=== PATIENT | male | born 1950 | race Caucasian/White ===

== ENCOUNTER 2018-11-28 12:26 | Emergency (ER) | payer MEDICARE, BC ==
[2018-11-28] MEDS ORDERED: Ondansetron 4 MG/2 ML SDV IM ONE (13:03)
--- NOTE | 2018-11-28 13:03 | EDM.PDOC ---
ED HPI GENERAL MEDICAL PROBLEM - General Chief Complaint: Back Pain or Injury Stated Complaint: DIZZY,VOMITING,BACK PAIN Time Seen by Provider: 11/28/18 12:49 Source of Information: Reports: Patient, Family, RN, RN Notes Reviewed History Limitations: Reports: No Limitations - History of Present Illness INITIAL COMMENTS - FREE TEXT/NARRATIVE: Patient presents to the ED at [facility] for the evaluation of left mid thoracic back pain. Patient states he does not remember any exact injury. He thinks his back pain is from "overuse." He states the pain is sharp, stabbing, and throbbing, especially with movements. The patient is also having nausea and vomiting when the pain is at its worse. No previous history of any injury or trauma. No previous back surgeries. He denies any radiation of the pain. Deep breaths do not make the pain worse. Onset Date: 11/27/18 Duration: Constant Location: Reports: Back Quality: Reports: Sharp, Stabbing, Throbbing Severity: Severe Improves with: Reports: Rest Worsens with: Reports: Movement Context: Denies: Activity, Sick Contact, Trauma Associated Symptoms: Reports: Nausea/Vomiting Treatments [employer]: Reports: Acetaminophen Left Middle Back Pain Score (Numeric/FACES): 10 - Related Data Allergies Allergy/AdvReac Type Severity Reaction Status Date / Time No Known Drug Allergies Allergy Other Verified 11/28/18 12:34 Home Meds: Home Meds Cyclobenzaprine HCl 10 mg PO Q8H PRN #10 tablet 11/28/18 [Rx] Ondansetron HCl [Ondansetron] 4 mg PO Q8H PRN #10 tablet 11/28/18 [Rx] Past Medical History Other Endocrine/Metabolic History: ?diabetes. Pt is supposed to be on Metformin however has not been taking it. - Past Surgical History Musculoskeletal Surgical History: Reports: Knee Replacement Social & Family History - Tobacco Use Smoking Status *Q: Never Smoker - Recreational Drug Use Recreational Drug Use: No ED ROS GENERAL - Review of Systems Review Of Systems: See Below Constitutional: Denies: Fever, Chills Respiratory: Denies: Shortness of Breath, Cough Cardiovascular: Denies: Chest Pain, Palpitations GI/Abdominal: Reports: Nausea, Vomiting Musculoskeletal: Reports: Back Pain Skin: Reports: No Symptoms Neurological: Reports: No Symptoms ED EXAM, UPPER BACK/NECK PAIN - Physical Exam Exam: See Below Exam Limited By: No Limitations General Appearance: Alert, No Apparent Distress Head Exam: Atraumatic, Normocephalic Neck Exam: Non-Tender Nexus Criteria: No: Posterior, Midline Cervical Tenderness, Altered Level of Consciousness, Focal Neurological Deficit Cardiovascular/Respiratory: Regular Rate, Rhythm GI/Abdominal: Normal Bowel Sounds, Soft, Non-Tender Back Exam: Muscle Spasm, Paraspinal Tenderness Neurologic: Alert, Oriented x 3 Skin Exam: Normal Color, Warm/Dry Course - Vital Signs Last Recorded V/S: Last Vital Signs Temp 97.4 F 11/28/18 12:27 Pulse 69 11/28/18 12:27 Resp 18 11/28/18 12:27 BP 164/86 H 11/28/18 12:27 Pulse Ox 96 11/28/18 12:27 - Orders/Labs/Meds Orders: Active Orders 24 hr Category Date Time Status Orphenadrine [Norflex] Med 11/28/18 13:15 Ordered 60 mg IM Q12H Medication Orders Orphenadrine Citrate (Norflex) 60 mg IM Q12H MARY Meds: Medications Generic Name Dose Route Start Last Admin Trade Name Freq PRN Reason Stop Dose Admin Orphenadrine Citrate 60 mg 11/28/18 13:15 Norflex IM Q12H MARY Discontinued Medications Generic Name Dose Route Start Last Admin Trade Name Freq PRN Reason Stop Dose Admin Ondansetron HCl 4 mg 11/28/18 13:03 Zofran IM 11/28/18 13:04 ONETIME ONE Departure - Departure Time of Disposition: 13:04 Disposition: Home, Self-Care 01 Condition: Good Clinical Impression: Muscle spasm - Discharge Information *PRESCRIPTION DRUG MONITORING PROGRAM REVIEWED*: Not Applicable *COPY OF PRESCRIPTION DRUG MONITORING REPORT IN PATIENT LIZZIE: Not Applicable Prescriptions: Cyclobenzaprine HCl 10 mg PO Q8H PRN #10 tablet PRN Reason: Muscle Spasm Ondansetron HCl [Ondansetron] 4 mg PO Q8H PRN #10 tablet PRN Reason: Nausea/Vomiting Instructions: Muscle Cramps and Spasms Referrals: Kristofer Olivares MD [Primary Care Provider] - Forms: ED Department Discharge Additional Instructions: 1. Stay well hydrated and rest 2. Take medications as directed; they can make you drowsy 3. See your PCP as symptoms warrant - Problem List Review Problem List Initiated/Reviewed/Updated: Yes - My Orders Last 24 Hours: My Active Orders 11/28/18 13:15 Orphenadrine [Norflex] 60 mg IM Q12H - Assessment/Plan Last 24 Hours: My Active Orders 11/28/18 13:15 Orphenadrine [Norflex] 60 mg IM Q12H Assessment:: Muscle spasm, thoracic Plan: Assessment findings discussed with patient. No acute red flags or emergency. Will treat with IM Norflex in ER and start on Flexeril for home. Patient to follow up with PCP. Patient is also scheduled to see a provider at 3pm today.
== END 2018-11-28 13:45 | disposition home or self-care (01) ==
LOC: VM.ED 12:26
DX: M62.830 Muscle spasm of back (principal)
CPT/HCPCS: 96372; 99283; J2360; J2405

== ENCOUNTER 2019-09-19 15:41 | Observation (INO) | payer MEDICARE, BC ==
[2019-09-19] MEDS ORDERED: Lactated Ringers 1,000 ML IV ONE (15:50)
[2019-09-19] MEDS ORDERED: Sodium Chloride 0.9% 10 ML Syringe FLUSH PRN (15:58)
[2019-09-19] MEDS ORDERED: Ketorolac 30 MG/ML SDV IVPUSH ONE (15:58)
[2019-09-19] MEDS ORDERED: diphenhydrAMINE 50 MG/ML SDV IVPUSH ONE ×2 (15:58→18:07)
[2019-09-19 16:22] LABS: ANION GAP 17.5 mmol/L (10-20); CHLORIDE,CL 106 mmol/L (98-107); SODIUM,NA 143 mmol/L (136-145)
[2019-09-19] MEDS ORDERED: HYDROmorphone 1 MG/ML Syringe IVPUSH ONE ×2 (16:28→17:13)
--- NOTE | 2019-09-19 16:32 | EDM.PDOC ---
ED HPI GENERAL MEDICAL PROBLEM - General Chief Complaint: Genitourinary Problem Stated Complaint: kidney stone Time Seen by Provider: 09/19/19 15:50 Source of Information: Reports: Patient History Limitations: Reports: No Limitations - History of Present Illness INITIAL COMMENTS - FREE TEXT/NARRATIVE: She comes emergency department today with complaints of right flank pain. Since yesterday he has had worsening right flank pain. Initially started kind of intermittently and is become constant in the right flank and it radiates around to the right side of his abdomen. He has had multiple kidney stones in the past primarily about 1 year ago on the left. This really feels like a kidney stone to him. He has no other pain in his abdomen. He has complained of nausea and vomiting is been throwing up most the morning and unable to keep anything down. No len hematuria dysuria. No fever no chills. Right Flank Pain Score (Numeric/FACES): 10 - Related Data Allergies Allergy/AdvReac Type Severity Reaction Status Date / Time No Known Drug Allergies Allergy Other Verified 09/19/19 16:19 Home Meds: Home Meds Pioglitazone HCl 30 mg PO DAILY 09/19/19 [History] Past Medical History Other Endocrine/Metabolic History: ?diabetes. Pt is supposed to be on Metformin however has not been taking it. - Past Surgical History Musculoskeletal Surgical History: Reports: Knee Replacement ED ROS GENERAL - Review of Systems Review Of Systems: Comprehensive ROS is negative, except as noted in HPI. ED EXAM, RENAL/ - Physical Exam Exam: See Below Exam Limited By: No Limitations General Appearance: Alert, WD/WN, Mild Distress Throat/Mouth: Normal Inspection Head: Atraumatic, Normocephalic Neck: Normal Inspection, Supple Respiratory/Chest: No Respiratory Distress, Lungs Clear, Normal Breath Sounds, No Accessory Muscle Use, Chest Non-Tender Cardiovascular: Normal Peripheral Pulses, Regular Rate, Rhythm GI/Abdominal: Normal Bowel Sounds, Soft, Non-Tender (Male) Exam: Deferred Rectal (Males) Exam: Deferred Back Exam: CVA Tenderness (R). No: CVA Tenderness (L) Extremities: Normal Inspection, Normal Range of Motion, Normal Capillary Refill Neurological: Alert, Oriented, Normal Cognition, Normal Gait, No Motor/Sensory Deficits Psychiatric: Normal Affect Skin Exam: Warm, Dry, Intact, Normal Color Lymphatic: No Adenopathy Course - Vital Signs Last Recorded V/S: Last Vital Signs Temp 36.4 C 09/19/19 15:45 Pulse 96 09/19/19 15:45 Resp 18 09/19/19 15:45 BP 161/81 H 09/19/19 15:45 Pulse Ox 96 09/19/19 15:45 - Orders/Labs/Meds Orders: Active Orders 24 hr Category Date Time Status Admission Status [Patient Status] [ADT] Routine ADT 09/19/19 19:49 Ordered Sodium Chloride 0.9% [Saline Flush] Med 09/19/19 15:58 Active 10 ml FLUSH ASDIRECTED PRN Peripheral IV Insertion Adult [OM.PC] Stat Oth 09/19/19 15:58 Ordered Medication Orders Sodium Chloride (Saline Flush) 10 ml FLUSH ASDIRECTED PRN PRN Reason: Keep Vein Open Labs: Laboratory Tests 09/19/19 09/19/19 09/19/19 Range/Units 15:48 15:50 15:50 WBC 8.3 (4.0-10.0) x10^3/uL RBC 5.19 (4.5-6.0) x10^6/uL Hgb 15.5 (14.0-18.0) g/dL Hct 45.8 (40.0-52.0) % MCV 88.2 (78.0-93.0) fL MCH 29.9 (26.0-32.0) pg MCHC 33.8 (32.0-36.0) g/dL RDW Coeff of John 13.1 (10.0-15.0) % Plt Count 154 (130-400) x10^3/uL Neut % (Auto) 79.3 (50.0-80.0) % Lymph % (Auto) 12.7 L (25.0-50.0) % [place] % (Auto) 7.2 (2.0-11.0) % Eos % (Auto) 0.4 (0.0-4.0) % Baso % (Auto) 0.4 (0.2-1.2) % Sodium 143 (136-145) mmol/L Potassium 4.5 (3.5-5.1) mmol/L Chloride 106 (98-107) mmol/L Carbon Dioxide 24 (21-32) mmol/L Anion Gap 17.5 (10-20) mmol/L BUN 20 H (7-18) mg/dL Creatinine 1.3 (0.70-1.30) mg/dL Est Cr Clr Drug Dosing TNP Estimated GFR (MDRD) 55 Glucose 162 H (74-106) mg/dL Calcium 10.1 (8.5-10.1) mg/dL Corrected Calcium 10.10 (8.5-10.1) mg/dL Total Bilirubin 1.4 H (0.2-1.0) mg/dL AST 30 (15-37) U/L ALT 41 (16-63) U/L Alkaline Phosphatase 101 (46-116) U/L Total Protein 7.9 (6.4-8.2) g/dL Albumin 4.0 (3.4-5.0) g/dL Globulin 3.9 Albumin/Globulin Ratio 1.03 Urine Color Dark yellow H (YELLOW) Urine Appearance Cloudy H (CLEAR) Urine pH 5.0 (5.0-8.0) Ur Specific [place] 1.025 Urine Protein 30 H (NEGATIVE) mg/dL Urine Glucose (UA) Negative (NEGATIVE) mg/dL Urine Ketones Trace H (NEGATIVE) mg/dL Urine Occult Blood Moderate H (NEGATIVE) Urine Nitrite Negative (NEGATIVE) Urine Bilirubin Small H (NEGATIVE) Urine Urobilinogen 1.0 (0.2) EU/dL Ur Leukocyte Esterase Negative (NEGATIVE) Urine RBC 40-50 H (NOT SEEN) /HPF Urine WBC 0-5 (NOT SEEN) /HPF Ur Squamous Epith Cells Few H (NEGATIVE) /HPF Amorphous Sediment Occasional Urine Bacteria Occasional H (NEGATIVE) /HPF Urine Mucus Few H (NEGATIVE) /LPF Meds: Medications Generic Name Dose Route Start Last Admin Trade Name Freq PRN Reason Stop Dose Admin Sodium Chloride 10 ml 09/19/19 15:58 Saline Flush FLUSH ASDIRECTED PRN Keep Vein Open Discontinued Medications Generic Name Dose Route Start Last Admin Trade Name Freq PRN Reason Stop Dose Admin Diphenhydramine HCl 25 mg 09/19/19 15:58 09/19/19 16:05 Benadryl IVPUSH 09/19/19 15:59 25 mg ONETIME ONE Administration Diphenhydramine HCl 25 mg 09/19/19 18:07 09/19/19 18:15 Benadryl IVPUSH 09/19/19 18:08 25 mg ONETIME ONE Administration Hydromorphone HCl 0.5 mg 09/19/19 16:28 09/19/19 16:42 Dilaudid IVPUSH 09/19/19 16:29 0.5 mg ONETIME ONE Administration Hydromorphone HCl 0.5 mg 09/19/19 17:13 09/19/19 17:18 Dilaudid IVPUSH 09/19/19 17:14 0.5 mg ONETIME ONE Administration Lactated Ringer's 1,000 mls @ 999 mls/hr 09/19/19 15:50 09/19/19 16:00 Ringers, Lactated IV 09/19/19 16:50 999 mls/hr ONETIME ONE Administration Promethazine HCl 12.5 mg/ 100.5 mls @ 400 mls/hr 09/19/19 19:30 09/19/19 19: 38 Sodium Chloride IV 09/19/19 19:45 400 mls/hr ONETIME ONE Administration Ketorolac Tromethamine 15 mg 09/19/19 15:58 09/19/19 16:05 Toradol IVPUSH 09/19/19 15:59 15 mg ONETIME ONE Administration Ondansetron HCl 4 mg 09/19/19 18:05 09/19/19 18:15 Zofran IV 09/19/19 18:06 4 mg ONETIME ONE Administration Orphenadrine Citrate 60 mg 09/19/19 15:58 09/19/19 16:05 Norflex IV 09/19/19 15:59 60 mg NOW STA Administration - Re-Assessments/Exams Free Text/Narrative Re-Assessment/Exam: 09/19/19 16:31 IV LR 1 liter wide open Benadryl 25mg IVP Ketorolac 15mg IVP Norflex 60mg IVP Labs drawn URine has primarily large amount of blood in the urine. CT abd pelvis with contrast. 09/19/19 19:37 CT abdomen pelvis per radiology shows a 6 mm proximal right ureteral calculus. Moderate right-sided hydronephrosis. He has a 1 cm calculus in the midpole of the right kidney and a 3 mm lower pole right renal calculus as well. He required a total of 1 mg of Dilaudid and he did have complete pain relief and he rested comfortably in the emergency department over the next couple of hours. Continued to complain of some nausea but he was not vomiting. After some Zofran and Benadryl repeated he continues to complain of nausea. I would like to admit him under observation for renal colic kidney stone and intractable nausea and vomiting. The patient refuses and would like to go home. I am okay with this as his kidney function is appropriate and his pain is under control. I would like him to follow up closely with primary care provider tomorrow for recheck to ensure that he is improving and passing the stone. WE will send him home with Zofran and Hydrocodone for pain and strain his urine. He is comfortable with this plan and understands the risks of going home such as uncontrolled pain and nausea and vomiting he is understanding of this and his questions answered. 09/19/19 19:51 Eventually the patients is refusing to come and get him and he agrees to admission at this time. We will hydrate pain and nausea management over the night and repeat his CT scan in the morning to make sure the stone is moving and improving further decisions will be made at that time. Departure - Departure Time of Disposition: 19:41 Disposition: Home, Self-Care 01 Clinical Impression: Ureterolithiasis, Nephrolithiasis, Intractable nausea and vomiting Nausea and vomiting Qualifiers: Vomiting type: unspecified Vomiting Intractability: non-intractable Qualified Code(s): R11.2 - Nausea with vomiting, unspecified - Discharge Information *PRESCRIPTION DRUG MONITORING PROGRAM REVIEWED*: Not Applicable *COPY OF PRESCRIPTION DRUG MONITORING REPORT IN PATIENT LIZZIE: Not Applicable Instructions: Kidney Stones, [id number], Nausea and Vomiting, Adult, Easy-to- Read, Pain Medicine Instructions, [id number] Referrals: Kristofer Olivares MD [Primary Care Provider] - Forms: ED Department Discharge Sepsis Event Note - Evaluation Sepsis Screening Result: No Definite Risk - Focused Exam Vital Signs: Vital Signs Temp Pulse Resp BP Pulse Ox 09/19/19 15:45 36.4 C 96 18 161/81 H 96 Date Exam was Performed: 09/19/19 Time Exam was Performed: 19:51 - Problem List & Annotations (1) Nausea and vomiting SNOMED Code(s): 99352259 Code(s): R11.2 - NAUSEA WITH VOMITING, UNSPECIFIED Status: Acute Current Visit: Yes Qualifiers: Vomiting type: unspecified Vomiting Intractability: non-intractable Qualified Code(s): R11.2 - Nausea with vomiting, unspecified (2) Ureterolithiasis SNOMED Code(s): 78175698 Code(s): N20.1 - CALCULUS OF URETER Status: Acute Current Visit: Yes (3) Nephrolithiasis SNOMED Code(s): 95552996 Code(s): N20.0 - CALCULUS OF KIDNEY Status: Acute Current Visit: Yes (4) Intractable nausea and vomiting SNOMED Code(s): 007926901 Code(s): R11.2 - NAUSEA WITH VOMITING, UNSPECIFIED Status: Acute Current Visit: Yes - My Orders Last 24 Hours: My Active Orders 09/19/19 15:58 Sodium Chloride 0.9% [Saline Flush] 10 ml FLUSH ASDIRECTED PRN Peripheral IV Insertion Adult [OM.PC] Stat 09/19/19 19:49 Admission Status [Patient Status] [ADT] Routine - Assessment/Plan Admission H&P: Please use this note as an admission H&P Last 24 Hours: My Active Orders 09/19/19 15:58 Sodium Chloride 0.9% [Saline Flush] 10 ml FLUSH ASDIRECTED PRN Peripheral IV Insertion Adult [OM.PC] Stat 09/19/19 19:49 Admission Status [Patient Status] [ADT] Routine Assessment:: Renal Colic right side, 6mm stone proximal right ureteral calculus. Moderate right sided hydronephrosis Nephrolithiasis intractable nausea. Plan: admit to observation pain and nausea management and repeat his CT scan in the morning.
--- NOTE | 2019-09-19 17:06 | CT ---
[id number] CT/CT Abdomen Pelvis WO IV Exam: CT Abdomen Pelvis WO IV Clinical Data: RIGHT-SIDED FLANK PAIN HEMATURIA COMPARISON: NO PREVIOUS SIMILAR EXAM IS AVAILABLE FINDINGS: A 1 cm calculus is seen in the midpole of the right kidney A 3 mm lower pole right renal calculus is seen There is a small lower pole right renal cyst There is mild right-sided hydronephrosis This results from a 6 mm proximal right ureteral calculus on image 67, series 2 There are atheromatous calcifications The pelvis shows no mass or adenopathy The aorta, adrenals, liver, spleen, pancreas, and gallbladder otherwise are unremarkable The appendix appears unremarkable IMPRESSION: 6 MM PROXIMAL RIGHT URETERAL CALCULUS MODERATE RIGHT-SIDED HYDRONEPHROSIS RESIDUAL RIGHT-SIDED NEPHROLITHIASIS Sagar Morfin MD 09/19/19 [id number] Thank you for allowing us to participate in the care of your patient.
[2019-09-19] MEDS ORDERED: Ondansetron 4 MG/2 ML SDV IV ONE (18:05)
[2019-09-19] MEDS ORDERED: Promethazine 12.5 MG in Sodium Chloride 0.9% 100 ML IV ONE (19:30)
[2019-09-19] MEDS ORDERED: Ondansetron 4 MG/2 ML SDV IVPUSH PRN (19:59)
[2019-09-19] MEDS ORDERED: HYDROmorphone 1 MG/ML Syringe IVPUSH PRN ×2 (19:59→20:02)
[2019-09-19] MEDS ORDERED: Lactated Ringers 1,000 ML IV SCH (20:00)
[2019-09-19] MEDS ORDERED: diphenhydrAMINE 50 MG/ML SDV IVPUSH PRN (20:02)
[2019-09-19] MEDS ORDERED: Acetaminophen/HYDROcodone 325-5 MG Tab PO PRN (20:05)
[2019-09-19] MEDS: Tamsulosin 0.4 MG Cap.ER PO SCH (20:38)
[2019-09-20 07:31] LABS: ANION GAP 13.9 mmol/L (10-20)
[2019-09-20] MEDS: Tamsulosin 0.4 MG Cap.ER PO SCH (07:58)
--- NOTE | 2019-09-20 08:37 | CT ---
[id number] CT/CT Abdomen Pelvis W IV EXAM: CT Abdomen Pelvis W IV CLINICAL DATA: KIDNEY STONE COMPARISON: CORRELATION IS MADE WITH YESTERDAY FINDINGS: The proximal to mid right ureteral calculus is unchanged in position Urology intervention likely will be needed There is still significant obstruction of the right kidney The calculus is seen on image 79, series 2 Other calculi of the right kidney also are seen There additionally is a cirrhotic appearance of the liver IMPRESSION: NO CHANGE IN POSITION OF RIGHT URETERAL CALCULUS Sagar Morfin MD 09/20/19 0836 Thank you for allowing us to participate in the care of your patient.
--- NOTE | 2019-09-20 09:19 | PCM.DCSUM1 ---
Discharge Summary - Hospital Course HPI Initial Comments: He comes emergency department today with complaints of right flank pain. Since yesterday he has had worsening right flank pain. Initially started kind of intermittently and is become constant in the right flank and it radiates around to the right side of his abdomen. He has had multiple kidney stones in the past primarily about 1 year ago on the left. This really feels like a kidney stone to him. He has no other pain in his abdomen. He has complained of nausea and vomiting is been throwing up most the morning and unable to keep anything down. No len hematuria dysuria. No fever no chills. Brief History: The patient was admitted into the hospital under observation for further management of a right proximal 6 mm kidney stone with moderate hydronephrosis and intractable nausea and vomiting. Is also noticed that he had a stone in the right renal pelvis is approximately 1 cm in size. He was hydrated throughout the night and received Zofran Benadryl for nausea and vomiting which she has not had since 2300 last night. His pain is been completely resolved and he really feels just some residual soreness on the right flank this morning. His initial creatinine was 1.3 and it has minimally increased to 1.8 this morning. The patient feels much better and he would like to go home although repeat CT scan of the abdomen shows that the stone in the right proximal ureter has not changed position. Hydronephrosis is about the same. Despite his almost complete resolution of his pain nausea and vomiting his stone has not moved. I called and spoke with Dr. Christopher at [facility] in [place] due to the continued stone that is worsening his kidney function. HPI hospital course was relayed to him verbally over the phone. And he accepted the patient in transfer. Discussed the plan of care with the patient he was comfortable with this plan. The patient refuses to go by ambulance and will have his drive him to [facility]. We will keep him n.p.o. As he is somatic at this time I feel that private vehicle is appropriate. His IV will be left in place and we will transfer him to [facility] to see urology for further management of this ureterolithiasis that is not improving. Patient is comfortable with this plan his questions are answered. - Discharge Data Discharge Date: 09/20/19 Discharge Disposition: Home, Self-Care 01 Condition: Stable - Referral to Home Health Primary Care Physician: Kristofer Olivares MD - Discharge Diagnosis/Problem(s) (1) Nausea and vomiting SNOMED Code(s): 73014708 ICD Code: R11.2 - NAUSEA WITH VOMITING, UNSPECIFIED Status: Acute Current Visit: Yes Qualifiers: Vomiting type: unspecified Vomiting Intractability: non-intractable Qualified Code(s): R11.2 - Nausea with vomiting, unspecified (2) Ureterolithiasis SNOMED Code(s): 62040782 ICD Code: N20.1 - CALCULUS OF URETER Status: Acute Current Visit: Yes (3) Nephrolithiasis SNOMED Code(s): 74402192 ICD Code: N20.0 - CALCULUS OF KIDNEY Status: Acute Current Visit: Yes (4) Intractable nausea and vomiting SNOMED Code(s): 276478706 ICD Code: R11.2 - NAUSEA WITH VOMITING, UNSPECIFIED Status: Acute Current Visit: Yes (5) Acute kidney injury SNOMED Code(s): 18686509, 63231624 ICD Code: N17.9 - ACUTE KIDNEY FAILURE, UNSPECIFIED Status: Acute Current Visit: Yes Problem Details: Most likely due to outlet obstruction - Patient Summary/Data Hospital Course: The patient was admitted into the hospital under observation for further management of a right proximal 6 mm kidney stone with moderate hydronephrosis and intractable nausea and vomiting. Is also noticed that he had a stone in the right renal pelvis is approximately 1 cm in size. He was hydrated throughout the night and received Zofran Benadryl for nausea and vomiting which she has not had since 2300 last night. His pain is been completely resolved and he really feels just some residual soreness on the right flank this morning. His initial creatinine was 1.3 and it has minimally increased to 1.8 this morning. The patient feels much better and he would like to go home although repeat CT scan of the abdomen shows that the stone in the right proximal ureter has not changed position. Hydronephrosis is about the same. Despite his almost complete resolution of his pain nausea and vomiting his stone has not moved. I called and spoke with Dr. Christopher at [facility] in [place] due to the continued stone that is worsening his kidney function. HPI hospital course was relayed to him verbally over the phone. And he accepted the patient in transfer. Discussed the plan of care with the patient he was comfortable with this plan. The patient refuses to go by ambulance and will have his drive him to [facility]. We will keep him n.p.o. As he is somatic at this time I feel that private vehicle is appropriate. His IV will be left in place and we will transfer him to [facility] to see urology for further management of this ureterolithiasis that is not improving. Patient is comfortable with this plan his questions are answered. - Patient Instructions Other/Special Instructions: Go from the Hospital here in [place] to [facility] the [facility] for further care and management. Nothing to eat or drink while you are having your drive you to [facility]. You will be admitted under observation once you get to [facility] to the [facility]. - Discharge Plan *PRESCRIPTION DRUG MONITORING PROGRAM REVIEWED*: Not Applicable *COPY OF PRESCRIPTION DRUG MONITORING REPORT IN PATIENT LIZZIE: Not Applicable Home Medications: Home Meds Pioglitazone HCl 30 mg PO DAILY 09/19/19 [History] Patient Handouts: Kidney Stones, [id number], Nausea and Vomiting, Adult, Easy -to-Read, Pain Medicine Instructions, [id number] Forms: ED Department Discharge Referrals: Kristofer Olivares MD [Primary Care Provider] - - Discharge Summary/Plan Comment DC Time >30 min.: Yes - General Info Admission Dx/Problem (Free Text: Ureterolithiasis Nephro lithiasis Intractable nausea and vomiting Hydronephrosis Subjective Update: The patient is actually slept quite well throughout the night. His pain is been almost completely gone and really only has some pressure in the right flank that he relates of 1 out of 10. He has not had any nausea or vomiting since about 11:00 last night. He is resting quite well and he feels very good this morning and he would like to go home. Functional Status: Reports: Pain Controlled - Review of Systems General: Reports: No Symptoms, Night Sweats Pulmonary: Reports: No Symptoms Cardiovascular: Reports: No Symptoms Gastrointestinal: Reports: No Symptoms Genitourinary: Reports: Flank Pain (Mild right flank pain) Musculoskeletal: Reports: No Symptoms Skin: Reports: No Symptoms Neurological: Reports: No Symptoms Psychiatric: Reports: No Symptoms - Patient Data Vitals - Most Recent: Last Vital Signs Temp 37.2 C 09/20/19 06:00 Pulse 67 09/20/19 06:00 Resp 18 09/19/19 15:45 BP 145/60 H 09/20/19 06:00 Pulse Ox 96 09/20/19 06:00 Weight - Most Recent: 113.398 kg I&O - Last 24 hours: Intake & Output 09/19/19 09/20/19 09/20/19 22:59 06:59 14:59 Intake Total 742 Output Total 400 700 Balance -400 42 Lab Results - Last 24 hrs: Laboratory Results - last 24 hr 09/19/19 09/19/19 09/19/19 Range/Units 15:48 15:50 15:50 WBC 8.3 (4.0-10.0) x10^3/uL RBC 5.19 (4.5-6.0) x10^6/uL Hgb 15.5 (14.0-18.0) g/dL Hct 45.8 (40.0-52.0) % MCV 88.2 (78.0-93.0) fL MCH 29.9 (26.0-32.0) pg MCHC 33.8 (32.0-36.0) g/dL RDW Coeff of John 13.1 (10.0-15.0) % Plt Count 154 (130-400) x10^3/uL Neut % (Auto) 79.3 (50.0-80.0) % Lymph % (Auto) 12.7 L (25.0-50.0) % [place] % (Auto) 7.2 (2.0-11.0) % Eos % (Auto) 0.4 (0.0-4.0) % Baso % (Auto) 0.4 (0.2-1.2) % Sodium 143 (136-145) mmol/L Potassium 4.5 (3.5-5.1) mmol/L Chloride 106 (98-107) mmol/L Carbon Dioxide 24 (21-32) mmol/L Anion Gap 17.5 (10-20) mmol/L BUN 20 H (7-18) mg/dL Creatinine 1.3 (0.70-1.30) mg/dL Est Cr Clr Drug Dosing TNP Estimated GFR (MDRD) 55 Glucose 162 H (74-106) mg/dL Calcium 10.1 (8.5-10.1) mg/dL Corrected Calcium 10.10 (8.5-10.1) mg/dL Total Bilirubin 1.4 H (0.2-1.0) mg/dL AST 30 (15-37) U/L ALT 41 (16-63) U/L Alkaline Phosphatase 101 (46-116) U/L Total Protein 7.9 (6.4-8.2) g/dL Albumin 4.0 (3.4-5.0) g/dL Globulin 3.9 Albumin/Globulin Ratio 1.03 Urine Color Dark yellow H (YELLOW) Urine Appearance Cloudy H (CLEAR) Urine pH 5.0 (5.0-8.0) Ur Specific [place] 1.025 Urine Protein 30 H (NEGATIVE) mg/dL Urine Glucose (UA) Negative (NEGATIVE) mg/dL Urine Ketones Trace H (NEGATIVE) mg/dL Urine Occult Blood Moderate H (NEGATIVE) Urine Nitrite Negative (NEGATIVE) Urine Bilirubin Small H (NEGATIVE) Urine Urobilinogen 1.0 (0.2) EU/dL Ur Leukocyte Esterase Negative (NEGATIVE) Urine RBC 40-50 H (NOT SEEN) /HPF Urine WBC 0-5 (NOT SEEN) /HPF Ur Squamous Epith Cells Few H (NEGATIVE) /HPF Amorphous Sediment Occasional Urine Bacteria Occasional H (NEGATIVE) /HPF Urine Mucus Few H (NEGATIVE) /LPF 09/20/19 09/20/19 Range/Units 06:37 06:37 WBC 9.2 (4.0-10.0) x10^3/uL RBC 4.70 (4.5-6.0) x10^6/uL Hgb 14.1 (14.0-18.0) g/dL Hct 41.6 (40.0-52.0) % MCV 88.5 (78.0-93.0) fL MCH 30.0 (26.0-32.0) pg MCHC 33.9 (32.0-36.0) g/dL RDW Coeff of John 13.9 (10.0-15.0) % Plt Count 129 L (130-400) x10^3/uL Neut % (Auto) 73.9 (50.0-80.0) % Lymph % (Auto) 11.1 L (25.0-50.0) % [place] % (Auto) 15.0 H (2.0-11.0) % Eos % (Auto) 0.0 (0.0-4.0) % Baso % (Auto) 0.0 L (0.2-1.2) % Sodium 142 (136-145) mmol/L Potassium 4.9 (3.5-5.1) mmol/L Chloride 107 (98-107) mmol/L Carbon Dioxide 26 (21-32) mmol/L Anion Gap 13.9 (10-20) mmol/L BUN 25 H (7-18) mg/dL Creatinine 1.8 H (0.70-1.30) mg/dL Est Cr Clr Drug Dosing 41.68 Estimated GFR (MDRD) 38 Glucose 148 H (74-106) mg/dL Calcium 9.8 (8.5-10.1) mg/dL Corrected Calcium (8.5-10.1) mg/dL Total Bilirubin (0.2-1.0) mg/dL AST (15-37) U/L ALT (16-63) U/L Alkaline Phosphatase (46-116) U/L Total Protein (6.4-8.2) g/dL Albumin (3.4-5.0) g/dL Globulin Albumin/Globulin Ratio Urine Color (YELLOW) Urine Appearance (CLEAR) Urine pH (5.0-8.0) Ur Specific [place] Urine Protein (NEGATIVE) mg/dL Urine Glucose (UA) (NEGATIVE) mg/dL Urine Ketones (NEGATIVE) mg/dL Urine Occult Blood (NEGATIVE) Urine Nitrite (NEGATIVE) Urine Bilirubin (NEGATIVE) Urine Urobilinogen (0.2) EU/dL Ur Leukocyte Esterase (NEGATIVE) Urine RBC (NOT SEEN) /HPF Urine WBC (NOT SEEN) /HPF Ur Squamous Epith Cells (NEGATIVE) /HPF Amorphous Sediment Urine Bacteria (NEGATIVE) /HPF Urine Mucus (NEGATIVE) /LPF Med Orders - Current: Current Medications Hydrocodone Bitart/Acetaminophen ([place] 325-5 Mg) 1 tab PO Q4H PRN PRN Reason: Pain (mild 1-3) Diphenhydramine HCl (Benadryl) 25 mg IVPUSH Q6H PRN PRN Reason: Nausea/Vomiting Last Admin: 09/19/19 23:09 Dose: 25 mg Hydromorphone HCl (Dilaudid) 1 mg IVPUSH Q4HR PRN PRN Reason: Pain (severe 7-10) Last Admin: 09/19/19 23:04 Dose: 1 mg Hydromorphone HCl (Dilaudid) 0.5 mg IVPUSH Q4H PRN PRN Reason: Pain (moderate 4-6) Lactated Ringer's (Ringers, Lactated) 1,000 mls @ 75 mls/hr IV ASDIRECTED MARY Last Admin: 09/19/19 20:32 Dose: 75 mls/hr Ondansetron HCl (Zofran) 4 mg IVPUSH Q8H PRN PRN Reason: Nausea Last Admin: 09/19/19 23:08 Dose: 4 mg Sodium Chloride (Saline Flush) 10 ml FLUSH ASDIRECTED PRN PRN Reason: Keep Vein Open Last Admin: 09/19/19 23:09 Dose: 10 ml Tamsulosin HCl (Flomax) 0.4 mg PO DAILY [facility] Last Admin: 09/20/19 07:58 Dose: 0.4 mg Discontinued Medications Diphenhydramine HCl (Benadryl) 25 mg IVPUSH ONETIME ONE Stop: 09/19/19 15:59 Last Admin: 09/19/19 16:05 Dose: 25 mg Diphenhydramine HCl (Benadryl) 25 mg IVPUSH ONETIME ONE Stop: 09/19/19 18:08 Last Admin: 09/19/19 18:15 Dose: 25 mg Hydromorphone HCl (Dilaudid) 0.5 mg IVPUSH ONETIME ONE Stop: 09/19/19 16:29 Last Admin: 09/19/19 16:42 Dose: 0.5 mg Hydromorphone HCl (Dilaudid) 0.5 mg IVPUSH ONETIME ONE Stop: 09/19/19 17:14 Last Admin: 09/19/19 17:18 Dose: 0.5 mg Lactated Ringer's (Ringers, Lactated) 1,000 mls @ 999 mls/hr IV ONETIME ONE Stop: 09/19/19 16:50 Last Admin: 09/19/19 16:00 Dose: 999 mls/hr Promethazine HCl 12.5 mg/ (Sodium Chloride) 100.5 mls @ 400 mls/hr IV ONETIME ONE Stop: 09/19/19 19:45 Last Admin: 09/19/19 19:38 Dose: 400 mls/hr Ketorolac Tromethamine (Toradol) 15 mg IVPUSH ONETIME ONE Stop: 09/19/19 15:59 Last Admin: 09/19/19 16:05 Dose: 15 mg Ondansetron HCl (Zofran) 4 mg IV ONETIME ONE Stop: 09/19/19 18:06 Last Admin: 09/19/19 18:15 Dose: 4 mg Orphenadrine Citrate (Norflex) 60 mg IV NOW STA Stop: 09/19/19 15:59 Last Admin: 09/19/19 16:05 Dose: 60 mg Comments:: Patient appears very happy and interactive and in no distress. - Exam General: Reports: Alert, Oriented HEENT: Reports: Pupils Equal, Pupils Reactive Neck: Reports: Supple Lungs: Reports: Clear to Auscultation Cardiovascular: Reports: Regular Rate, Regular Rhythm GI/Abdominal Exam: Normal Bowel Sounds, Soft, Non-Tender (Male) Exam: Deferred Rectal (Males) Exam: Deferred Back Exam: Reports: Normal Inspection, Full Range of Motion Extremities: Normal Inspection, Normal Range of Motion, No Pedal Edema Skin: Reports: Warm, Dry, Intact Neurological: Reports: No New Focal Deficit Psy/Mental Status: Reports: Alert, Normal Affect, Normal Mood
== END 2019-09-20 10:00 | disposition home or self-care (01) ==
LOC: VM.ED 15:41 → VM.MS 19:31
PROVIDERS: ADMIT Nurse Practitioner Family; ATTEND Nurse Practitioner Family
DX: N13.2 Hydronephrosis with renal and ureteral calculous obstruction (principal); N17.9 Acute kidney failure, unspecified
CPT/HCPCS: 36415; 74176; 74177; 80048; 80053; 81001; 85025; A9270; J1170; J1200; J1885; J2360; J2405; J2550; J7050; J7120

== ENCOUNTER 2019-09-26 12:50 | Observation (INO) | payer MEDICARE, BC ==
[2019-09-26] MEDS ORDERED: Ondansetron 4 MG/2 ML SDV IVPUSH ONE (13:05)
[2019-09-26] MEDS ORDERED: Sodium Chloride 0.9% 1,000 ML IV ONE ×2 (13:05→14:22)
[2019-09-26] MEDS ORDERED: HYDROmorphone 1 MG/ML Syringe IVPUSH ONE (13:06)
[2019-09-26 13:56] LABS: CHLORIDE,CL 101 mmol/L (98-107); SODIUM,NA 137 mmol/L (136-145)
--- NOTE | 2019-09-26 13:58 | EDM.PDOC ---
ED HPI GENERAL MEDICAL PROBLEM - General Chief Complaint: Gastrointestinal Problem Stated Complaint: GASTROINTESTINAL Time Seen by Provider: 09/26/19 12:52 Source of Information: Reports: Patient, Old Records History Limitations: Reports: No Limitations - History of Present Illness INITIAL COMMENTS - FREE TEXT/NARRATIVE: Pt. presents to ER with complaints of nausea and vomiting for the past 2 days. He was hospitalized at [facility] in [place] from 09/19-09/21 with kidney stones. He underwent ureteroscopy, laser lithotripsy and subsequent ureteral stent which will be removed next . During his stay at [facility], it appeared that the patient had an episode of new onset a-fib with RVR. This resolved with IV cardiazem, and he was discharged on cardiazem at home. He converted back to a NSR with cardiazem and was not anticoagulated. There was evidence of some ST strain and he did have a positive troponin which has since trended back to normal. He underwent echocardiogram which showed no acute wall motion abnormality as well as Lexiscan which was negative for obvious ischemia. He states that he has not had any episodes of chest pain, palpitations, shortness of breath since discharge. Pt. states that he is really unable to hold down any fluids. Complains of bilious emesis. Denies any fever or chills. Denies any cough or chest congestion. He states that his flank pain has resolved, but complains of diffuse abdominal discomfort that he attributes is due to nausea and vomiting. He states that he has wretched so hard that he occasionally has noted a small amount of blood tinging in the vomit. Onset Date: 09/26/19 Location: Reports: Abdomen, Generalized Abdominal Pain Score (Numeric/FACES): 8 - Related Data Allergies Allergy/AdvReac Type Severity Reaction Status Date / Time No Known Drug Allergies Allergy Other Verified 09/26/19 13:02 Home Meds: Home Meds Pioglitazone HCl 30 mg PO DAILY 09/19/19 [History] Diltiazem [Cardizem CD] 120 mg PO DAILY 09/26/19 [History] Hydrocodone/Acetaminophen [Hydrocodone-Acetamin 5-325 mg] 1 tab PO Q6H PRN 09/25 [History] Sulfamethoxazole/Trimethoprim [Sulfamethoxazole-Tmp Ds Tablet] 1 tab PO BID [History] Past Medical History HEENT History: Reports: None Cardiovascular History: Reports: Afib Respiratory History: Reports: None Gastrointestinal History: Reports: Cirrhosis Genitourinary History: Reports: Hydronephrosis, Other (See Below) Other Genitourinary History: kidney stone Musculoskeletal History: Reports: Osteoarthritis Neurological History: Reports: None Psychiatric History: Reports: None Other Endocrine/Metabolic History: ?diabetes. Pt is supposed to be on Metformin however has not been taking it. Immunologic History: Reports: None Oncologic (Cancer) History: Reports: None Dermatologic History: Reports: None - Infectious Disease History Infectious Disease History: Reports: Chicken Pox, Measles - Past Surgical History Cardiovascular Surgical History: Reports: None Respiratory Surgical History: Reports: None Other Male Surgeries/Procedures: nephrolithiasis Musculoskeletal Surgical History: Reports: Knee Replacement Social & Family History - Family History Family Medical History: Noncontributory - Tobacco Use Smoking Status *Q: Never Smoker - Caffeine Use Caffeine Use: Reports: Coffee, Soda ED ROS GENERAL - Review of Systems Review Of Systems: See Below Constitutional: Reports: No Symptoms HEENT: Reports: No Symptoms Respiratory: Reports: No Symptoms Cardiovascular: Reports: No Symptoms Endocrine: Reports: No Symptoms GI/Abdominal: Reports: Abdominal Pain, Nausea, Vomiting : Reports: Other (see HPI) Musculoskeletal: Reports: No Symptoms Skin: Reports: No Symptoms Neurological: Reports: No Symptoms Psychiatric: Reports: No Symptoms Hematologic/Lymphatic: Reports: No Symptoms Immunologic: Reports: No Symptoms ED EXAM, GENERAL - Physical Exam Exam: See Below Exam Limited By: No Limitations General Appearance: Alert, Anxious, Moderate Distress Eye Exam: Bilateral Eye: EOMI, Normal Fundi, Normal Inspection, PERRL Throat/Mouth: Normal Inspection, Normal Lips, Normal Teeth, Normal Gums, Normal Oropharynx, Normal Voice, No Airway Compromise Head: Atraumatic, Normocephalic Neck: Normal Inspection, Supple, Non-Tender, Full Range of Motion Respiratory/Chest: No Respiratory Distress, Lungs Clear, Normal Breath Sounds, No Accessory Muscle Use, Chest Non-Tender Cardiovascular: Normal Peripheral Pulses, Regular Rate, Rhythm, No Edema, No Gallop, No JVD, No Murmur, No Rub Peripheral Pulses: 4+: Radial (L) GI/Abdominal: Soft, No Mass, Tender, Other (diffusely tender, improved during stay in ER.) (Male) Exam: Deferred Rectal (Males) Exam: Deferred Back Exam: Normal Inspection, Full Range of Motion Extremities: Normal Inspection, Normal Range of Motion, Non-Tender, No Pedal Edema, Normal Capillary Refill Neurological: Alert, Oriented, CN II-XII Intact, Normal Cognition, Normal Gait, Normal Reflexes, No Motor/Sensory Deficits Psychiatric: Normal Affect, Normal Mood Skin Exam: Warm, Dry, Intact, Normal Color, No Rash Lymphatic: No Adenopathy Course - Vital Signs Last Recorded V/S: Last Vital Signs Temp 37.2 C 09/26/19 12:50 Pulse 84 09/26/19 12:50 Resp 18 09/26/19 12:50 BP 165/86 H 09/26/19 12:50 Pulse Ox 96 09/26/19 12:50 - Orders/Labs/Meds Orders: Active Orders 24 hr Category Date Time Status Patient Status [ADT] Routine ADT 09/26/19 14:58 Ordered EKG Documentation Completion [RC] STAT Care 09/26/19 13:17 Active Abdomen 2V AP Flat Upright [CR] Stat Exams 09/26/19 14:15 Stop Req Abdomen 2V AP Flat Upright [CR] Stat Exams 09/26/19 14:15 Taken CULTURE URINE [RM] Stat Lab 09/26/19 14:41 Received UA W/MICROSCOPIC [URIN] Stat Lab 09/26/19 14:41 Results Sodium Chloride 0.9% [Normal Saline] 1,000 ml Med 09/26/19 14:22 Active IV .BOLUS Sodium Chloride 0.9% [Saline Flush] Med 09/26/19 13:04 Active 10 ml FLUSH ASDIRECTED PRN cefTRIAXone [Rocephin] Med 09/26/19 15:00 Once 1 gm IVPUSH STAT ONE Peripheral IV Insertion Adult [OM.PC] Routine Oth 09/26/19 13:04 Ordered Medication Orders Sodium Chloride (Normal Saline) 1,000 mls @ 1,000 mls/hr IV .BOLUS ONE Stop: 09/26/19 15:21 Last Admin: 09/26/19 14:32 Dose: 1,000 mls/hr Sodium Chloride (Saline Flush) 10 ml FLUSH ASDIRECTED PRN PRN Reason: Keep Vein Open Labs: Laboratory Tests 09/26/19 09/26/19 09/26/19 Range/Units 13:15 13:15 13:15 WBC 8.5 (4.0-10.0) x10^3/uL RBC 5.61 (4.5-6.0) x10^6/uL Hgb 16.8 D (14.0-18.0) g/dL Hct 47.9 (40.0-52.0) % MCV 85.4 D (78.0-93.0) fL MCH 29.9 (26.0-32.0) pg MCHC 35.1 (32.0-36.0) g/dL RDW Coeff of John 12.8 (10.0-15.0) % Plt Count 146 (130-400) x10^3/uL Neut % (Auto) 77.3 (50.0-80.0) % Lymph % (Auto) 9.8 L (25.0-50.0) % [place] % (Auto) 11.0 (2.0-11.0) % Eos % (Auto) 1.3 (0.0-4.0) % Baso % (Auto) 0.6 (0.2-1.2) % PT 11.9 (10.0-12.8) SEC INR 1.0 L (2.0-3.5) Sodium 137 (136-145) mmol/L Potassium 5.0 (3.5-5.1) mmol/L Chloride 101 (98-107) mmol/L Carbon Dioxide 27 (21-32) mmol/L Anion Gap 14.0 (10-20) mmol/L BUN 31 H (7-18) mg/dL Creatinine 1.8 H (0.70-1.30) mg/dL Est Cr Clr Drug Dosing TNP Estimated GFR (MDRD) 38 Glucose 200 H (74-106) mg/dL Lactic Acid (0.4-2.0) mmol/L Calcium 10.7 H (8.5-10.1) mg/dL Corrected Calcium 11.18 H (8.5-10.1) mg/dL Magnesium 2.0 (1.8-2.4) mg/dL Total Bilirubin 1.5 H (0.2-1.0) mg/dL AST 37 (15-37) U/L ALT 71 H (16-63) U/L Alkaline Phosphatase 105 (46-116) U/L Troponin I (<=0.056) ng/mL C-Reactive Protein 1.9 H (<=0.9) mg/dL Total Protein 7.6 (6.4-8.2) g/dL Albumin 3.4 (3.4-5.0) g/dL Globulin 4.2 Albumin/Globulin Ratio 0.81 Urine Color (YELLOW) Urine Appearance (CLEAR) Urine pH (5.0-8.0) Ur Specific [place] Urine Protein (NEGATIVE) mg/dL Urine Glucose (UA) (NEGATIVE) mg/dL Urine Ketones (NEGATIVE) mg/dL Urine Occult Blood (NEGATIVE) Urine Nitrite (NEGATIVE) Urine Bilirubin (NEGATIVE) Urine Urobilinogen (0.2) EU/dL Ur Leukocyte Esterase (NEGATIVE) 09/26/19 09/26/19 09/26/19 Range/Units 13:15 13:15 14:41 WBC (4.0-10.0) x10^3/uL RBC (4.5-6.0) x10^6/uL Hgb (14.0-18.0) g/dL Hct (40.0-52.0) % MCV (78.0-93.0) fL MCH (26.0-32.0) pg MCHC (32.0-36.0) g/dL RDW Coeff of John (10.0-15.0) % Plt Count (130-400) x10^3/uL Neut % (Auto) (50.0-80.0) % Lymph % (Auto) (25.0-50.0) % [place] % (Auto) (2.0-11.0) % Eos % (Auto) (0.0-4.0) % Baso % (Auto) (0.2-1.2) % PT (10.0-12.8) SEC INR (2.0-3.5) Sodium (136-145) mmol/L Potassium (3.5-5.1) mmol/L Chloride (98-107) mmol/L Carbon Dioxide (21-32) mmol/L Anion Gap (10-20) mmol/L BUN (7-18) mg/dL Creatinine (0.70-1.30) mg/dL Est Cr Clr Drug Dosing Estimated GFR (MDRD) Glucose (74-106) mg/dL Lactic Acid 1.8 (0.4-2.0) mmol/L Calcium (8.5-10.1) mg/dL Corrected Calcium (8.5-10.1) mg/dL Magnesium (1.8-2.4) mg/dL Total Bilirubin (0.2-1.0) mg/dL AST (15-37) U/L ALT (16-63) U/L Alkaline Phosphatase (46-116) U/L Troponin I < 0.040 (<=0.056) ng/mL C-Reactive Protein (<=0.9) mg/dL Total Protein (6.4-8.2) g/dL Albumin (3.4-5.0) g/dL Globulin Albumin/Globulin Ratio Urine Color Brown H (YELLOW) Urine Appearance Turbid H (CLEAR) Urine pH 5.5 (5.0-8.0) Ur Specific [place] 1.025 Urine Protein 100 H (NEGATIVE) mg/dL Urine Glucose (UA) Negative (NEGATIVE) mg/dL Urine Ketones Trace H (NEGATIVE) mg/dL Urine Occult Blood Large H (NEGATIVE) Urine Nitrite Negative (NEGATIVE) Urine Bilirubin Small H (NEGATIVE) Urine Urobilinogen 1.0 (0.2) EU/dL Ur Leukocyte Esterase Moderate H (NEGATIVE) Meds: Medications Generic Name Dose Route Start Last Admin Trade Name Freq PRN Reason Stop Dose Admin Sodium Chloride 1,000 mls @ 1,000 mls/hr 09/26/19 14:22 09/26/19 14:32 Normal Saline IV 09/26/19 15:21 1,000 mls/hr .BOLUS ONE Administration Sodium Chloride 10 ml 09/26/19 13:04 Saline Flush FLUSH ASDIRECTED PRN Keep Vein Open Discontinued Medications Generic Name Dose Route Start Last Admin Trade Name Freq PRN Reason Stop Dose Admin Hydromorphone HCl 1 mg 09/26/19 13:06 09/26/19 13:18 Dilaudid IVPUSH 09/26/19 13:07 1 mg ONETIME ONE Administration Sodium Chloride 1,000 mls @ 1,000 mls/hr 09/26/19 13:05 09/26/19 13:12 Normal Saline IV 09/26/19 14:04 1,000 mls/hr .BOLUS ONE Administration Ondansetron HCl 4 mg 09/26/19 13:05 09/26/19 13:14 Zofran IVPUSH 09/26/19 13:06 4 mg ONETIME ONE Administration Departure - Departure Time of Disposition: 15:15 Disposition: Refer to Observation Clinical Impression: Dehydration, Ileus - Discharge Information Forms: ED Department Discharge Sepsis Event Note - Evaluation Sepsis Screening Result: No Definite Risk - Focused Exam Vital Signs: Vital Signs Temp Pulse Resp BP Pulse Ox 09/26/19 12:50 37.2 C 84 18 165/86 H 96 Date Exam was Performed: 09/26/19 Time Exam was Performed: 15:01 - Problem List Review Problem List Initiated/Reviewed/Updated: Yes - My Orders Last 24 Hours: My Active Orders 09/26/19 13:04 Sodium Chloride 0.9% [Saline Flush] 10 ml FLUSH ASDIRECTED PRN Peripheral IV Insertion Adult [OM.PC] Routine 09/26/19 13:17 EKG Documentation Completion [RC] STAT 09/26/19 14:15 Abdomen 2V AP Flat Upright [CR] Stat Abdomen 2V AP Flat Upright [CR] Stat 09/26/19 14:22 Sodium Chloride 0.9% [Normal Saline] 1,000 ml IV .BOLUS 09/26/19 14:41 CULTURE URINE [RM] Stat UA W/MICROSCOPIC [URIN] Stat 09/26/19 14:58 Patient Status [ADT] Routine 09/26/19 15:00 cefTRIAXone [Rocephin] 1 gm IVPUSH STAT ONE - Assessment/Plan Admission H&P: Please use this note as an admission H&P Last 24 Hours: My Active Orders 09/26/19 13:04 Sodium Chloride 0.9% [Saline Flush] 10 ml FLUSH ASDIRECTED PRN Peripheral IV Insertion Adult [OM.PC] Routine 09/26/19 13:17 EKG Documentation Completion [RC] STAT 09/26/19 14:15 Abdomen 2V AP Flat Upright [CR] Stat Abdomen 2V AP Flat Upright [CR] Stat 09/26/19 14:22 Sodium Chloride 0.9% [Normal Saline] 1,000 ml IV .BOLUS 09/26/19 14:41 CULTURE URINE [RM] Stat UA W/MICROSCOPIC [URIN] Stat 09/26/19 14:58 Patient Status [ADT] Routine 09/26/19 15:00 cefTRIAXone [Rocephin] 1 gm IVPUSH STAT ONE Plan: Pt. was feeling much better after IV fluids, zofran, and dilaudid. His creatnine was up to 1.8 (previously had been back within normal limits on discharge from [facility]) and his urine is very concentrated. He would benefit from admission and continued IV fluids in the floor. At this point, we will admit him observation. He is a code 1. Will continue crystalloids and IV zofran and reglan as needed for nausea/vomiting. His flat and upright abdominal radiographs do not reveal any obvious obstruction but he does have a large amount of retained stool. There are no air/fluid levels. Will start a bowel regimen. He did have large LE in his urine and has not been able to take his antibiotics so was given a gram of rocephin IV. All questions were answered.
[2019-09-26] MEDS ORDERED: cefTRIAXone 1 GM Vial IVPUSH ONE (15:00)
--- NOTE | 2019-09-26 15:02 | CR ---
[id number] RAD/RAD Abd Flat and Upright 2V EXAM: RAD Abd Flat and Upright 2V INDICATION: ABDOMINAL PAIN. COMPARISON: None. DISCUSSION: Unobstructed bowel gas pattern. No radiographically evident pneumoperitoneum. Moderate amount of retained stool within the colon. There is a right-sided ureteral stent IMPRESSION: Moderate amount of retained stool within the colon. No evidence of obstruction. Jaren Moran DO 09/26/19 1500 Thank you for allowing us to participate in the care of your patient.
[2019-09-26] MEDS ORDERED: Ondansetron 4 MG/2 ML SDV IVPUSH PRN (15:18)
[2019-09-26] MEDS ORDERED: HYDROmorphone 1 MG/ML Syringe IVPUSH PRN (15:18)
[2019-09-26] MEDS: Metoclopramide 10 MG/2 ML SDV IVPUSH SCH ×2 (16:10→20:37)
[2019-09-26] MEDS: Sodium Chloride 0.9% 1,000 ML IV SCH ×2 (16:11→22:41)
[2019-09-26] MEDS: Sodium Chloride 0.9% 10 ML Syringe FLUSH PRN (20:37)
[2019-09-27] MEDS: Metoclopramide 10 MG/2 ML SDV IVPUSH SCH ×2 (03:24→09:32)
[2019-09-27] MEDS: Sodium Chloride 0.9% 10 ML Syringe FLUSH PRN (03:25)
[2019-09-27] MEDS: Sodium Chloride 0.9% 1,000 ML IV SCH (05:37)
--- NOTE | 2019-09-27 09:01 | PCM.DCSUM1 ---
Discharge Summary - Hospital Course Diagnosis: Stroke: No - Discharge Data Discharge Date: 09/27/19 Discharge Disposition: Home, Self-Care 01 Condition: Good - Referral to Home Health Primary Care Physician: Kristofer Olivares MD - Discharge Diagnosis/Problem(s) (1) Acute kidney injury SNOMED Code(s): 45794784, [id number] ICD Code: N17.9 - ACUTE KIDNEY FAILURE, UNSPECIFIED Status: Acute Problem Details: Most likely due to outlet obstruction (2) Nausea and vomiting SNOMED Code(s): 69788552 ICD Code: R11.2 - NAUSEA WITH VOMITING, UNSPECIFIED Status: Acute Qualifiers: Vomiting type: unspecified Vomiting Intractability: non-intractable Qualified Code(s): R11.2 - Nausea with vomiting, unspecified (3) Ileus SNOMED Code(s): 090079495 ICD Code: K56.7 - ILEUS, UNSPECIFIED Status: Acute - Patient Instructions Diet: Usual Diet as Tolerated Activity: As Tolerated Driving: May Drive Today Showering/Bathing: May Shower Notify Provider of: Increased Pain, Nausea and/or Vomiting - Discharge Plan *PRESCRIPTION DRUG MONITORING PROGRAM REVIEWED*: Not Applicable *COPY OF PRESCRIPTION DRUG MONITORING REPORT IN PATIENT LIZZIE: Not Applicable Home Medications: Home Meds Pioglitazone HCl 30 mg PO DAILY 09/19/19 [History] Diltiazem [Cardizem CD] 120 mg PO DAILY 09/26/19 [History] Hydrocodone/Acetaminophen [Hydrocodone-Acetamin 5-325 mg] 1 tab PO Q6H PRN 09/25 [History] Sulfamethoxazole/Trimethoprim [Sulfamethoxazole-Tmp Ds Tablet] 1 tab PO BID [History] Oxygen Therapy Mode: Room Air Patient Handouts: Ileus, Dehydration, Adult, [id number], Nausea and Vomiting , Adult Forms: ED Department Discharge Referrals: Kristofer Olivares MD [Primary Care Provider] - - Discharge Summary/Plan Comment DC Time >30 min.: No - General Info Date of Service: 09/27/19 Admission Dx/Problem (Free Text: 1. dehydration 2. Ileus 3. Acute Kidney injury Subjective Update: Pt. presents to ER with complaints of nausea and vomiting yesterday after having symptoms for 2 days. Pt was recently hospitalized at [facility] from 09/19-09/21 with kidney stones. He underwent ureteroscopy, laser lithotripsy and subsequent ureteral stent which will be removed during that stay. Also during his stay at [facility], it appeared that the patient had an episode of new onset a-fib with RVR. This resolved with IV cardiazem, and he was discharged on cardiazem at home. He converted back to a NSR with cardiazem and was not anticoagulated. There was evidence of some ST strain and he did have a positive troponin which has since trended back to normal. He underwent echocardiogram which showed no acute wall motion abnormality as well as Lexiscan which was negative for obvious ischemia. He states that he has not had any episodes of chest pain, palpitations, shortness of breath since discharge. Pt. was admitted to observation late yesterday due to nausea and vomiting and having difficultly keeping fluids down. He also complained of bilious emesis. ER labs and X-rays were completed. Pt was feeling much better after pain medications and IV bolus. He was admitted to the hospital for observation for fluid rehydration and bowel rest. Over the course of the night patients states he has had no pain and has been hungry. He has tolerated ice chips without difficulty and has been ambulating without assistance with no difficulties. Patient states this am he remains hungry, passing gas, no abdominal pain, increasing in urination to every 2-3 hours with it appearing clear with no burning or hesitancy. Patient has been able to increase his diet without difficultly of abdominal pain, nausea or vomiting. Patient will be discharged home with diet and activity as tolerated, continue home medications, increase water intake, and follow up with PCP in 3-4 days for close monitoring post hospital discharge. Functional Status: Reports: Pain Controlled, Tolerating Diet, Ambulating, Urinating - Review of Systems General: Reports: No Symptoms HEENT: Reports: No Symptoms Pulmonary: Reports: No Symptoms Cardiovascular: Reports: No Symptoms Gastrointestinal: Reports: No Symptoms Genitourinary: Reports: No Symptoms Musculoskeletal: Reports: No Symptoms Skin: Reports: No Symptoms Neurological: Reports: No Symptoms Psychiatric: Reports: No Symptoms - Patient Data Vitals - Most Recent: Last Vital Signs Temp 36.3 C 09/27/19 06:00 Pulse 64 09/27/19 06:00 Resp 17 09/27/19 06:00 BP 128/63 09/27/19 06:00 Pulse Ox 96 09/27/19 06:00 Weight - Most Recent: 124.738 kg I&O - Last 24 hours: Intake & Output 09/26/19 09/27/19 09/27/19 22:59 06:59 14:59 Intake Total 1120 1100 Output Total 400 Balance 1120 700 Lab Results - Last 24 hrs: Laboratory Results - last 24 hr 09/26/19 09/26/19 09/26/19 Range/Units 13:15 13:15 13:15 WBC 8.5 (4.0-10.0) x10^3/uL RBC 5.61 (4.5-6.0) x10^6/uL Hgb 16.8 D (14.0-18.0) g/dL Hct 47.9 (40.0-52.0) % MCV 85.4 D (78.0-93.0) fL MCH 29.9 (26.0-32.0) pg MCHC 35.1 (32.0-36.0) g/dL RDW Coeff of John 12.8 (10.0-15.0) % Plt Count 146 (130-400) x10^3/uL Neut % (Auto) 77.3 (50.0-80.0) % Lymph % (Auto) 9.8 L (25.0-50.0) % [place] % (Auto) 11.0 (2.0-11.0) % Eos % (Auto) 1.3 (0.0-4.0) % Baso % (Auto) 0.6 (0.2-1.2) % PT 11.9 (10.0-12.8) SEC INR 1.0 L (2.0-3.5) Sodium 137 (136-145) mmol/L Potassium 5.0 (3.5-5.1) mmol/L Chloride 101 (98-107) mmol/L Carbon Dioxide 27 (21-32) mmol/L Anion Gap 14.0 (10-20) mmol/L BUN 31 H (7-18) mg/dL Creatinine 1.8 H (0.70-1.30) mg/dL Est Cr Clr Drug Dosing TNP Estimated GFR (MDRD) 38 Glucose 200 H (74-106) mg/dL Lactic Acid (0.4-2.0) mmol/L Calcium 10.7 H (8.5-10.1) mg/dL Corrected Calcium 11.18 H (8.5-10.1) mg/dL Magnesium 2.0 (1.8-2.4) mg/dL Total Bilirubin 1.5 H (0.2-1.0) mg/dL AST 37 (15-37) U/L ALT 71 H (16-63) U/L Alkaline Phosphatase 105 (46-116) U/L Troponin I (<=0.056) ng/mL C-Reactive Protein 1.9 H (<=0.9) mg/dL Total Protein 7.6 (6.4-8.2) g/dL Albumin 3.4 (3.4-5.0) g/dL Globulin 4.2 Albumin/Globulin Ratio 0.81 Urine Color (YELLOW) Urine Appearance (CLEAR) Urine pH (5.0-8.0) Ur Specific [place] Urine Protein (NEGATIVE) mg/dL Urine Glucose (UA) (NEGATIVE) mg/dL Urine Ketones (NEGATIVE) mg/dL Urine Occult Blood (NEGATIVE) Urine Nitrite (NEGATIVE) Urine Bilirubin (NEGATIVE) Urine Urobilinogen (0.2) EU/dL Ur Leukocyte Esterase (NEGATIVE) Urine RBC (NOT SEEN) /HPF Urine WBC (NOT SEEN) /HPF Ur Squamous Epith Cells (NEGATIVE) /HPF Amorphous Sediment Urine Bacteria (NEGATIVE) /HPF Urine Mucus (NEGATIVE) /LPF 09/26/19 09/26/19 09/26/19 Range/Units 13:15 13:15 14:41 WBC (4.0-10.0) x10^3/uL RBC (4.5-6.0) x10^6/uL Hgb (14.0-18.0) g/dL Hct (40.0-52.0) % MCV (78.0-93.0) fL MCH (26.0-32.0) pg MCHC (32.0-36.0) g/dL RDW Coeff of John (10.0-15.0) % Plt Count (130-400) x10^3/uL Neut % (Auto) (50.0-80.0) % Lymph % (Auto) (25.0-50.0) % [place] % (Auto) (2.0-11.0) % Eos % (Auto) (0.0-4.0) % Baso % (Auto) (0.2-1.2) % PT (10.0-12.8) SEC INR (2.0-3.5) Sodium (136-145) mmol/L Potassium (3.5-5.1) mmol/L Chloride (98-107) mmol/L Carbon Dioxide (21-32) mmol/L Anion Gap (10-20) mmol/L BUN (7-18) mg/dL Creatinine (0.70-1.30) mg/dL Est Cr Clr Drug Dosing Estimated GFR (MDRD) Glucose (74-106) mg/dL Lactic Acid 1.8 (0.4-2.0) mmol/L Calcium (8.5-10.1) mg/dL Corrected Calcium (8.5-10.1) mg/dL Magnesium (1.8-2.4) mg/dL Total Bilirubin (0.2-1.0) mg/dL AST (15-37) U/L ALT (16-63) U/L Alkaline Phosphatase (46-116) U/L Troponin I < 0.040 (<=0.056) ng/mL C-Reactive Protein (<=0.9) mg/dL Total Protein (6.4-8.2) g/dL Albumin (3.4-5.0) g/dL Globulin Albumin/Globulin Ratio Urine Color Brown H (YELLOW) Urine Appearance Turbid H (CLEAR) Urine pH 5.5 (5.0-8.0) Ur Specific [place] 1.025 Urine Protein 100 H (NEGATIVE) mg/dL Urine Glucose (UA) Negative (NEGATIVE) mg/dL Urine Ketones Trace H (NEGATIVE) mg/dL Urine Occult Blood Large H (NEGATIVE) Urine Nitrite Negative (NEGATIVE) Urine Bilirubin Small H (NEGATIVE) Urine Urobilinogen 1.0 (0.2) EU/dL Ur Leukocyte Esterase Moderate H (NEGATIVE) Urine RBC Packed H (NOT SEEN) /HPF Urine WBC 10-20 H (NOT SEEN) /HPF Ur Squamous Epith Cells Occasional H (NEGATIVE) /HPF Amorphous Sediment Few Urine Bacteria Few H (NEGATIVE) /HPF Urine Mucus Few H (NEGATIVE) /LPF REN[place]TA Results - Last 24 hrs: Microbiology 09/26/19 14:41 Urine Culture - Preliminary Urine, Clean Catch NO GROWTH AFTER 1 DAY Med Orders - Current: Current Medications Hydromorphone HCl (Dilaudid) 1 mg IVPUSH Q4H PRN PRN Reason: Pain Sodium Chloride (Normal Saline) 1,000 mls @ 150 mls/hr IV ASDIRECTED MARY Last Admin: 09/27/19 05:37 Dose: 150 mls/hr Metoclopramide HCl (Reglan) 5 mg IVPUSH Q6H [facility] Last Admin: 09/27/19 03:24 Dose: 5 mg Ondansetron HCl (Zofran) 4 mg IVPUSH Q8H PRN PRN Reason: Nausea Sodium Chloride (Saline Flush) 10 ml FLUSH ASDIRECTED PRN PRN Reason: Keep Vein Open Last Admin: 09/27/19 03:25 Dose: 10 ml Discontinued Medications Ceftriaxone Sodium (Rocephin) 1 gm IVPUSH STAT ONE Stop: 09/26/19 15:01 Last Admin: 09/26/19 15:13 Dose: 1 gm Hydromorphone HCl (Dilaudid) 1 mg IVPUSH ONETIME ONE Stop: 09/26/19 13:07 Last Admin: 09/26/19 13:18 Dose: 1 mg Sodium Chloride (Normal Saline) 1,000 mls @ 1,000 mls/hr IV .BOLUS ONE Stop: 09/26/19 14:04 Last Admin: 09/26/19 13:12 Dose: 1,000 mls/hr Sodium Chloride (Normal Saline) 1,000 mls @ 1,000 mls/hr IV .BOLUS ONE Stop: 09/26/19 15:21 Last Admin: 09/26/19 14:32 Dose: 1,000 mls/hr Ondansetron HCl (Zofran) 4 mg IVPUSH ONETIME ONE Stop: 09/26/19 13:06 Last Admin: 09/26/19 13:14 Dose: 4 mg - Exam General: Reports: Alert, Oriented HEENT: Reports: Pupils Equal, Pupils Reactive, EOMI, Mucous Membr. Moist/[place] Neck: Reports: Supple Lungs: Reports: Clear to Auscultation, Normal Respiratory Effort Cardiovascular: Reports: Regular Rate, Regular Rhythm GI/Abdominal Exam: Normal Bowel Sounds, Soft, Non-Tender, No Organomegaly, No Distention, No Abnormal Bruit, No Mass Back Exam: Reports: Normal Inspection, Full Range of Motion Extremities: Normal Inspection, Normal Range of Motion, Non-Tender, No Pedal Edema, Normal Capillary Refill Skin: Reports: Warm, Dry, Intact Neurological: Reports: No New Focal Deficit Psy/Mental Status: Reports: Alert, Normal Affect, Normal Mood
[2019-09-27 09:23] LABS: ANION GAP 12.2 mmol/L (10-20)
== END 2019-09-27 11:45 | disposition home or self-care (01) ==
LOC: VM.ED 12:50 → VM.MS 15:11
PROVIDERS: ADMIT Physician Assistant; ATTEND Physician Assistant
DX: E86.0 Dehydration (principal); K56.7 Ileus, unspecified; N17.9 Acute kidney failure, unspecified; Z87.442 Personal history of urinary calculi; Z79.899 Other long term (current) drug therapy; Z98.890 Other specified postprocedural states
CPT/HCPCS: 36415; 74019; 80053; 81001; 83605; 83735; 84484; 85025; 85610; 86140; 87086; 93005; 96361; 96374; 96375; 96376; 99217; 99220; 99285-25; G0378; J0696; J1170; J2405; J2765; J7030

== ENCOUNTER 2020-10-27 15:06 | Inpatient (IN) | payer MEDICARE, BC ==
[2020-10-27] MEDS ORDERED: Ondansetron 4 MG/2 ML SDV IV ONE (15:47)
[2020-10-27] MEDS ORDERED: Lactated Ringers 1,000 ML IV ONE (15:47)
--- NOTE | 2020-10-27 16:09 | PCM.EKG ---
#1 Interpretation EKG Date: 10/27/20 Time: 15:52 Rhythm: NSR Rate (Beats/Min): 85 [place]: Normal P-Wave: Present QRS: Normal ST-T: Normal QT: Normal
--- NOTE | 2020-10-27 16:09 | EDM.PDOC ---
ED HPI GENERAL MEDICAL PROBLEM - General Chief Complaint: General Time Seen by Provider: 10/27/20 15:30 Source of Information: Reports: Patient History Limitations: Reports: No Limitations - History of Present Illness INITIAL COMMENTS - FREE TEXT/NARRATIVE: Patient comes emergency department today with complaints of nausea vomiting coughing. This patient for the past 10 days has been severely nauseated and vomiting multiple times at home. He has been coughing consistently throughout the day. He has no chest pain. He does complain a little bit of shortness of breath. No fever no chills. He does complain of generalized weakness as he has not been able to keep anything down. He has no focal neurological deficits. He has had decreased urinary output. No hematuria dysuria or urinary frequency. No black tarry stools or diarrhea. He does complain of some abdominal discomfort but nothing for pain. No flank pain. No Covid exposure he is aware of. He did not receive his vaccine. He does have a history of cirrhosis he relates that has not been much evaluated. He is very tired and fatigued and does not have much energy. Middle Back Pain Score (Numeric/FACES): 2 - Related Data Allergies Allergy/AdvReac Type Severity Reaction Status Date / Time No Known Drug Allergies Allergy Other Verified 10/27/20 15:15 Home Meds: Home Meds Pioglitazone HCl 30 mg PO DAILY 09/19/19 [History] Diltiazem [Cardizem CD] 120 mg PO DAILY 09/26/19 [History] Hydrocodone/Acetaminophen [Hydrocodone-Acetamin 5-325 mg] 1 tab PO Q6H PRN 09/26/19 [History] Sulfamethoxazole/Trimethoprim [Sulfamethoxazole-Tmp Ds Tablet] 1 tab PO BID 09/26/19 [History] Past Medical History HEENT History: Reports: None Cardiovascular History: Reports: Afib Respiratory History: Reports: None Gastrointestinal History: Reports: Cirrhosis Genitourinary History: Reports: Hydronephrosis, Other (See Below) Other Genitourinary History: kidney stone Musculoskeletal History: Reports: Osteoarthritis Neurological History: Reports: None Psychiatric History: Reports: None Other Endocrine/Metabolic History: ?diabetes. Pt is supposed to be on Metformin however has not been taking it. Immunologic History: Reports: None Oncologic (Cancer) History: Reports: None Dermatologic History: Reports: None - Infectious Disease History Infectious Disease History: Reports: Chicken Pox, Measles - Past Surgical History Head Surgeries/Procedures: Reports: None Cardiovascular Surgical History: Reports: None Respiratory Surgical History: Reports: None Other Male Surgeries/Procedures: nephrolithiasis Musculoskeletal Surgical History: Reports: Knee Replacement Social & Family History - Family History Family Medical History: No Pertinent Family History - Tobacco Use Tobacco Use Status *Q: Never Tobacco User - Caffeine Use Caffeine Use: Reports: None ED ROS GENERAL - Review of Systems Review Of Systems: Comprehensive ROS is negative, except as noted in HPI. ED EXAM, GENERAL - Physical Exam Exam: See Below Exam Limited By: No Limitations General Appearance: Alert, WD/WN, No Apparent Distress Eye Exam: Bilateral Eye: EOMI Ears: Normal External Exam Nose: Normal Inspection Throat/Mouth: Normal Inspection Head: Atraumatic, Normocephalic Neck: Normal Inspection, Supple, Non-Tender Respiratory/Chest: No Respiratory Distress, No Accessory Muscle Use, Chest Non- Tender, Crackles (He does have bilateral inspiratory crackles bilaterally.), Wheezing (Faint expiratory wheezing). No: Rhonchi, Stridor Cardiovascular: Normal Peripheral Pulses, Regular Rate, Rhythm, No Murmur Peripheral Pulses: 2+: Radial (L), Radial (R), Posterior Tibial (L), Posterior Tibial (R), Dorsalis Pedis (L), Dorsalis Pedis (R) GI/Abdominal: Normal Bowel Sounds, Soft, No Abnormal Bruit, Pelvis Stable, Tender (He has some generalized tenderness in the epigastric region. Negative McBurney's point. No distention. No guarding or rebound no rigidity) (Male) Exam: Deferred Rectal (Males) Exam: Deferred Back Exam: Normal Inspection, Full Range of Motion Extremities: Normal Inspection, Normal Range of Motion, No Pedal Edema, Normal Capillary Refill Neurological: Alert, Oriented, CN II-XII Intact, Normal Cognition, No Motor/Sensory Deficits Psychiatric: Normal Affect, Normal Mood Skin Exam: Warm, Dry, Intact, Normal Color Lymphatic: No Adenopathy Course - Vital Signs Last Recorded V/S: Last Vital Signs Temp 97.8 F 10/28/20 18:00 Pulse 69 10/28/20 18:00 Resp 20 10/28/20 18:00 BP 131/76 10/28/20 18:00 Pulse Ox 88 L 10/28/20 18:00 - Orders/Labs/Meds Orders: Medication Orders Cyclobenzaprine HCl (Cyclobenzaprine 10 Mg Tab) 5 mg PO Q8H PRN PRN Reason: Pain Last Admin: 10/28/20 09:49 Dose: 5 mg Documented by: DEANNE Dexamethasone 2 mg/ (Dexamethasone 4 mg) 6 mg PO DAILY [facility] Last Admin: 10/28/20 07:29 Dose: 6 mg Documented by: DEANNE Enoxaparin Sodium (Enoxaparin 40 Mg/0.4 Ml Syringe) 40 mg SUBCUT Q24H [facility] Last Admin: 10/28/20 09:37 Dose: 40 mg Documented by: DEANNE Ondansetron HCl (Ondansetron 4 Mg/2 Ml Sdv) 4 mg IVPUSH Q8H PRN PRN Reason: Nausea Sodium Chloride (Sodium Chloride 0.9% 10 Ml Syringe) 10 ml FLUSH ASDIRECTED PRN PRN Reason: Keep Vein Open Last Admin: 10/28/20 20:21 Dose: 10 ml Documented by: TOI Labs: Laboratory Tests 10/27/20 10/27/20 10/27/20 Range/Units 15:54 15:54 15:54 WBC 2.9 L (4.0-10.0) x10^3/uL RBC 5.30 (4.5-6.0) x10^6/uL Hgb 16.0 (14.0-18.0) g/dL Hct 46.0 (40.0-52.0) % MCV 86.8 (78.0-93.0) fL MCH 30.2 (26.0-32.0) pg MCHC 34.8 (32.0-36.0) g/dL RDW Coeff of John 13.8 (10.0-15.0) % Plt Count 100 L (130-400) x10^3/uL Neut % (Auto) 76.1 (50.0-80.0) % Lymph % (Auto) 11.8 L (25.0-50.0) % [place] % (Auto) 11.8 H (2.0-11.0) % Eos % (Auto) 0.0 (0.0-4.0) % Baso % (Auto) 0.3 (0.2-1.2) % Sodium 136 (136-145) mmol/L Potassium 4.5 (3.5-5.1) mmol/L Chloride 101 (98-107) mmol/L Carbon Dioxide 26 (21-32) mmol/L Anion Gap 13.5 (5-15) mmol/L BUN 19 H (7-18) mg/dL Creatinine 1.4 H (0.70-1.30) mg/dL Est Cr Clr Drug Dosing TNP Estimated GFR (MDRD) 51 Glucose 270 H (70-99) mg/dL Lactic Acid (0.4-2.0) mmol/L Calcium 9.3 (8.5-10.1) mg/dL Corrected Calcium 10.3 H (8.5-10.1) mg/dL Magnesium 1.9 (1.8-2.4) mg/dL Ferritin (26-388) ng/mL Total Bilirubin 1.1 H (0.2-1.0) mg/dL AST 87 H (15-37) U/L ALT 88 H (16-63) U/L Alkaline Phosphatase 114 (46-116) U/L Lactate Dehydrogenase (85-227) U/L Troponin I High Sens 7 (<=76) ng/L Total Protein 7.0 (6.4-8.2) g/dL Albumin 2.8 L (3.4-5.0) g/dL Globulin 4.2 Albumin/Globulin Ratio 0.67 Lipase 3112 H (73-393) U/L Ethyl Alcohol (0-3) mg/dL SARS CoV-2 RNA Rapid ROCHELLE (NEGATIVE) 10/27/20 10/27/20 10/27/20 Range/Units 15:54 15:54 15:54 WBC (4.0-10.0) x10^3/uL RBC (4.5-6.0) x10^6/uL Hgb (14.0-18.0) g/dL Hct (40.0-52.0) % MCV (78.0-93.0) fL MCH (26.0-32.0) pg MCHC (32.0-36.0) g/dL RDW Coeff of John (10.0-15.0) % Plt Count (130-400) x10^3/uL Neut % (Auto) (50.0-80.0) % Lymph % (Auto) (25.0-50.0) % [place] % (Auto) (2.0-11.0) % Eos % (Auto) (0.0-4.0) % Baso % (Auto) (0.2-1.2) % Sodium (136-145) mmol/L Potassium (3.5-5.1) mmol/L Chloride (98-107) mmol/L Carbon Dioxide (21-32) mmol/L Anion Gap (5-15) mmol/L BUN (7-18) mg/dL Creatinine (0.70-1.30) mg/dL Est Cr Clr Drug Dosing Estimated GFR (MDRD) Glucose (70-99) mg/dL Lactic Acid (0.4-2.0) mmol/L Calcium (8.5-10.1) mg/dL Corrected Calcium (8.5-10.1) mg/dL Magnesium (1.8-2.4) mg/dL Ferritin 798 H (26-388) ng/mL Total Bilirubin (0.2-1.0) mg/dL AST (15-37) U/L ALT (16-63) U/L Alkaline Phosphatase (46-116) U/L Lactate Dehydrogenase 350 H (85-227) U/L Troponin I High Sens (<=76) ng/L Total Protein (6.4-8.2) g/dL Albumin (3.4-5.0) g/dL Globulin Albumin/Globulin Ratio Lipase (73-393) U/L Ethyl Alcohol < 3 (0-3) mg/dL SARS CoV-2 RNA Rapid ROCHELLE (NEGATIVE) 10/27/20 10/27/20 Range/Units 15:54 16:59 WBC (4.0-10.0) x10^3/uL RBC (4.5-6.0) x10^6/uL Hgb (14.0-18.0) g/dL Hct (40.0-52.0) % MCV (78.0-93.0) fL MCH (26.0-32.0) pg MCHC (32.0-36.0) g/dL RDW Coeff of John (10.0-15.0) % Plt Count (130-400) x10^3/uL Neut % (Auto) (50.0-80.0) % Lymph % (Auto) (25.0-50.0) % [place] % (Auto) (2.0-11.0) % Eos % (Auto) (0.0-4.0) % Baso % (Auto) (0.2-1.2) % Sodium (136-145) mmol/L Potassium (3.5-5.1) mmol/L Chloride (98-107) mmol/L Carbon Dioxide (21-32) mmol/L Anion Gap (5-15) mmol/L BUN (7-18) mg/dL Creatinine (0.70-1.30) mg/dL Est Cr Clr Drug Dosing Estimated GFR (MDRD) Glucose (70-99) mg/dL Lactic Acid 2.7 H* (0.4-2.0) mmol/L Calcium (8.5-10.1) mg/dL Corrected Calcium (8.5-10.1) mg/dL Magnesium (1.8-2.4) mg/dL Ferritin (26-388) ng/mL Total Bilirubin (0.2-1.0) mg/dL AST (15-37) U/L ALT (16-63) U/L Alkaline Phosphatase (46-116) U/L Lactate Dehydrogenase (85-227) U/L Troponin I High Sens (<=76) ng/L Total Protein (6.4-8.2) g/dL Albumin (3.4-5.0) g/dL Globulin Albumin/Globulin Ratio Lipase (73-393) U/L Ethyl Alcohol (0-3) mg/dL SARS CoV-2 RNA Rapid ROCHELLE Positive H (NEGATIVE) Meds: Medications Generic Name Dose Route Start Last Admin Trade Name Freq PRN Reason Stop Dose Admin Cyclobenzaprine HCl 5 mg 10/28/20 08:23 10/28/20 09:49 Cyclobenzaprine 10 Mg Tab PO 5 mg Q8H PRN Administration Pain Dexamethasone 2 mg/ 6 mg 10/28/20 08:00 10/28/20 07:29 Dexamethasone 4 mg PO 6 mg DAILY MARY Administration Enoxaparin Sodium 40 mg 10/28/20 08:45 10/28/20 09:37 Enoxaparin 40 Mg/0.4 Ml Syringe SUBCUT 40 mg Q24H MARY Administration Ondansetron HCl 4 mg 10/27/20 21:55 Ondansetron 4 Mg/2 Ml Sdv IVPUSH Q8H PRN Nausea Sodium Chloride 10 ml 10/27/20 15:46 10/28/20 20:21 Sodium Chloride 0.9% 10 Ml Syringe FLUSH 10 ml ASDIRECTED PRN Administration Keep Vein Open Discontinued Medications Generic Name Dose Route Start Last Admin Trade Name Freq PRN Reason Stop Dose Admin Dexamethasone 2 mg/ 6 mg 10/27/20 19:33 10/28/20 00:16 Dexamethasone 4 mg PO 10/27/20 19:34 Not Given ONETIME ONE Lactated Ringer's 1,000 mls @ 999 mls/hr 10/27/20 15:47 10/27/20 16:02 Ringers, Lactated IV 10/27/20 16:47 999 mls/hr ONETIME ONE Administration Lactated Ringer's 1,000 mls @ 250 mls/hr 10/27/20 17:30 10/27/20 17:21 Ringers, Lactated IV 250 mls/hr ASDIRECTED MARY Administration Remdesivir 200 mg/ Sodium 250 mls @ 250 mls/hr 10/28/20 08:47 10/28/20 09:36 Chloride IV 10/28/20 09:46 250 mls/hr ONETIME ONE Administration Iopamidol 100 ml 10/27/20 19:54 10/27/20 19:54 Iopamidol 612 Mg/Ml 100 Ml Bottle IVPUSH 10/27/20 19:55 100 ml ONETIME ONE Administration Ondansetron HCl 4 mg 10/27/20 15:47 10/27/20 16:04 Ondansetron 4 Mg/2 Ml Sdv IV 10/27/20 15:48 4 mg ONETIME ONE Administration - Radiology Interpretation Free Text/Narrative:: Chest x-ray per radiology shows bilateral patchy infiltrates most likely consistent with COVID-[address] abdomen pelvis with contrast per radiology shows acute interstitial pancreatitis without complication. Development of multifocal infiltrates and groundglass opacities in the lung bases. These findings are subjective of infection including Covid pneumonia. - Re-Assessments/Exams Free Text/Narrative Re-Assessment/Exam: Oxygen saturation on room air is about 89% when he came back from the bathroom. He was placed on 2 L of oxygen. IV was established labs are drawn. He was given a liter of LR wide open. Zofran for nausea. He has a CBC with a WBC 2.9, hemoglobin 16.0, platelet count 100. CMP with a creatinine of 1.4 and a BUN of 19 which is up from his baseline of 1, glucose 270, lactic acid 2.7. Magnesium 1.7 T bili 1.1, AST 87, ALT 88. These are both to his baseline when looking back on his labs. His troponin is negative at 7. His lipase is quite elevated at 3112. His alcohol is negative. His Covid is positive. His lactate dehydrogenase is 350 and his ferritin is 798. The patient was given dexamethasone orally as well in the emergency department. I explained to the patient that he clearly has Covid not only by his chest x-ray but also has positive test. I do not feel that we will be able to treat him with remdesivir as the symptoms have been going on for 10 days and also he has transaminitis. We will give him some dexamethasone. Supplemental oxygenation. I called and spoke with Dr. Chamberlain at [facility] in [place] with the concerns of COVID and pancreatitis and he refused the patient in transfer as he feels that would not have anything more to offer the patient than we can do here. I called and spoke with Dr. Urbina who was industrial controls technician for the hospital here in [place]. HPI ER COURSE findings and concerns were relayed to her she accepted the patient here in [place] for further care and management. The patient was comfortable with this plan and his question answered. Departure - Departure Time of Disposition: 20:00 Disposition: Admitted As Inpatient 68 Clinical Impression: Pneumonia due to COVID-19 virus, Thrombocytopenia, Transaminitis, Acute kidney injury Pancreatitis Qualifiers: Chronicity: acute Pancreatitis type: unspecified pancreatitis type Acute pancreatitis complication: unspecified Qualified Code(s): K85.90 - Acute pancrea titis without necrosis or infection, unspecified Leukopenia Qualifiers: Leukopenia type: unspecified Qualified Code(s): D72.819 - Decreased white blood cell count, unspecified - Discharge Information *PRESCRIPTION DRUG MONITORING PROGRAM REVIEWED*: Not Applicable *COPY OF PRESCRIPTION DRUG MONITORING REPORT IN PATIENT LIZZIE: Not Applicable Sepsis Event Note (ED) - Evaluation Sepsis Screening Result: No Definite Risk
[2020-10-27 16:28] LABS: ANION GAP 13.5 mmol/L (5-15); CHLORIDE,CL 101 mmol/L (98-107); SODIUM,NA 136 mmol/L (136-145)
[2020-10-27] MEDS ORDERED: Lactated Ringers 1,000 ML IV SCH (17:30)
--- NOTE | 2020-10-27 19:31 | CT ---
[id number] CT/CT Abdomen Pelvis W IV EXAM: ABDOMEN AND PELVIS CT WITH CONTRAST INDICATION: NAUSEA AND VOMITTING,ELEVATED LIVER ENZYMES AND LIPASE. COMPARISON: September 20, 2019. DISCUSSION: Patchy multifocal consolidation and groundglass opacities in the lung bases are new relative to the comparison study and are likely infectious or inflammatory. Differential considerations would include COVID 19 pneumonia. There is hepatic steatosis. The liver has a nodular contour compatible with cirrhosis. Upper abdominal varices and mild splenomegaly compatible with portal hypertension. Mild edema within and surrounding the pancreas compatible with acute pancreatitis. No fluid collection, necrosis or other evident complication. 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 The right kidney contains a 33 mm simple appearing cyst and scattered small nonobstructing calculi the largest of which is about 3 mm in diameter. There is a small calculus in the right ureter without current evidence of hydronephrosis. A larger calculus previously in the right ureter has resolved as has right urinary collecting system dilation. Mild nonspecific jim hepatis adenopathy is similar to the prior study. The right adrenal gland, left kidney, small bowel, large bowel are unremarkable. Degenerative changes in the spine. IMPRESSION: 1. Acute interstitial pancreatitis without evident complication. 2. Development of multifocal infiltrates and ground glass opacities in the lung bases. These findings are suggestive of infection including COVID pneumonia. Dano Musa MD 10/27/201929 Thank you for allowing us to participate in the care of your patient.
[2020-10-27] MEDS ORDERED: dexAMETHasone 2 MG, dexAMETHasone 4 MG PO ONE ×2 (19:33)
[2020-10-27] MEDS ORDERED: Iopamidol 612 MG/ML 100 ML Bottle IVPUSH ONE (19:54)
--- NOTE | 2020-10-27 19:59 | CR ---
[id number] RAD/RAD Chest PA or AP 1V EXAM: FRONTAL CHEST INDICATION: SOB, HYPOXIA COMPARISON: None. DISCUSSION: Moderate patchy bilateral infiltrates are most consistent with infection including COVID 19 pneumonia. Normal heart size. No effusions. Mild tortuosity of the thoracic aorta. IMPRESSION: 1. Moderate patchy bilateral infiltrates. Dano Musa MD 10/27/[id number] Thank you for allowing us to participate in the care of your patient.
[2020-10-27] MEDS ORDERED: Ondansetron 4 MG/2 ML SDV IVPUSH PRN (21:55)
--- NOTE | 2020-10-27 22:12 | PCM.HP.2 ---
H&P History of Present Illness - General Date of Service: 10/27/20 Admit Problem/Dx: Admission Diagnosis/Problem Admission Diagnosis/Problem Pancreatitis Source of Information: Patient History Limitations: Reports: No Limitations - History of Present Illness Initial Comments - Free Text/Narative: Mr. Allan is a 69 yo male with PMH of DM, nephrolithiasis, obesity, cirrhosis, and a-fib who presented to the ER today for evaluation of persistent nausea and vomiting x 10 days. He also has been having lower back pain, cough (mainly when he moves around), and sore throat. Has been getting weaker over time due to not really being able to keep anything down as far as food. He has been drinking a lot of water and is voiding normally. He has not had any fever or chills. No myalgias other than his lower back. He has had no chest pain or shortness of breath. He has not had any abdominal pain. He has not had any known ill contacts. He has not been vaccinated for COVID nor had COVID prior to this. Middle Back Pain Score (Numeric/FACES): 2 - Related Data Allergies/Adverse Reactions: Allergies Allergy/AdvReac Type Severity Reaction Status Date / Time No Known Drug Allergies Allergy Other Verified 10/27/20 15:15 Home Medications: Home Meds Pioglitazone HCl 30 mg PO DAILY 09/19/19 [History] Diltiazem [Cardizem CD] 120 mg PO DAILY 09/26/19 [History] Hydrocodone/Acetaminophen [Hydrocodone-Acetamin 5-325 mg] 1 tab PO Q6H PRN 09/26/19 [History] Sulfamethoxazole/Trimethoprim [Sulfamethoxazole-Tmp Ds Tablet] 1 tab PO BID 09/26/19 [History] Past Medical History HEENT History: Reports: None Cardiovascular History: Reports: Afib Respiratory History: Reports: None Gastrointestinal History: Reports: Cirrhosis Genitourinary History: Reports: Hydronephrosis, Other (See Below) Other Genitourinary History: kidney stone Musculoskeletal History: Reports: Osteoarthritis Neurological History: Reports: None Psychiatric History: Reports: None Endocrine/Metabolic History: Reports: Diabetes, Type II Immunologic History: Reports: None Oncologic (Cancer) History: Reports: None Dermatologic History: Reports: None - Infectious Disease History Infectious Disease History: Reports: Chicken Pox, Measles, Novel Coronavirus - Past Surgical History Head Surgeries/Procedures: Reports: None Cardiovascular Surgical History: Reports: None Respiratory Surgical History: Reports: None GI Surgical History: Reports: Colonoscopy Male Surgical History: Reports: Lithotripsy ([facility]) Other Male Surgeries/Procedures: nephrolithiasis Musculoskeletal Surgical History: Reports: Knee Replacement Social & Family History - Family History Family Medical History: No Pertinent Family History - Tobacco Use Tobacco Use Status *Q: Never Tobacco User - Caffeine Use Caffeine Use: Reports: None - Alcohol Use Alcohol Use History: Yes Alcohol Use in Last Twelve Months: No - Recreational Drug Use Recreational Drug Use: No - Living Situation & Occupation Living situation: Reports: , with Significant Other Occupation: Retired (instrument repairer and keys) H&P Review of Systems - Review of Systems: Review Of Systems: See Below General: Reports: No Symptoms HEENT: Reports: No Symptoms Pulmonary: Reports: Cough. Denies: Shortness of Breath Cardiovascular: Reports: No Symptoms Gastrointestinal: Reports: Nausea, Vomiting. Denies: Abdominal Pain, Diarrhea Genitourinary: Reports: No Symptoms Musculoskeletal: Reports: Back Pain. Denies: Arm Pain, Muscle Pain Skin: Reports: No Symptoms Psychiatric: Reports: No Symptoms Neurological: Reports: No Symptoms Exam - Exam Exam: See Below - Vital Signs Vital Signs: Last Vital Signs Temp 36.7 C 10/27/20 15:08 Pulse 89 10/27/20 15:08 Resp 20 10/27/20 15:08 BP 108/69 10/27/20 15:08 Pulse Ox 93 L 10/27/20 15:08 - Exam General: Alert, Oriented, Cooperative HEENT: Conjunctiva Clear, Mucosa Moist & [place], Posterior Pharynx Clear Neck: Supple, Trachea Midline. No: Lymphadenopathy, Thyromegaly Lungs: Normal Respiratory Effort, Crackles (diffusely) Cardiovascular: Regular Rate, Regular Rhythm, Normal S1, Normal S2 GI/Abdominal Exam: Normal Bowel Sounds, Soft, Non-Tender, No Organomegaly, No Distention, No Mass Extremities: Normal Inspection, Non-Tender, No Pedal Edema, Normal Capillary Refill Peripheral Pulses: 2+: Radial (L), Radial (R) Skin: Warm, Dry, Intact - Patient Data Lab Results Last 24 hrs: Laboratory Results - last 24 hr 10/27/20 10/27/20 10/27/20 Range/Units 15:54 15:54 15:54 WBC 2.9 L (4.0-10.0) x10^3/uL RBC 5.30 (4.5-6.0) x10^6/uL Hgb 16.0 (14.0-18.0) g/dL Hct 46.0 (40.0-52.0) % MCV 86.8 (78.0-93.0) fL MCH 30.2 (26.0-32.0) pg MCHC 34.8 (32.0-36.0) g/dL RDW Coeff of John 13.8 (10.0-15.0) % Plt Count 100 L (130-400) x10^3/uL Neut % (Auto) 76.1 (50.0-80.0) % Lymph % (Auto) 11.8 L (25.0-50.0) % Collier % (Auto) 11.8 H (2.0-11.0) % Eos % (Auto) 0.0 (0.0-4.0) % Baso % (Auto) 0.3 (0.2-1.2) % Sodium 136 (136-145) mmol/L Potassium 4.5 (3.5-5.1) mmol/L Chloride 101 (98-107) mmol/L Carbon Dioxide 26 (21-32) mmol/L Anion Gap 13.5 (5-15) mmol/L BUN 19 H (7-18) mg/dL Creatinine 1.4 H (0.70-1.30) mg/dL Est Cr Clr Drug Dosing TNP Estimated GFR (MDRD) 51 Glucose 270 H (70-99) mg/dL Lactic Acid (0.4-2.0) mmol/L Calcium 9.3 (8.5-10.1) mg/dL Corrected Calcium 10.3 H (8.5-10.1) mg/dL Magnesium 1.9 (1.8-2.4) mg/dL Ferritin (26-388) ng/mL Total Bilirubin 1.1 H (0.2-1.0) mg/dL AST 87 H (15-37) U/L ALT 88 H (16-63) U/L Alkaline Phosphatase 114 (46-116) U/L Lactate Dehydrogenase (85-227) U/L Troponin I High Sens 7 (<=76) ng/L Total Protein 7.0 (6.4-8.2) g/dL Albumin 2.8 L (3.4-5.0) g/dL Globulin 4.2 Albumin/Globulin Ratio 0.67 Lipase 3112 H (73-393) U/L Ethyl Alcohol (0-3) mg/dL SARS CoV-2 RNA Rapid ROCHELLE (NEGATIVE) 10/27/20 10/27/20 10/27/20 Range/Units 15:54 15:54 15:54 WBC (4.0-10.0) x10^3/uL RBC (4.5-6.0) x10^6/uL Hgb (14.0-18.0) g/dL Hct (40.0-52.0) % MCV (78.0-93.0) fL MCH (26.0-32.0) pg MCHC (32.0-36.0) g/dL RDW Coeff of John (10.0-15.0) % Plt Count (130-400) x10^3/uL Neut % (Auto) (50.0-80.0) % Lymph % (Auto) (25.0-50.0) % Collier % (Auto) (2.0-11.0) % Eos % (Auto) (0.0-4.0) % Baso % (Auto) (0.2-1.2) % Sodium (136-145) mmol/L Potassium (3.5-5.1) mmol/L Chloride (98-107) mmol/L Carbon Dioxide (21-32) mmol/L Anion Gap (5-15) mmol/L BUN (7-18) mg/dL Creatinine (0.70-1.30) mg/dL Est Cr Clr Drug Dosing Estimated GFR (MDRD) Glucose (70-99) mg/dL Lactic Acid (0.4-2.0) mmol/L Calcium (8.5-10.1) mg/dL Corrected Calcium (8.5-10.1) mg/dL Magnesium (1.8-2.4) mg/dL Ferritin 798 H (26-388) ng/mL Total Bilirubin (0.2-1.0) mg/dL AST (15-37) U/L ALT (16-63) U/L Alkaline Phosphatase (46-116) U/L Lactate Dehydrogenase 350 H (85-227) U/L Troponin I High Sens (<=76) ng/L Total Protein (6.4-8.2) g/dL Albumin (3.4-5.0) g/dL Globulin Albumin/Globulin Ratio Lipase (73-393) U/L Ethyl Alcohol < 3 (0-3) mg/dL SARS CoV-2 RNA Rapid ROCHELLE (NEGATIVE) 10/27/20 10/27/20 Range/Units 15:54 16:59 WBC (4.0-10.0) x10^3/uL RBC (4.5-6.0) x10^6/uL Hgb (14.0-18.0) g/dL Hct (40.0-52.0) % MCV (78.0-93.0) fL MCH (26.0-32.0) pg MCHC (32.0-36.0) g/dL RDW Coeff of John (10.0-15.0) % Plt Count (130-400) x10^3/uL Neut % (Auto) (50.0-80.0) % Lymph % (Auto) (25.0-50.0) % Collier % (Auto) (2.0-11.0) % Eos % (Auto) (0.0-4.0) % Baso % (Auto) (0.2-1.2) % Sodium (136-145) mmol/L Potassium (3.5-5.1) mmol/L Chloride (98-107) mmol/L Carbon Dioxide (21-32) mmol/L Anion Gap (5-15) mmol/L BUN (7-18) mg/dL Creatinine (0.70-1.30) mg/dL Est Cr Clr Drug Dosing Estimated GFR (MDRD) Glucose (70-99) mg/dL Lactic Acid 2.7 H* (0.4-2.0) mmol/L Calcium (8.5-10.1) mg/dL Corrected Calcium (8.5-10.1) mg/dL Magnesium (1.8-2.4) mg/dL Ferritin (26-388) ng/mL Total Bilirubin (0.2-1.0) mg/dL AST (15-37) U/L ALT (16-63) U/L Alkaline Phosphatase (46-116) U/L Lactate Dehydrogenase (85-227) U/L Troponin I High Sens (<=76) ng/L Total Protein (6.4-8.2) g/dL Albumin (3.4-5.0) g/dL Globulin Albumin/Globulin Ratio Lipase (73-393) U/L Ethyl Alcohol (0-3) mg/dL SARS CoV-2 RNA Rapid ROCHELLE Positive H (NEGATIVE) Result Diagrams: 10/27/20 15:54 10/27/20 15:54 Sepsis Event Note - Evaluation Sepsis Screening Result: No Definite Risk - Focused Exam Vital Signs: Vital Signs Temp Pulse Resp BP Pulse Ox 10/27/20 15:08 36.7 C 89 20 108/69 93 L - Problem List (1) Respiratory failure SNOMED Code(s): 013312180 ICD Code: J96.90 - RESPIRATORY FAILURE, UNSP, UNSP W HYPOXIA OR HYPERCAPNIA Status: Acute Current Visit: Yes Qualifiers: Chronicity: acute Respiratory failure complication: hypoxia Qualified Code(s): J96.01 - Acute respiratory failure with hypoxia (2) COVID-19 SNOMED Code(s): 964899173 ICD Code: U07.1 - COVID-19 Status: Acute Current Visit: Yes (3) Pancreatitis SNOMED Code(s): 79261716 ICD Code: K85.90 - ACUTE PANCREATITIS WITHOUT NECROSIS OR INFECTION, UNSP Status: Acute Current Visit: Yes Qualifiers: Chronicity: acute Pancreatitis type: unspecified pancreatitis type Acute pancreatitis complication: unspecified Qualified Code(s): K85.90 - Acute pancreatitis without necrosis or infection, unspecified (4) Acute kidney injury SNOMED Code(s): 24372763, 53160235 ICD Code: N17.9 - ACUTE KIDNEY FAILURE, UNSPECIFIED Status: Acute Current Visit: No Problem Details: Most likely due to outlet obstruction (5) Leukopenia SNOMED Code(s): 11959813, 857111618 ICD Code: D72.819 - DECREASED WHITE BLOOD CELL COUNT, UNSPECIFIED Status: Acute Current Visit: Yes Qualifiers: Leukopenia type: unspecified Qualified Code(s): D72.819 - Decreased white blood cell count, unspecified (6) Thrombocytopenia SNOMED Code(s): 275557639 ICD Code: D69.6 - THROMBOCYTOPENIA, UNSPECIFIED Status: Acute Current Visit: Yes (7) Transaminitis SNOMED Code(s): 168684655, 779942575 ICD Code: R74.01 - ELEVATION OF LEVELS OF LIVER TRANSAMINASE LEVELS Status: Acute Current Visit: Yes (8) Atrial fibrillation SNOMED Code(s): 74584099 ICD Code: I48.91 - UNSPECIFIED ATRIAL FIBRILLATION Status: Chronic Current Visit: Yes (9) Diabetes SNOMED Code(s): 69145457 ICD Code: E11.9 - TYPE 2 DIABETES MELLITUS WITHOUT COMPLICATIONS Status: Chronic Current Visit: Yes (10) Obesity SNOMED Code(s): 758236570, 772651662 ICD Code: E66.9 - OBESITY, UNSPECIFIED Status: Chronic Current Visit: Yes (11) Cirrhosis SNOMED Code(s): 07319396 ICD Code: K74.60 - UNSPECIFIED CIRRHOSIS OF LIVER Status: Chronic Current Visit: Yes Problem List Initiated/Reviewed/Updated: Yes Orders Last 24hrs: Active Orders 24 hr Category Date Time Status Admission Status [Patient Status] [ADT] Routine ADT 10/27/20 20:28 Active EKG Documentation Completion [RC] STAT Care 10/27/20 15:46 Active Notify Provider Vital Signs [RC] ASDIRECTED Care 10/27/20 21:53 Ordered Oxygen Therapy [RC] PRN Care 10/27/20 21:52 Ordered Up With Assistance [RC] ASDIRECTED Care 10/27/20 21:52 Ordered VTE/DVT Education [RC] PER UNIT ROUTINE Care 10/27/20 21:52 Ordered Vital Signs [RC] Q4H Care 10/27/20 21:52 Ordered Clear Liquid Diet [DIET] Diet 10/27/20 Breakfast Ordered C-REACTIVE PROTEIN [CHEM] Routine Lab 10/28/20 05:11 Ordered CBC WITH AUTO DIFF [HEME] Routine Lab 10/28/20 05:11 Ordered COMPREHENSIVE METABOLIC PN,CMP [CHEM] Routine Lab 10/28/20 05:11 Ordered FERRITIN [CHEM] Routine Lab 10/28/20 05:11 Ordered LACTATE DEHYDROGENASE,LDH [CHEM] Routine Lab 10/28/20 05:11 Ordered LACTATE SEPSIS W/ REFLEX [CHEM] Routine Lab 10/28/20 05:11 Ordered PROCALCITONIN [REF] Stat Lab 10/27/20 15:54 Received REFLEX LACTIC ACID YES OR NO [CHEM] Routine Lab 10/27/20 20:34 Received UA RFX RENETTA AND CULT IF INDIC [URIN] Stat Lab 10/27/20 15:46 Ordered Ondansetron [Zofran] Med 10/27/20 21:55 Ordered 4 mg IVPUSH Q8H PRN Sodium Chloride 0.9% [Saline Flush] Med 10/27/20 15:46 Active 10 ml FLUSH ASDIRECTED PRN dexAMETHasone 6 MG Med 10/28/20 08:00 Ordered 6 mg PO DAILY Peripheral IV Insertion Adult [OM.PC] Stat Oth 10/27/20 15:46 Ordered Resuscitation Status Routine Resus Stat 10/27/20 21:52 Ordered Medication Orders Dexamethasone 2 mg/ (Dexamethasone 4 mg) 6 mg PO DAILY MARY Ondansetron HCl (Ondansetron 4 Mg/2 Ml Sdv) 4 mg IVPUSH Q8H PRN PRN Reason: Nausea Sodium Chloride (Sodium Chloride 0.9% 10 Ml Syringe) 10 ml FLUSH ASDIRECTED PRN PRN Reason: Keep Vein Open Assessment/Plan Comment:: #1 Acute hypoxic respiratory failure, secondary to #2 #2 COVID-19 - Supplemental oxygen to maintain saturations >90%. - Patient will be on continuous pulse oximetry. - Liver enzymes are elevated, which is a precaution for remdesivir. Will recheck tomorrow am and assess whether he is ok to receive remdesivir at that time. - Dexamethasone 6 mg PO daily. - Patient status is guarded at this point. He is at 10 days of illness, which is generally the peak of the illness. Thus, the next 24-48 hours will be very informative. #3 Pancreatitis - Lipase severely elevated. Pancreatitis seen on CT scan. - Possibly related to the COVID. - Patient has a history of alcohol use disorder but denies any recent alcohol use. - Although generous fluids are generally recommended for treatment of pancreatitis, judicious fluids are the recommendation for COVID. Patient already got 1L in the ER. Will hold off on further fluids for now and recheck labs in the am. - Clear liquid diet. - Zofran PRN nausea. #4 MARIA - Likely secondary to dehydration/prerenal etiology. - See fluid plans as above. - Recheck labs in the am. #5 Leukopenia #6 Thrombocytopenia - Both are acute and likely secondary to the COVID. - Recheck daily. #7 Transaminitis #8 Cirrhosis - Patient has a history of cirrhosis but has always had normal liver enzymes. - Elevation likely related to COVID vs pancreatitis. - Recheck tomorrow am. - He has already had an extensive evaluation with GI previously for alternative causes to obesity and alcohol. - Will plan to update u/s as an outpatient. #9 A-fib - Single episode during hospitalization in 2019. - Will monitor for recurrence during this hospitalization. - Was to do a zio patch but never completed this. - Will need to follow-up outpatient. #10 Diabetes - Patient has not been taking any medications for this. - Will check daily with am labs and assess need for more frequent glucoses and/or treatments. #11 Obesity Patient is admitted to acute - status is guarded as he is on the borderline for timing of decompensation in COVID patients. See detailed plans above. Patient is on no home medications. Recheck labs in the am. Code status is full. Will likely need lovenox for VTE prophylaxis but will await repeat CBC and creatinine in the am prior to starting this. - Mortality Measure Prognosis:: Good
[2020-10-28 07:16] LABS: CHLORIDE,CL 103 mmol/L (98-107); SODIUM,NA 137 mmol/L (136-145)
[2020-10-28 07:24] LABS: ANION GAP 14.9 mmol/L (5-15)
[2020-10-28] MEDS: dexAMETHasone 2 MG, dexAMETHasone 4 MG PO SCH ×2 (07:29)
--- NOTE | 2020-10-28 08:29 | PCM.PN ---
- General Info Date of Service: 10/28/20 Subjective Update: 69 yo male hospital day #2 admitted with COVID and pancreatitis. His main concern this morning is pain. He had been feeling fine when I saw him last evening but then had recurrence of pain overnight. He states that he hurts everywhere from his "toes to his nose." His back is the worst. He did not get much sleep last night. He notes that if he could just get some good sleep, he would likely feel much better. He is coughing with movement or eating. No shortn ess of breath or chest pain/tightness. He has been able to drink some clear liquids this morning. He did have some mild nausea but that resolved once he took a break from the fluids. No vomiting since admission. No abdominal pain or fever. - Review of Systems General: Reports: No Symptoms HEENT: Reports: No Symptoms Pulmonary: Reports: Cough. Denies: Shortness of Breath Cardiovascular: Reports: No Symptoms Gastrointestinal: Reports: Nausea. Denies: Abdominal Pain, Constipation, Diarrhea, Vomiting Genitourinary: Reports: No Symptoms Musculoskeletal: Reports: Back Pain, Other (diffuse myalgias/arthralgias) Skin: Reports: No Symptoms Neurological: Reports: No Symptoms - Patient Data Vitals - Most Recent: Last Vital Signs Temp 38.3 C H 10/28/20 02:00 Pulse 80 10/28/20 02:00 Resp 16 10/28/20 02:00 BP 164/79 H 10/28/20 02:00 Pulse Ox 91 L 10/27/20 22:10 I&O - Last 24 Hours: Intake & Output 10/27/20 10/28/20 10/28/20 22:59 06:59 14:59 Output Total 0 Balance 0 Lab Results Last 24 Hours: Laboratory Results - last 24 hr 10/27/20 10/27/20 10/27/20 Range/Units 15:54 15:54 15:54 WBC 2.9 L (4.0-10.0) x10^3/uL RBC 5.30 (4.5-6.0) x10^6/uL Hgb 16.0 (14.0-18.0) g/dL Hct 46.0 (40.0-52.0) % MCV 86.8 (78.0-93.0) fL MCH 30.2 (26.0-32.0) pg MCHC 34.8 (32.0-36.0) g/dL RDW Coeff of John 13.8 (10.0-15.0) % Plt Count 100 L (130-400) x10^3/uL Neut % (Auto) 76.1 (50.0-80.0) % Lymph % (Auto) 11.8 L (25.0-50.0) % Monroe % (Auto) 11.8 H (2.0-11.0) % Eos % (Auto) 0.0 (0.0-4.0) % Baso % (Auto) 0.3 (0.2-1.2) % Sodium 136 (136-145) mmol/L Potassium 4.5 (3.5-5.1) mmol/L Chloride 101 (98-107) mmol/L Carbon Dioxide 26 (21-32) mmol/L Anion Gap 13.5 (5-15) mmol/L BUN 19 H (7-18) mg/dL Creatinine 1.4 H (0.70-1.30) mg/dL Est Cr Clr Drug Dosing TNP Estimated GFR (MDRD) 51 Glucose 270 H (70-99) mg/dL Lactic Acid (0.4-2.0) mmol/L Calcium 9.3 (8.5-10.1) mg/dL Corrected Calcium 10.3 H (8.5-10.1) mg/dL Magnesium 1.9 (1.8-2.4) mg/dL Ferritin (26-388) ng/mL Total Bilirubin 1.1 H (0.2-1.0) mg/dL AST 87 H (15-37) U/L ALT 88 H (16-63) U/L Alkaline Phosphatase 114 (46-116) U/L Lactate Dehydrogenase (85-227) U/L Troponin I High Sens 7 (<=76) ng/L C-Reactive Protein (<=0.9) mg/dL Total Protein 7.0 (6.4-8.2) g/dL Albumin 2.8 L (3.4-5.0) g/dL Globulin 4.2 Albumin/Globulin Ratio 0.67 Lipase 3112 H (73-393) U/L Ethyl Alcohol (0-3) mg/dL SARS CoV-2 RNA Rapid ROCHELLE (NEGATIVE) 10/27/20 10/27/20 10/27/20 Range/Units 15:54 15:54 15:54 WBC (4.0-10.0) x10^3/uL RBC (4.5-6.0) x10^6/uL Hgb (14.0-18.0) g/dL Hct (40.0-52.0) % MCV (78.0-93.0) fL MCH (26.0-32.0) pg MCHC (32.0-36.0) g/dL RDW Coeff of John (10.0-15.0) % Plt Count (130-400) x10^3/uL Neut % (Auto) (50.0-80.0) % Lymph % (Auto) (25.0-50.0) % Monroe % (Auto) (2.0-11.0) % Eos % (Auto) (0.0-4.0) % Baso % (Auto) (0.2-1.2) % Sodium (136-145) mmol/L Potassium (3.5-5.1) mmol/L Chloride (98-107) mmol/L Carbon Dioxide (21-32) mmol/L Anion Gap (5-15) mmol/L BUN (7-18) mg/dL Creatinine (0.70-1.30) mg/dL Est Cr Clr Drug Dosing Estimated GFR (MDRD) Glucose (70-99) mg/dL Lactic Acid (0.4-2.0) mmol/L Calcium (8.5-10.1) mg/dL Corrected Calcium (8.5-10.1) mg/dL Magnesium (1.8-2.4) mg/dL Ferritin 798 H (26-388) ng/mL Total Bilirubin (0.2-1.0) mg/dL AST (15-37) U/L ALT (16-63) U/L Alkaline Phosphatase (46-116) U/L Lactate Dehydrogenase 350 H (85-227) U/L Troponin I High Sens (<=76) ng/L C-Reactive Protein (<=0.9) mg/dL Total Protein (6.4-8.2) g/dL Albumin (3.4-5.0) g/dL Globulin Albumin/Globulin Ratio Lipase (73-393) U/L Ethyl Alcohol < 3 (0-3) mg/dL SARS CoV-2 RNA Rapid ROCHELLE (NEGATIVE) 10/27/20 10/27/20 10/27/20 Range/Units 15:54 16:59 23:20 WBC (4.0-10.0) x10^3/uL RBC (4.5-6.0) x10^6/uL Hgb (14.0-18.0) g/dL Hct (40.0-52.0) % MCV (78.0-93.0) fL MCH (26.0-32.0) pg MCHC (32.0-36.0) g/dL RDW Coeff of John (10.0-15.0) % Plt Count (130-400) x10^3/uL Neut % (Auto) (50.0-80.0) % Lymph % (Auto) (25.0-50.0) % Monroe % (Auto) (2.0-11.0) % Eos % (Auto) (0.0-4.0) % Baso % (Auto) (0.2-1.2) % Sodium (136-145) mmol/L Potassium (3.5-5.1) mmol/L Chloride (98-107) mmol/L Carbon Dioxide (21-32) mmol/L Anion Gap (5-15) mmol/L BUN (7-18) mg/dL Creatinine (0.70-1.30) mg/dL Est Cr Clr Drug Dosing Estimated GFR (MDRD) Glucose (70-99) mg/dL Lactic Acid 2.7 H* 1.7 (0.4-2.0) mmol/L Calcium (8.5-10.1) mg/dL Corrected Calcium (8.5-10.1) mg/dL Magnesium (1.8-2.4) mg/dL Ferritin (26-388) ng/mL Total Bilirubin (0.2-1.0) mg/dL AST (15-37) U/L ALT (16-63) U/L Alkaline Phosphatase (46-116) U/L Lactate Dehydrogenase (85-227) U/L Troponin I High Sens (<=76) ng/L C-Reactive Protein (<=0.9) mg/dL Total Protein (6.4-8.2) g/dL Albumin (3.4-5.0) g/dL Globulin Albumin/Globulin Ratio Lipase (73-393) U/L Ethyl Alcohol (0-3) mg/dL SARS CoV-2 RNA Rapid ROCHELLE Positive H (NEGATIVE) 10/28/20 10/28/20 10/28/20 Range/Units 06:40 06:40 06:40 WBC 2.8 L (4.0-10.0) x10^3/uL RBC 5.29 (4.5-6.0) x10^6/uL Hgb 15.8 (14.0-18.0) g/dL Hct 45.7 (40.0-52.0) % MCV 86.4 (78.0-93.0) fL MCH 29.9 (26.0-32.0) pg MCHC 34.6 (32.0-36.0) g/dL RDW Coeff of John 13.8 (10.0-15.0) % Plt Count 96 L (130-400) x10^3/uL Neut % (Auto) 78.2 (50.0-80.0) % Lymph % (Auto) 12.0 L (25.0-50.0) % Monroe % (Auto) 9.8 (2.0-11.0) % Eos % (Auto) 0.0 (0.0-4.0) % Baso % (Auto) 0.0 L (0.2-1.2) % Sodium 137 (136-145) mmol/L Potassium 3.9 (3.5-5.1) mmol/L Chloride 103 (98-107) mmol/L Carbon Dioxide 23 (21-32) mmol/L Anion Gap 14.9 (5-15) mmol/L BUN 16 (7-18) mg/dL Creatinine 1.1 (0.70-1.30) mg/dL Est Cr Clr Drug Dosing TNP Estimated GFR (MDRD) > 60 Glucose 219 H (70-99) mg/dL Lactic Acid (0.4-2.0) mmol/L Calcium 9.4 (8.5-10.1) mg/dL Corrected Calcium 10.5 H (8.5-10.1) mg/dL Magnesium (1.8-2.4) mg/dL Ferritin 794 H (26-388) ng/mL Total Bilirubin 1.1 H (0.2-1.0) mg/dL AST 78 H (15-37) U/L ALT 75 H (16-63) U/L Alkaline Phosphatase 108 (46-116) U/L Lactate Dehydrogenase 342 H (85-227) U/L Troponin I High Sens (<=76) ng/L C-Reactive Protein 10.4 H (<=0.9) mg/dL Total Protein 6.7 (6.4-8.2) g/dL Albumin 2.6 L (3.4-5.0) g/dL Globulin 4.1 Albumin/Globulin Ratio 0.63 Lipase (73-393) U/L Ethyl Alcohol (0-3) mg/dL SARS CoV-2 RNA Rapid ROCHELLE (NEGATIVE) 10/28/20 10/28/20 Range/Units 06:40 06:40 WBC (4.0-10.0) x10^3/uL RBC (4.5-6.0) x10^6/uL Hgb (14.0-18.0) g/dL Hct (40.0-52.0) % MCV (78.0-93.0) fL MCH (26.0-32.0) pg MCHC (32.0-36.0) g/dL RDW Coeff of John (10.0-15.0) % Plt Count (130-400) x10^3/uL Neut % (Auto) (50.0-80.0) % Lymph % (Auto) (25.0-50.0) % Monroe % (Auto) (2.0-11.0) % Eos % (Auto) (0.0-4.0) % Baso % (Auto) (0.2-1.2) % Sodium (136-145) mmol/L Potassium (3.5-5.1) mmol/L Chloride (98-107) mmol/L Carbon Dioxide (21-32) mmol/L Anion Gap (5-15) mmol/L BUN (7-18) mg/dL Creatinine (0.70-1.30) mg/dL Est Cr Clr Drug Dosing Estimated GFR (MDRD) Glucose (70-99) mg/dL Lactic Acid 1.6 (0.4-2.0) mmol/L Calcium (8.5-10.1) mg/dL Corrected Calcium (8.5-10.1) mg/dL Magnesium (1.8-2.4) mg/dL Ferritin (26-388) ng/mL Total Bilirubin (0.2-1.0) mg/dL AST (15-37) U/L ALT (16-63) U/L Alkaline Phosphatase (46-116) U/L Lactate Dehydrogenase (85-227) U/L Troponin I High Sens (<=76) ng/L C-Reactive Protein (<=0.9) mg/dL Total Protein (6.4-8.2) g/dL Albumin (3.4-5.0) g/dL Globulin Albumin/Globulin Ratio Lipase 780 H (73-393) U/L Ethyl Alcohol (0-3) mg/dL SARS CoV-2 RNA Rapid ROCHELLE (NEGATIVE) Med Orders - Current: Current Medications Cyclobenzaprine HCl (Cyclobenzaprine 10 Mg Tab) 5 mg PO Q8H PRN PRN Reason: Pain Dexamethasone 2 mg/ (Dexamethasone 4 mg) 6 mg PO DAILY [facility] Last Admin: 10/28/20 07:29 Dose: 6 mg Documented by: Ondansetron HCl (Ondansetron 4 Mg/2 Ml Sdv) 4 mg IVPUSH Q8H PRN PRN Reason: Nausea Sodium Chloride (Sodium Chloride 0.9% 10 Ml Syringe) 10 ml FLUSH ASDIRECTED PRN PRN Reason: Keep Vein Open Discontinued Medications Dexamethasone 2 mg/ (Dexamethasone 4 mg) 6 mg PO ONETIME ONE Stop: 10/27/20 19:34 Last Admin: 10/28/20 00:16 Dose: Not Given Documented by: Lactated Ringer's (Ringers, Lactated) 1,000 mls @ 999 mls/hr IV ONETIME ONE Stop: 10/27/20 16:47 Last Admin: 10/27/20 16:02 Dose: 999 mls/hr Documented by: Lactated Ringer's (Ringers, Lactated) 1,000 mls @ 250 mls/hr IV ASDIRECTED [facility] Last Admin: 10/27/20 17:21 Dose: 250 mls/hr Documented by: Iopamidol (Iopamidol 612 Mg/Ml 100 Ml Bottle) 100 ml IVPUSH ONETIME ONE Stop: 10/27/20 19:55 Last Admin: 10/27/20 19:54 Dose: 100 ml Documented by: Ondansetron HCl (Ondansetron 4 Mg/2 Ml Sdv) 4 mg IV ONETIME ONE Stop: 10/27/20 15:48 Last Admin: 10/27/20 16:04 Dose: 4 mg Documented by: - Exam General: Alert, Oriented, Cooperative, No Acute Distress HEENT: Mucous Membr. Moist/[place] Neck: Supple, Trachea Midline, No Thyromegaly. No: Lymphadenopathy Lungs: Normal Respiratory Effort, Crackles (throughout bilaterally) Cardiovascular: Regular Rate, Regular Rhythm, No Murmurs GI/Abdominal Exam: Normal Bowel Sounds, Soft, Non-Tender, No Distention Extremities: Normal Inspection, Non-Tender, No Pedal Edema Peripheral Pulses: 2+: Radial (L), Radial (R) Skin: Warm, Dry, Intact Neurological: No New Focal Deficit - Patient Data Lab Results Last 24 hrs: Laboratory Results - last 24 hr 10/27/20 10/27/20 10/27/20 Range/Units 15:54 15:54 15:54 WBC 2.9 L (4.0-10.0) x10^3/uL RBC 5.30 (4.5-6.0) x10^6/uL Hgb 16.0 (14.0-18.0) g/dL Hct 46.0 (40.0-52.0) % MCV 86.8 (78.0-93.0) fL MCH 30.2 (26.0-32.0) pg MCHC 34.8 (32.0-36.0) g/dL RDW Coeff of John 13.8 (10.0-15.0) % Plt Count 100 L (130-400) x10^3/uL Neut % (Auto) 76.1 (50.0-80.0) % Lymph % (Auto) 11.8 L (25.0-50.0) % Monroe % (Auto) 11.8 H (2.0-11.0) % Eos % (Auto) 0.0 (0.0-4.0) % Baso % (Auto) 0.3 (0.2-1.2) % Sodium 136 (136-145) mmol/L Potassium 4.5 (3.5-5.1) mmol/L Chloride 101 (98-107) mmol/L Carbon Dioxide 26 (21-32) mmol/L Anion Gap 13.5 (5-15) mmol/L BUN 19 H (7-18) mg/dL Creatinine 1.4 H (0.70-1.30) mg/dL Est Cr Clr Drug Dosing TNP Estimated GFR (MDRD) 51 Glucose 270 H (70-99) mg/dL Lactic Acid (0.4-2.0) mmol/L Calcium 9.3 (8.5-10.1) mg/dL Corrected Calcium 10.3 H (8.5-10.1) mg/dL Magnesium 1.9 (1.8-2.4) mg/dL Ferritin (26-388) ng/mL Total Bilirubin 1.1 H (0.2-1.0) mg/dL AST 87 H (15-37) U/L ALT 88 H (16-63) U/L Alkaline Phosphatase 114 (46-116) U/L Lactate Dehydrogenase (85-227) U/L Troponin I High Sens 7 (<=76) ng/L C-Reactive Protein (<=0.9) mg/dL Total Protein 7.0 (6.4-8.2) g/dL Albumin 2.8 L (3.4-5.0) g/dL Globulin 4.2 Albumin/Globulin Ratio 0.67 Lipase 3112 H (73-393) U/L Ethyl Alcohol (0-3) mg/dL SARS CoV-2 RNA Rapid ROCHELLE (NEGATIVE) 10/27/20 10/27/20 10/27/20 Range/Units 15:54 15:54 15:54 WBC (4.0-10.0) x10^3/uL RBC (4.5-6.0) x10^6/uL Hgb (14.0-18.0) g/dL Hct (40.0-52.0) % MCV (78.0-93.0) fL MCH (26.0-32.0) pg MCHC (32.0-36.0) g/dL RDW Coeff of John (10.0-15.0) % Plt Count (130-400) x10^3/uL Neut % (Auto) (50.0-80.0) % Lymph % (Auto) (25.0-50.0) % Monroe % (Auto) (2.0-11.0) % Eos % (Auto) (0.0-4.0) % Baso % (Auto) (0.2-1.2) % Sodium (136-145) mmol/L Potassium (3.5-5.1) mmol/L Chloride (98-107) mmol/L Carbon Dioxide (21-32) mmol/L Anion Gap (5-15) mmol/L BUN (7-18) mg/dL Creatinine (0.70-1.30) mg/dL Est Cr Clr Drug Dosing Estimated GFR (MDRD) Glucose (70-99) mg/dL Lactic Acid (0.4-2.0) mmol/L Calcium (8.5-10.1) mg/dL Corrected Calcium (8.5-10.1) mg/dL Magnesium (1.8-2.4) mg/dL Ferritin 798 H (26-388) ng/mL Total Bilirubin (0.2-1.0) mg/dL AST (15-37) U/L ALT (16-63) U/L Alkaline Phosphatase (46-116) U/L Lactate Dehydrogenase 350 H (85-227) U/L Troponin I High Sens (<=76) ng/L C-Reactive Protein (<=0.9) mg/dL Total Protein (6.4-8.2) g/dL Albumin (3.4-5.0) g/dL Globulin Albumin/Globulin Ratio Lipase (73-393) U/L Ethyl Alcohol < 3 (0-3) mg/dL SARS CoV-2 RNA Rapid ROCHELLE (NEGATIVE) 10/27/20 10/27/20 10/27/20 Range/Units 15:54 16:59 23:20 WBC (4.0-10.0) x10^3/uL RBC (4.5-6.0) x10^6/uL Hgb (14.0-18.0) g/dL Hct (40.0-52.0) % MCV (78.0-93.0) fL MCH (26.0-32.0) pg MCHC (32.0-36.0) g/dL RDW Coeff of John (10.0-15.0) % Plt Count (130-400) x10^3/uL Neut % (Auto) (50.0-80.0) % Lymph % (Auto) (25.0-50.0) % Monroe % (Auto) (2.0-11.0) % Eos % (Auto) (0.0-4.0) % Baso % (Auto) (0.2-1.2) % Sodium (136-145) mmol/L Potassium (3.5-5.1) mmol/L Chloride (98-107) mmol/L Carbon Dioxide (21-32) mmol/L Anion Gap (5-15) mmol/L BUN (7-18) mg/dL Creatinine (0.70-1.30) mg/dL Est Cr Clr Drug Dosing Estimated GFR (MDRD) Glucose (70-99) mg/dL Lactic Acid 2.7 H* 1.7 (0.4-2.0) mmol/L Calcium (8.5-10.1) mg/dL Corrected Calcium (8.5-10.1) mg/dL Magnesium (1.8-2.4) mg/dL Ferritin (26-388) ng/mL Total Bilirubin (0.2-1.0) mg/dL AST (15-37) U/L ALT (16-63) U/L Alkaline Phosphatase (46-116) U/L Lactate Dehydrogenase (85-227) U/L Troponin I High Sens (<=76) ng/L C-Reactive Protein (<=0.9) mg/dL Total Protein (6.4-8.2) g/dL Albumin (3.4-5.0) g/dL Globulin Albumin/Globulin Ratio Lipase (73-393) U/L Ethyl Alcohol (0-3) mg/dL SARS CoV-2 RNA Rapid ROCHELLE Positive H (NEGATIVE) 10/28/20 10/28/20 10/28/20 Range/Units 06:40 06:40 06:40 WBC 2.8 L (4.0-10.0) x10^3/uL RBC 5.29 (4.5-6.0) x10^6/uL Hgb 15.8 (14.0-18.0) g/dL Hct 45.7 (40.0-52.0) % MCV 86.4 (78.0-93.0) fL MCH 29.9 (26.0-32.0) pg MCHC 34.6 (32.0-36.0) g/dL RDW Coeff of John 13.8 (10.0-15.0) % Plt Count 96 L (130-400) x10^3/uL Neut % (Auto) 78.2 (50.0-80.0) % Lymph % (Auto) 12.0 L (25.0-50.0) % Monroe % (Auto) 9.8 (2.0-11.0) % Eos % (Auto) 0.0 (0.0-4.0) % Baso % (Auto) 0.0 L (0.2-1.2) % Sodium 137 (136-145) mmol/L Potassium 3.9 (3.5-5.1) mmol/L Chloride 103 (98-107) mmol/L Carbon Dioxide 23 (21-32) mmol/L Anion Gap 14.9 (5-15) mmol/L BUN 16 (7-18) mg/dL Creatinine 1.1 (0.70-1.30) mg/dL Est Cr Clr Drug Dosing TNP Estimated GFR (MDRD) > 60 Glucose 219 H (70-99) mg/dL Lactic Acid (0.4-2.0) mmol/L Calcium 9.4 (8.5-10.1) mg/dL Corrected Calcium 10.5 H (8.5-10.1) mg/dL Magnesium (1.8-2.4) mg/dL Ferritin 794 H (26-388) ng/mL Total Bilirubin 1.1 H (0.2-1.0) mg/dL AST 78 H (15-37) U/L ALT 75 H (16-63) U/L Alkaline Phosphatase 108 (46-116) U/L Lactate Dehydrogenase 342 H (85-227) U/L Troponin I High Sens (<=76) ng/L C-Reactive Protein 10.4 H (<=0.9) mg/dL Total Protein 6.7 (6.4-8.2) g/dL Albumin 2.6 L (3.4-5.0) g/dL Globulin 4.1 Albumin/Globulin Ratio 0.63 Lipase (73-393) U/L Ethyl Alcohol (0-3) mg/dL SARS CoV-2 RNA Rapid ROCHELLE (NEGATIVE) 10/28/20 10/28/20 Range/Units 06:40 06:40 WBC (4.0-10.0) x10^3/uL RBC (4.5-6.0) x10^6/uL Hgb (14.0-18.0) g/dL Hct (40.0-52.0) % MCV (78.0-93.0) fL MCH (26.0-32.0) pg MCHC (32.0-36.0) g/dL RDW Coeff of John (10.0-15.0) % Plt Count (130-400) x10^3/uL Neut % (Auto) (50.0-80.0) % Lymph % (Auto) (25.0-50.0) % [place] % (Auto) (2.0-11.0) % Eos % (Auto) (0.0-4.0) % Baso % (Auto) (0.2-1.2) % Sodium (136-145) mmol/L Potassium (3.5-5.1) mmol/L Chloride (98-107) mmol/L Carbon Dioxide (21-32) mmol/L Anion Gap (5-15) mmol/L BUN (7-18) mg/dL Creatinine (0.70-1.30) mg/dL Est Cr Clr Drug Dosing Estimated GFR (MDRD) Glucose (70-99) mg/dL Lactic Acid 1.6 (0.4-2.0) mmol/L Calcium (8.5-10.1) mg/dL Corrected Calcium (8.5-10.1) mg/dL Magnesium (1.8-2.4) mg/dL Ferritin (26-388) ng/mL Total Bilirubin (0.2-1.0) mg/dL AST (15-37) U/L ALT (16-63) U/L Alkaline Phosphatase (46-116) U/L Lactate Dehydrogenase (85-227) U/L Troponin I High Sens (<=76) ng/L C-Reactive Protein (<=0.9) mg/dL Total Protein (6.4-8.2) g/dL Albumin (3.4-5.0) g/dL Globulin Albumin/Globulin Ratio Lipase 780 H (73-393) U/L Ethyl Alcohol (0-3) mg/dL SARS CoV-2 RNA Rapid ROCHELLE (NEGATIVE) Result Diagrams: 10/28/20 06:40 10/28/20 06:40 Sepsis Event Note - Evaluation Sepsis Screening Result: No Definite Risk - Focused Exam Vital Signs: Vital Signs Temp Pulse Resp BP Pulse Ox 10/28/20 02:00 38.3 C H 80 16 164/79 H 10/27/20 22:10 74 16 114/62 91 L - Problem List & Annotations (1) Respiratory failure SNOMED Code(s): 100557877 Code(s): J96.90 - RESPIRATORY FAILURE, UNSP, UNSP W HYPOXIA OR HYPERCAPNIA Status: Acute Current Visit: Yes Qualifiers: Chronicity: acute Respiratory failure complication: hypoxia Qualified Code(s): J96.01 - Acute respiratory failure with hypoxia (2) COVID-19 SNOMED Code(s): 980936978 Code(s): U07.1 - COVID-19 Status: Acute Current Visit: Yes (3) Pancreatitis SNOMED Code(s): 50602507 Code(s): K85.90 - ACUTE PANCREATITIS WITHOUT NECROSIS OR INFECTION, UNSP Status: Acute Current Visit: Yes Qualifiers: Chronicity: acute Pancreatitis type: unspecified pancreatitis type Acute pancreatitis complication: unspecified Qualified Code(s): K85.90 - Acute pancreatitis without necrosis or infection, unspecified (4) Acute kidney injury SNOMED Code(s): 13225805, 67711462 Code(s): N17.9 - ACUTE KIDNEY FAILURE, UNSPECIFIED Status: Acute Current Visit: No Annotation/Comment:: Most likely due to outlet obstruction (5) Leukopenia SNOMED Code(s): 04998726, 596659486 Code(s): D72.819 - DECREASED WHITE BLOOD CELL COUNT, UNSPECIFIED Status: Acute Current Visit: Yes Qualifiers: Leukopenia type: unspecified Qualified Code(s): D72.819 - Decreased white blood cell count, unspecified (6) Thrombocytopenia SNOMED Code(s): 834154747 Code(s): D69.6 - THROMBOCYTOPENIA, UNSPECIFIED Status: Acute Current Visit: Yes (7) Transaminitis SNOMED Code(s): 167975944, 520859617 Code(s): R74.01 - ELEVATION OF LEVELS OF LIVER TRANSAMINASE LEVELS Status: Acute Current Visit: Yes (8) Atrial fibrillation SNOMED Code(s): 69966410 Code(s): I48.91 - UNSPECIFIED ATRIAL FIBRILLATION Status: Chronic Current Visit: Yes (9) Diabetes SNOMED Code(s): 81191403 Code(s): E11.9 - TYPE 2 DIABETES MELLITUS WITHOUT COMPLICATIONS Status: Chronic Current Visit: Yes (10) Obesity SNOMED Code(s): 684451092, 115360298 Code(s): E66.9 - OBESITY, UNSPECIFIED Status: Chronic Current Visit: Yes (11) Cirrhosis SNOMED Code(s): 75261977 Code(s): K74.60 - UNSPECIFIED CIRRHOSIS OF LIVER Status: Chronic Current Visit: Yes - Problem List Review Problem List Initiated/Reviewed/Updated: Yes - My Orders Last 24 Hours: My Active Orders 10/27/20 Breakfast Clear Liquid Diet [DIET] 10/27/20 21:52 Oxygen Therapy [RC] PRN Up With Assistance [RC] ASDIRECTED VTE/DVT Education [RC] PER UNIT ROUTINE Vital Signs [RC] Q4H Resuscitation Status Routine 10/27/20 21:53 Notify Provider Vital Signs [RC] ASDIRECTED 10/27/20 21:55 Ondansetron [Zofran] 4 mg IVPUSH Q8H PRN 10/28/20 08:00 dexAMETHasone 6 MG 6 mg PO DAILY 10/28/20 08:23 Cyclobenzaprine [Flexeril] 5 mg PO Q8H PRN - Assessment Assessment:: 69 yo male admitted with COVID and pancreatitis. Feeling about the same this morning, definitely no worse. Labs are all stable except lipase, which is significantly improved. - Plan Plan:: #1 Acute hypoxic respiratory failure, secondary to #2 #2 COVID-19 - Supplemental oxygen to maintain saturations >90%. - Patient will be on continuous pulse oximetry. - Liver enzymes are elevated, which is a precaution for remdesivir. Liver enzymes stable. Discussed with pharmacy and per the package insert, his liver enzymes are not in a range that the remdesivir is contraindicated. We just need to monitor these. Discussed starting this with the patient and he is in agreement. - Dexamethasone 6 mg PO daily. - He is stable at this point and hopefully will improve in the next 1-2 days w ith starting treatments as above. #3 Pancreatitis, resolving - Lipase elevated on admission but is significantly improved already this morning. Pancreatitis seen on CT scan. - Possibly related to the COVID. Patient has a history of alcohol use disorder but denies any recent alcohol use. - Patient is improving without further IV fluids and just doing diet changes. - Clear liquid diet through at least lunch. Can then reassess if we can advance at all. - Zofran PRN nausea. #4 MARIA, resolved - Likely secondary to dehydration/prerenal etiology. - Creatinine back to baseline this morning. - No further IV fluids unless recurrent issues. #5 Leukopenia #6 Thrombocytopenia - Both are acute and likely secondary to the COVID. - Recheck daily. Stable today. #7 Transaminitis #8 Cirrhosis - Patient has a history of cirrhosis but has always had normal liver enzymes. - Elevation likely related to COVID vs pancreatitis. - Labs are stable this am. Bilirubin essentially normal. - He has already had an extensive evaluation with GI previously for alternative causes to obesity and alcohol. - Will plan to update u/s as an outpatient. #9 A-fib - Single episode during hospitalization in 2019. - Will monitor for recurrence during this hospitalization. - Was to do a zio patch but never completed this. - Will need to follow-up outpatient. #10 Diabetes - Patient has not been taking any medications for this. - Will check daily with am labs and assess need for more frequent glucoses and/or treatments. #11 Obesity Patient will remain on acute today - status is guarded but more optimistic today given stability overnight as far as oxygen requirements. He is certainly not out of the [place]; the next 24-48 hours will be informative. His family had requested that he be transferred to [place]. [place] was contacted last evening and did not feel the patient needed cares in [place] and felt that he would be appropriate to keep here in [place]. Since he has been stable overnight, this would still be the case. The patient is ok with staying here in [place]. We will assess this daily and have a low threshold for transfer if any deterioration in clinical status. See detailed plans above. Patient is on no home medications. Recheck labs in the am. Code status is full. Platelets stable - since >50,000 and CrCl >30, will start lovenox for VTE prophylaxis.
[2020-10-28] MEDS ORDERED: REMDESIVIR 200 MG in Sodium Chloride 0.9% 250 ML IV ONE (08:47)
[2020-10-28] MEDS: Enoxaparin 40 MG/0.4 ML Syringe SUBCUT SCH (09:37)
[2020-10-28] MEDS: Cyclobenzaprine 10 MG Tab PO PRN (09:49)
--- NOTE | 2020-10-28 13:39 | PCM.SN.2 ---
- Free Text/Narrative Note: Patient is doing better at this point. Nursing wondering if his diet can be advanced, which is fine. Order given. He has not been keeping the oxygen on but is maintaining right around 90% on room air. His daughter has asked again for him to transfer to [place]. Confirmed with the patient that he does NOT want this. He is adamant that he wants to stay in [place] unless there is something he needs to go to [place] now. Given he is improving, transfer is unnecessary at this point.
[2020-10-28] MEDS: Sodium Chloride 0.9% 10 ML Syringe FLUSH PRN (20:21)
[2020-10-29 07:40] LABS: CHLORIDE,CL 105 mmol/L (98-107); SODIUM,NA 139 mmol/L (136-145)
[2020-10-29 07:50] LABS: ANION GAP 14.7 mmol/L (5-15)
[2020-10-29] MEDS: Enoxaparin 40 MG/0.4 ML Syringe SUBCUT SCH (07:50)
[2020-10-29] MEDS: dexAMETHasone 2 MG, dexAMETHasone 4 MG PO SCH ×2 (07:50)
[2020-10-29] MEDS ORDERED: Glucagon,Human Recombinant 1 MG Vial IM PRN (09:01)
[2020-10-29] MEDS ORDERED: 50% Dextrose in Water 50 ML Syringe IV PRN (09:01)
--- NOTE | 2020-10-29 09:08 | PCM.PN ---
- General Info Date of Service: 10/29/20 Subjective Update: 70 yo male hospital day #3 admitted with COVID and pancreatitis. Patient states he has rested well over the past 24 hours. Feels about the same as yesterday morning except he is having less pain. He has not been coughing much and denies any shortness of breath. He has been able to advance his diet to eating regular food with no issues. No abdominal pain, nausea, or vomiting. - Review of Systems General: Reports: No Symptoms HEENT: Reports: No Symptoms Pulmonary: Reports: No Symptoms Cardiovascular: Reports: No Symptoms Gastrointestinal: Reports: No Symptoms Genitourinary: Reports: No Symptoms Musculoskeletal: Reports: No Symptoms Skin: Reports: No Symptoms Neurological: Reports: No Symptoms - Patient Data Vitals - Most Recent: Last Vital Signs Temp 36.7 C 10/29/20 06:10 Pulse 65 10/29/20 06:10 Resp 20 10/29/20 06:10 BP 104/56 L 10/29/20 06:10 Pulse Ox 89 L 10/29/20 06:10 I&O - Last 24 Hours: Intake & Output 10/28/20 10/29/20 10/29/20 22:59 06:59 14:59 Intake Total 900 Output Total 1000 700 Balance -1000 200 Lab Results Last 24 Hours: Laboratory Results - last 24 hr 10/27/20 10/29/20 10/29/20 Range/Units 15:54 00:20 06:55 WBC (4.0-10.0) x10^3/uL RBC (4.5-6.0) x10^6/uL Hgb (14.0-18.0) g/dL Hct (40.0-52.0) % MCV (78.0-93.0) fL MCH (26.0-32.0) pg MCHC (32.0-36.0) g/dL RDW Coeff of John (10.0-15.0) % Plt Count (130-400) x10^3/uL Add Manual Diff Neutrophils % (Manual) (50-80) % Lymphocytes % (Manual) (25-50) % Atypical Lymphs % (0) % Monocytes % (Manual) (2-11) % Platelet Estimate PT (9.9-12.5) SEC INR (2.0-3.5) Sodium (136-145) mmol/L Potassium (3.5-5.1) mmol/L Chloride (98-107) mmol/L Carbon Dioxide (21-32) mmol/L Anion Gap (5-15) mmol/L BUN (7-18) mg/dL Creatinine (0.70-1.30) mg/dL Est Cr Clr Drug Dosing Estimated GFR (MDRD) Glucose (70-99) mg/dL POC Glucose 292 H (70-99) mg/dL Calcium (8.5-10.1) mg/dL Corrected Calcium (8.5-10.1) mg/dL Ferritin (26-388) ng/mL Total Bilirubin (0.2-1.0) mg/dL AST (15-37) U/L ALT (16-63) U/L Alkaline Phosphatase (46-116) U/L Lactate Dehydrogenase (85-227) U/L C-Reactive Protein (<=0.9) mg/dL Total Protein (6.4-8.2) g/dL Albumin (3.4-5.0) g/dL Globulin Albumin/Globulin Ratio Lipase (73-393) U/L Procalcitonin 0.18 H ng/mL Urine Color Yellow (YELLOW) Urine Appearance Clear (CLEAR) Urine pH 5.5 (5.0-8.0) Ur Specific [place] 1.015 Urine Protein Negative (NEGATIVE) mg/dL Urine Glucose (UA) 500 H (NEGATIVE) mg/dL Urine Ketones Trace H (NEGATIVE) mg/dL Urine Occult Blood Negative (NEGATIVE) Urine Nitrite Negative (NEGATIVE) Urine Bilirubin Negative (NEGATIVE) Urine Urobilinogen 2.0 H (0.2) EU/dL Ur Leukocyte Esterase Negative (NEGATIVE) 10/29/20 10/29/20 10/29/20 Range/Units 07:00 07:00 07:00 WBC 2.6 L (4.0-10.0) x10^3/uL RBC 5.23 (4.5-6.0) x10^6/uL Hgb 15.8 (14.0-18.0) g/dL Hct 45.6 (40.0-52.0) % MCV 87.2 (78.0-93.0) fL MCH 30.2 (26.0-32.0) pg MCHC 34.6 (32.0-36.0) g/dL RDW Coeff of John 13.8 (10.0-15.0) % Plt Count 90 L (130-400) x10^3/uL Add Manual Diff Yes Neutrophils % (Manual) 64 (50-80) % Lymphocytes % (Manual) 19 L (25-50) % Atypical Lymphs % 1 H (0) % Monocytes % (Manual) 16 H (2-11) % Platelet Estimate Decreased L PT 11.7 (9.9-12.5) SEC INR 1.0 L (2.0-3.5) Sodium 139 (136-145) mmol/L Potassium 4.7 (3.5-5.1) mmol/L Chloride 105 (98-107) mmol/L Carbon Dioxide 24 (21-32) mmol/L Anion Gap 14.7 (5-15) mmol/L BUN 23 H (7-18) mg/dL Creatinine 1.2 (0.70-1.30) mg/dL Est Cr Clr Drug Dosing TNP Estimated GFR (MDRD) > 60 Glucose 323 H (70-99) mg/dL POC Glucose (70-99) mg/dL Calcium 9.6 (8.5-10.1) mg/dL Corrected Calcium 11.0 H (8.5-10.1) mg/dL Ferritin (26-388) ng/mL Total Bilirubin 0.8 (0.2-1.0) mg/dL AST 58 H (15-37) U/L ALT 60 (16-63) U/L Alkaline Phosphatase 102 (46-116) U/L Lactate Dehydrogenase 326 H (85-227) U/L C-Reactive Protein 10.8 H (<=0.9) mg/dL Total Protein 6.4 (6.4-8.2) g/dL Albumin 2.3 L (3.4-5.0) g/dL Globulin 4.1 Albumin/Globulin Ratio 0.56 Lipase 2794 H (73-393) U/L Procalcitonin ng/mL Urine Color (YELLOW) Urine Appearance (CLEAR) Urine pH (5.0-8.0) Ur Specific [place] Urine Protein (NEGATIVE) mg/dL Urine Glucose (UA) (NEGATIVE) mg/dL Urine Ketones (NEGATIVE) mg/dL Urine Occult Blood (NEGATIVE) Urine Nitrite (NEGATIVE) Urine Bilirubin (NEGATIVE) Urine Urobilinogen (0.2) EU/dL Ur Leukocyte Esterase (NEGATIVE) 10/29/20 Range/Units 07:00 WBC (4.0-10.0) x10^3/uL RBC (4.5-6.0) x10^6/uL Hgb (14.0-18.0) g/dL Hct (40.0-52.0) % MCV (78.0-93.0) fL MCH (26.0-32.0) pg MCHC (32.0-36.0) g/dL RDW Coeff of John (10.0-15.0) % Plt Count (130-400) x10^3/uL Add Manual Diff Neutrophils % (Manual) (50-80) % Lymphocytes % (Manual) (25-50) % Atypical Lymphs % (0) % Monocytes % (Manual) (2-11) % Platelet Estimate PT (9.9-12.5) SEC INR (2.0-3.5) Sodium (136-145) mmol/L Potassium (3.5-5.1) mmol/L Chloride (98-107) mmol/L Carbon Dioxide (21-32) mmol/L Anion Gap (5-15) mmol/L BUN (7-18) mg/dL Creatinine (0.70-1.30) mg/dL Est Cr Clr Drug Dosing Estimated GFR (MDRD) Glucose (70-99) mg/dL POC Glucose (70-99) mg/dL Calcium (8.5-10.1) mg/dL Corrected Calcium (8.5-10.1) mg/dL Ferritin 790 H (26-388) ng/mL Total Bilirubin (0.2-1.0) mg/dL AST (15-37) U/L ALT (16-63) U/L Alkaline Phosphatase (46-116) U/L Lactate Dehydrogenase (85-227) U/L C-Reactive Protein (<=0.9) mg/dL Total Protein (6.4-8.2) g/dL Albumin (3.4-5.0) g/dL Globulin Albumin/Globulin Ratio Lipase (73-393) U/L Procalcitonin ng/mL Urine Color (YELLOW) Urine Appearance (CLEAR) Urine pH (5.0-8.0) Ur Specific [place] Urine Protein (NEGATIVE) mg/dL Urine Glucose (UA) (NEGATIVE) mg/dL Urine Ketones (NEGATIVE) mg/dL Urine Occult Blood (NEGATIVE) Urine Nitrite (NEGATIVE) Urine Bilirubin (NEGATIVE) Urine Urobilinogen (0.2) EU/dL Ur Leukocyte Esterase (NEGATIVE) Med Orders - Current: Current Medications Cyclobenzaprine HCl (Cyclobenzaprine 10 Mg Tab) 5 mg PO Q8H PRN PRN Reason: Pain Last Admin: 10/28/20 09:49 Dose: 5 mg Documented by: Dexamethasone 2 mg/ (Dexamethasone 4 mg) 6 mg PO DAILY [facility] Last Admin: 10/29/20 07:50 Dose: 6 mg Documented by: Enoxaparin Sodium (Enoxaparin 40 Mg/0.4 Ml Syringe) 40 mg SUBCUT Q24H [facility] Last Admin: 10/29/20 07:50 Dose: 40 mg Documented by: Ondansetron HCl (Ondansetron 4 Mg/2 Ml Sdv) 4 mg IVPUSH Q8H PRN PRN Reason: Nausea Sodium Chloride (Sodium Chloride 0.9% 10 Ml Syringe) 10 ml FLUSH ASDIRECTED PRN PRN Reason: Keep Vein Open Last Admin: 10/28/20 20:21 Dose: 10 ml Documented by: Discontinued Medications Dexamethasone 2 mg/ (Dexamethasone 4 mg) 6 mg PO ONETIME ONE Stop: 10/27/20 19:34 Last Admin: 10/28/20 00:16 Dose: Not Given Documented by: Lactated Ringer's (Ringers, Lactated) 1,000 mls @ 999 mls/hr IV ONETIME ONE Stop: 10/27/20 16:47 Last Admin: 10/27/20 16:02 Dose: 999 mls/hr Documented by: Lactated Ringer's (Ringers, Lactated) 1,000 mls @ 250 mls/hr IV ASDIRECTED [facility] Last Admin: 10/27/20 17:21 Dose: 250 mls/hr Documented by: Remdesivir 200 mg/ Sodium (Chloride) 250 mls @ 250 mls/hr IV ONETIME ONE Stop: 10/28/20 09:46 Last Admin: 10/28/20 09:36 Dose: 250 mls/hr Documented by: Iopamidol (Iopamidol 612 Mg/Ml 100 Ml Bottle) 100 ml IVPUSH ONETIME ONE Stop: 10/27/20 19:55 Last Admin: 10/27/20 19:54 Dose: 100 ml Documented by: Ondansetron HCl (Ondansetron 4 Mg/2 Ml Sdv) 4 mg IV ONETIME ONE Stop: 10/27/20 15:48 Last Admin: 10/27/20 16:04 Dose: 4 mg Documented by: - Exam General: Alert, Oriented, Cooperative, No Acute Distress HEENT: Mucous Membr. Moist/[place] Neck: Supple, Trachea Midline, No Thyromegaly. No: Lymphadenopathy Lungs: Clear to Auscultation, Normal Respiratory Effort Cardiovascular: Regular Rate, Regular Rhythm, No Murmurs GI/Abdominal Exam: Normal Bowel Sounds, Soft, Non-Tender, No Organomegaly, No Distention, No Mass Extremities: Normal Inspection, Non-Tender, No Pedal Edema, Normal Capillary Refill Peripheral Pulses: 2+: Radial (L), Radial (R) Skin: Warm, Dry, Intact Neurological: No New Focal Deficit - Patient Data Lab Results Last 24 hrs: Laboratory Results - last 24 hr 10/27/20 10/29/20 10/29/20 Range/Units 15:54 00:20 06:55 WBC (4.0-10.0) x10^3/uL RBC (4.5-6.0) x10^6/uL Hgb (14.0-18.0) g/dL Hct (40.0-52.0) % MCV (78.0-93.0) fL MCH (26.0-32.0) pg MCHC (32.0-36.0) g/dL RDW Coeff of John (10.0-15.0) % Plt Count (130-400) x10^3/uL Add Manual Diff Neutrophils % (Manual) (50-80) % Lymphocytes % (Manual) (25-50) % Atypical Lymphs % (0) % Monocytes % (Manual) (2-11) % Platelet Estimate PT (9.9-12.5) SEC INR (2.0-3.5) Sodium (136-145) mmol/L Potassium (3.5-5.1) mmol/L Chloride (98-107) mmol/L Carbon Dioxide (21-32) mmol/L Anion Gap (5-15) mmol/L BUN (7-18) mg/dL Creatinine (0.70-1.30) mg/dL Est Cr Clr Drug Dosing Estimated GFR (MDRD) Glucose (70-99) mg/dL POC Glucose 292 H (70-99) mg/dL Calcium (8.5-10.1) mg/dL Corrected Calcium (8.5-10.1) mg/dL Ferritin (26-388) ng/mL Total Bilirubin (0.2-1.0) mg/dL AST (15-37) U/L ALT (16-63) U/L Alkaline Phosphatase (46-116) U/L Lactate Dehydrogenase (85-227) U/L C-Reactive Protein (<=0.9) mg/dL Total Protein (6.4-8.2) g/dL Albumin (3.4-5.0) g/dL Globulin Albumin/Globulin Ratio Lipase (73-393) U/L Procalcitonin 0.18 H ng/mL Urine Color Yellow (YELLOW) Urine Appearance Clear (CLEAR) Urine pH 5.5 (5.0-8.0) Ur Specific [place] 1.015 Urine Protein Negative (NEGATIVE) mg/dL Urine Glucose (UA) 500 H (NEGATIVE) mg/dL Urine Ketones Trace H (NEGATIVE) mg/dL Urine Occult Blood Negative (NEGATIVE) Urine Nitrite Negative (NEGATIVE) Urine Bilirubin Negative (NEGATIVE) Urine Urobilinogen 2.0 H (0.2) EU/dL Ur Leukocyte Esterase Negative (NEGATIVE) 10/29/20 10/29/20 10/29/20 Range/Units 07:00 07:00 07:00 WBC 2.6 L (4.0-10.0) x10^3/uL RBC 5.23 (4.5-6.0) x10^6/uL Hgb 15.8 (14.0-18.0) g/dL Hct 45.6 (40.0-52.0) % MCV 87.2 (78.0-93.0) fL MCH 30.2 (26.0-32.0) pg MCHC 34.6 (32.0-36.0) g/dL RDW Coeff of John 13.8 (10.0-15.0) % Plt Count 90 L (130-400) x10^3/uL Add Manual Diff Yes Neutrophils % (Manual) 64 (50-80) % Lymphocytes % (Manual) 19 L (25-50) % Atypical Lymphs % 1 H (0) % Monocytes % (Manual) 16 H (2-11) % Platelet Estimate Decreased L PT 11.7 (9.9-12.5) SEC INR 1.0 L (2.0-3.5) Sodium 139 (136-145) mmol/L Potassium 4.7 (3.5-5.1) mmol/L Chloride 105 (98-107) mmol/L Carbon Dioxide 24 (21-32) mmol/L Anion Gap 14.7 (5-15) mmol/L BUN 23 H (7-18) mg/dL Creatinine 1.2 (0.70-1.30) mg/dL Est Cr Clr Drug Dosing TNP Estimated GFR (MDRD) > 60 Glucose 323 H (70-99) mg/dL POC Glucose (70-99) mg/dL Calcium 9.6 (8.5-10.1) mg/dL Corrected Calcium 11.0 H (8.5-10.1) mg/dL Ferritin (26-388) ng/mL Total Bilirubin 0.8 (0.2-1.0) mg/dL AST 58 H (15-37) U/L ALT 60 (16-63) U/L Alkaline Phosphatase 102 (46-116) U/L Lactate Dehydrogenase 326 H (85-227) U/L C-Reactive Protein 10.8 H (<=0.9) mg/dL Total Protein 6.4 (6.4-8.2) g/dL Albumin 2.3 L (3.4-5.0) g/dL Globulin 4.1 Albumin/Globulin Ratio 0.56 Lipase 2794 H (73-393) U/L Procalcitonin ng/mL Urine Color (YELLOW) Urine Appearance (CLEAR) Urine pH (5.0-8.0) Ur Specific [place] Urine Protein (NEGATIVE) mg/dL Urine Glucose (UA) (NEGATIVE) mg/dL Urine Ketones (NEGATIVE) mg/dL Urine Occult Blood (NEGATIVE) Urine Nitrite (NEGATIVE) Urine Bilirubin (NEGATIVE) Urine Urobilinogen (0.2) EU/dL Ur Leukocyte Esterase (NEGATIVE) 10/29/20 Range/Units 07:00 WBC (4.0-10.0) x10^3/uL RBC (4.5-6.0) x10^6/uL Hgb (14.0-18.0) g/dL Hct (40.0-52.0) % MCV (78.0-93.0) fL MCH (26.0-32.0) pg MCHC (32.0-36.0) g/dL RDW Coeff of John (10.0-15.0) % Plt Count (130-400) x10^3/uL Add Manual Diff Neutrophils % (Manual) (50-80) % Lymphocytes % (Manual) (25-50) % Atypical Lymphs % (0) % Monocytes % (Manual) (2-11) % Platelet Estimate PT (9.9-12.5) SEC INR (2.0-3.5) Sodium (136-145) mmol/L Potassium (3.5-5.1) mmol/L Chloride (98-107) mmol/L Carbon Dioxide (21-32) mmol/L Anion Gap (5-15) mmol/L BUN (7-18) mg/dL Creatinine (0.70-1.30) mg/dL Est Cr Clr Drug Dosing Estimated GFR (MDRD) Glucose (70-99) mg/dL POC Glucose (70-99) mg/dL Calcium (8.5-10.1) mg/dL Corrected Calcium (8.5-10.1) mg/dL Ferritin 790 H (26-388) ng/mL Total Bilirubin (0.2-1.0) mg/dL AST (15-37) U/L ALT (16-63) U/L Alkaline Phosphatase (46-116) U/L Lactate Dehydrogenase (85-227) U/L C-Reactive Protein (<=0.9) mg/dL Total Protein (6.4-8.2) g/dL Albumin (3.4-5.0) g/dL Globulin Albumin/Globulin Ratio Lipase (73-393) U/L Procalcitonin ng/mL Urine Color (YELLOW) Urine Appearance (CLEAR) Urine pH (5.0-8.0) Ur Specific [place] Urine Protein (NEGATIVE) mg/dL Urine Glucose (UA) (NEGATIVE) mg/dL Urine Ketones (NEGATIVE) mg/dL Urine Occult Blood (NEGATIVE) Urine Nitrite (NEGATIVE) Urine Bilirubin (NEGATIVE) Urine Urobilinogen (0.2) EU/dL Ur Leukocyte Esterase (NEGATIVE) Result Diagrams: 10/29/20 07:00 10/29/20 07:00 Sepsis Event Note - Evaluation Sepsis Screening Result: No Definite Risk - Focused Exam Vital Signs: Vital Signs Temp Pulse Resp BP Pulse Ox Pulse Ox 10/29/20 06:10 36.7 C 65 20 104/56 L 89 L 10/29/20 02:00 36.8 C 67 20 113/71 90 L 10/28/20 22:05 91 L 10/28/20 22:00 36.6 C 73 22 H 143/75 H 92 L 10/28/20 21:20 90 L - Problem List & Annotations (1) Respiratory failure SNOMED Code(s): 624515874 Code(s): J96.90 - RESPIRATORY FAILURE, UNSP, UNSP W HYPOXIA OR HYPERCAPNIA Status: Acute Current Visit: Yes Qualifiers: Chronicity: acute Respiratory failure complication: hypoxia Qualified Code(s): J96.01 - Acute respiratory failure with hypoxia (2) COVID-19 SNOMED Code(s): 994716206 Code(s): U07.1 - COVID-19 Status: Acute Current Visit: Yes (3) Pancreatitis SNOMED Code(s): 94661332 Code(s): K85.90 - ACUTE PANCREATITIS WITHOUT NECROSIS OR INFECTION, UNSP Status: Acute Current Visit: Yes Qualifiers: Chronicity: acute Pancreatitis type: unspecified pancreatitis type Acute pancreatitis complication: unspecified Qualified Code(s): K85.90 - Acute pancreatitis without necrosis or infection, unspecified (4) Acute kidney injury SNOMED Code(s): 58373879, 25419989 Code(s): N17.9 - ACUTE KIDNEY FAILURE, UNSPECIFIED Status: Acute Current Visit: Yes Annotation/Comment:: Most likely due to outlet obstruction (5) Leukopenia SNOMED Code(s): 78706605, 085328710 Code(s): D72.819 - DECREASED WHITE BLOOD CELL COUNT, UNSPECIFIED Status: Acute Current Visit: Yes Qualifiers: Leukopenia type: unspecified Qualified Code(s): D72.819 - Decreased white blood cell count, unspecified (6) Thrombocytopenia SNOMED Code(s): 635691940 Code(s): D69.6 - THROMBOCYTOPENIA, UNSPECIFIED Status: Acute Current Visit: Yes (7) Transaminitis SNOMED Code(s): 024523520, 666990701 Code(s): R74.01 - ELEVATION OF LEVELS OF LIVER TRANSAMINASE LEVELS Status: Acute Current Visit: Yes (8) Atrial fibrillation SNOMED Code(s): 43346341 Code(s): I48.91 - UNSPECIFIED ATRIAL FIBRILLATION Status: Chronic Current Visit: Yes (9) Diabetes SNOMED Code(s): 98390279 Code(s): E11.9 - TYPE 2 DIABETES MELLITUS WITHOUT COMPLICATIONS Status: Chronic Current Visit: Yes (10) Obesity SNOMED Code(s): 113468015, 059869370 Code(s): E66.9 - OBESITY, UNSPECIFIED Status: Chronic Current Visit: Yes (11) Cirrhosis SNOMED Code(s): 83823466 Code(s): K74.60 - UNSPECIFIED CIRRHOSIS OF LIVER Status: Chronic Current Visit: Yes - Problem List Review Problem List Initiated/Reviewed/Updated: Yes - My Orders Last 24 Hours: My Active Orders 10/28/20 08:23 Cyclobenzaprine [Flexeril] 5 mg PO Q8H PRN 10/28/20 08:45 Enoxaparin [Lovenox] 40 mg SUBCUT Q24H 10/28/20 Dinner Advance Diet Instructions [DIET] 10/28/20 23:35 Pulse Oximetry Continuous Monitoring [OM.PC] Routine 10/29/20 09:01 Blood Glucose Check, Bedside [RC] QIDACANDBED Dextrose 50% in Water 50 ml IV ASDIRECTED PRN Glucagon,Human Recombinant [GlucaGen] 1 mg IM ASDIRECTED PRN 10/29/20 09:15 Remdesivir 100 mg Sodium Chloride 0.9% [Normal Saline] 100 ml IV Q24H 10/29/20 12:00 Insulin Lispro [HumaLOG] See Protocol SUBCUT TIDMEALS 10/30/20 05:11 C-REACTIVE PROTEIN [CHEM] Routine CBC WITH AUTO DIFF [HEME] Routine COMPREHENSIVE METABOLIC PN,CMP [CHEM] Routine LIPASE [CHEM] Routine - Assessment Assessment:: 69 yo male admitted with COVID and pancreatitis. Feeling about the same this morning. Labs are all stable except lipase, which is worse again; clinically his pancreatitis is resolving. Is on 5L of O2 now but has been stable on this for 12 hours. - Plan Plan:: #1 Acute hypoxic respiratory failure, secondary to #2 #2 COVID-19 - Supplemental oxygen to maintain saturations >90%. - Patient will be on continuous pulse oximetry. - Liver enzymes improved today despite remdesivir yesterday. Therefore, will continue this with plan to complete the 5 day course. Liver labs daily. - Dexamethasone 6 mg PO daily. #3 Pancreatitis, resolving - Cause is COVID vs alcohol. - Lipase elevated on admission, improved yesterday, now worse today. Clinically he is doing better. - Therefore, continue to advance diet as tolerated. - Will continue to hold off on IV fluids unless something changes with his ability to eat/drink or with his labs. - Zofran PRN nausea. #4 MARIA, resolved - Likely secondary to dehydration/prerenal etiology. - Creatinine back to baseline as of 10/28. Stable today. - No further IV fluids unless recurrent issues. #5 Leukopenia #6 Thrombocytopenia - Both are acute and likely secondary to the COVID. - Recheck daily. Stable so far. #7 Transaminitis #8 Cirrhosis - Patient has a history of cirrhosis but has always had normal liver enzymes. - Elevation likely related to COVID vs pancreatitis. - Labs improved today. - He has already had an extensive evaluation with GI previously for alternative causes to obesity and alcohol. - Will plan to update u/s as an outpatient. #9 A-fib - Single episode during hospitalization in 2019. - Will monitor for recurrence during this hospitalization. - Was to do a zio patch but never completed this. - Will need to follow-up outpatient. #10 Diabetes - Patient has not been taking any medications for this. - Glucoses have been trending up while he has been on the dexamethasone. - Will add POC glucoses QIDACBED. - Will also do low dose insulin correction scale. #11 Obesity Patient will remain on acute today - status is guarded due to increased O2 requirements today but he really is overall stable. Given stability, no indication to transfer him to [facility] at this point; he agrees. We will assess this daily and have a low threshold for transfer if any deterioration in clinical status. See detailed plans above. Patient is on no home medications. Recheck labs in the am. Code status is full. Platelets remain stable and CrCl >30 - continue lovenox for VTE prophylaxis. Patient signed out to Dr. Ramsey to cover in my absence for the remainder of the week.
[2020-10-29] MEDS: REMDESIVIR 100 MG in Sodium Chloride 0.9% 100 ML IV SCH (09:50)
[2020-10-29] MEDS: Insulin Lispro 100 Units/ML 3 ML Vial SUBCUT SCH ×2 (12:48→17:23)
[2020-10-29] MEDS: Cyclobenzaprine 10 MG Tab PO PRN ×2 (13:00→21:07)
[2020-10-30 07:08] LABS: CHLORIDE,CL 103 mmol/L (98-107); SODIUM,NA 137 mmol/L (136-145)
[2020-10-30 07:10] LABS: ANION GAP 10.7 mmol/L (5-15)
[2020-10-30] MEDS: dexAMETHasone 2 MG, dexAMETHasone 4 MG PO SCH ×2 (09:24)
[2020-10-30] MEDS: Insulin Lispro 100 Units/ML 3 ML Vial SUBCUT SCH ×2 (09:25→12:17)
[2020-10-30] MEDS: REMDESIVIR 100 MG in Sodium Chloride 0.9% 100 ML IV SCH (09:25)
[2020-10-30] MEDS: Enoxaparin 40 MG/0.4 ML Syringe SUBCUT SCH (09:25)
[2020-10-30] MEDS: Sodium Chloride 0.9% 10 ML Syringe FLUSH PRN (09:26)
[2020-10-30] MEDS ORDERED: metFORMIN 500 MG Tab PO SCH (13:00)
--- NOTE | 2020-10-30 13:55 | PCM.PN ---
- General Info Date of Service: 10/30/20 Admission Dx/Problem (Free Text): Admission Diagnosis/Problem Admission Diagnosis/Problem Pancreatitis Subjective Update: Reece is a 70 yo male who is hospital day #4 admitted with COVID and pancreatitis. Patient continues to do okay. He did get a little more sleep last night. Does feel fatigued though all the time. He denies any real shortness of breath at baseline. Continues on 5 L of oxygen. He is continuing to advance his diet and is actually eating breakfast while I'm in the room today. No pain, fever, nausea, vomiting, changes in his bladder habits. He has not had a bowel movement in the number of days but he was not eating for a number of days prior to this either. States that he does not feel backed up. - Review of Systems General: Reports: Fatigue HEENT: Reports: No Symptoms Pulmonary: Reports: No Symptoms Cardiovascular: Reports: No Symptoms Gastrointestinal: Reports: No Symptoms Genitourinary: Reports: No Symptoms Musculoskeletal: Reports: No Symptoms Skin: Reports: No Symptoms Neurological: Reports: No Symptoms Psychiatric: Reports: No Symptoms - Patient Data Vitals - Most Recent: Last Vital Signs Temp 97.8 F 10/30/20 09:39 Pulse 69 10/30/20 09:39 Resp 20 10/30/20 09:39 BP 125/75 10/30/20 09:39 Pulse Ox 93 L 10/30/20 09:47 I&O - Last 24 Hours: Intake & Output 10/29/20 10/30/20 10/30/20 22:59 06:59 14:59 Intake Total 240 940 560 Output Total 500 550 Balance -260 390 560 Lab Results Last 24 Hours: Laboratory Results - last 24 hr 10/30/20 10/30/20 10/30/20 Range/Units 06:38 06:38 06:39 WBC 4.1 (4.0-10.0) x10^3/uL RBC 5.10 (4.5-6.0) x10^6/uL Hgb 15.3 (14.0-18.0) g/dL Hct 44.8 (40.0-52.0) % MCV 87.8 (78.0-93.0) fL MCH 30.0 (26.0-32.0) pg MCHC 34.2 (32.0-36.0) g/dL RDW Coeff of John 13.8 (10.0-15.0) % Plt Count 127 L (130-400) x10^3/uL Add Manual Diff Yes Neutrophils % (Manual) 65 (50-80) % Band Neutrophils % 3 (0-6) % Lymphocytes % (Manual) 15 L (25-50) % Atypical Lymphs % 2 H (0) % Monocytes % (Manual) 14 H (2-11) % Metamyelocytes % 1 H (0) % Platelet Estimate Decreased L Sodium 137 (136-145) mmol/L Potassium 5.7 H (3.5-5.1) mmol/L Chloride 103 (98-107) mmol/L Carbon Dioxide 29 (21-32) mmol/L Anion Gap 10.7 (5-15) mmol/L BUN 23 H (7-18) mg/dL Creatinine 1.3 (0.70-1.30) mg/dL Est Cr Clr Drug Dosing TNP Estimated GFR (MDRD) 55 Glucose 372 H (70-99) mg/dL POC Glucose 363 H (70-99) mg/dL Calcium 9.7 (8.5-10.1) mg/dL Corrected Calcium 11.0 H (8.5-10.1) mg/dL Total Bilirubin 0.8 (0.2-1.0) mg/dL AST 49 H (15-37) U/L ALT 50 (16-63) U/L Alkaline Phosphatase 105 (46-116) U/L C-Reactive Protein 4.8 H (<=0.9) mg/dL Total Protein 6.8 (6.4-8.2) g/dL Albumin 2.4 L (3.4-5.0) g/dL Globulin 4.4 Albumin/Globulin Ratio 0.55 Lipase 877 H (73-393) U/L 10/30/20 Range/Units 11:47 WBC (4.0-10.0) x10^3/uL RBC (4.5-6.0) x10^6/uL Hgb (14.0-18.0) g/dL Hct (40.0-52.0) % MCV (78.0-93.0) fL MCH (26.0-32.0) pg MCHC (32.0-36.0) g/dL RDW Coeff of John (10.0-15.0) % Plt Count (130-400) x10^3/uL Add Manual Diff Neutrophils % (Manual) (50-80) % Band Neutrophils % (0-6) % Lymphocytes % (Manual) (25-50) % Atypical Lymphs % (0) % Monocytes % (Manual) (2-11) % Metamyelocytes % (0) % Platelet Estimate Sodium (136-145) mmol/L Potassium (3.5-5.1) mmol/L Chloride (98-107) mmol/L Carbon Dioxide (21-32) mmol/L Anion Gap (5-15) mmol/L BUN (7-18) mg/dL Creatinine (0.70-1.30) mg/dL Est Cr Clr Drug Dosing Estimated GFR (MDRD) Glucose (70-99) mg/dL POC Glucose 395 H (70-99) mg/dL Calcium (8.5-10.1) mg/dL Corrected Calcium (8.5-10.1) mg/dL Total Bilirubin (0.2-1.0) mg/dL AST (15-37) U/L ALT (16-63) U/L Alkaline Phosphatase (46-116) U/L C-Reactive Protein (<=0.9) mg/dL Total Protein (6.4-8.2) g/dL Albumin (3.4-5.0) g/dL Globulin Albumin/Globulin Ratio Lipase (73-393) U/L Med Orders - Current: Current Medications Cyclobenzaprine HCl (Cyclobenzaprine 10 Mg Tab) 5 mg PO Q8H PRN PRN Reason: Pain Last Admin: 10/29/20 21:07 Dose: 5 mg Documented by: Dexamethasone 2 mg/ (Dexamethasone 4 mg) 6 mg PO DAILY [facility] Last Admin: 10/30/20 09:24 Dose: 6 mg Documented by: Dextrose/Water (50% Dextrose In Water 50 Ml Syringe) 50 ml IV ASDIRECTED PRN PRN Reason: Hypoglycemia Enoxaparin Sodium (Enoxaparin 40 Mg/0.4 Ml Syringe) 40 mg SUBCUT Q24H [facility] Last Admin: 10/30/20 09:25 Dose: 40 mg Documented by: Glucagon (Glucagon,Human Recombinant 1 Mg Vial) 1 mg IM ASDIRECTED PRN PRN Reason: Hypoglycemia Remdesivir 100 mg/ Sodium (Chloride) 100 mls @ 100 mls/hr IV Q24H [facility] Stop: 11/01/20 10:14 Last Admin: 10/30/20 09:25 Dose: 100 mls/hr Documented by: Metformin HCl (Metformin 500 Mg Tab) 1,000 mg PO DAILY [facility] Ondansetron HCl (Ondansetron 4 Mg/2 Ml Sdv) 4 mg IVPUSH Q8H PRN PRN Reason: Nausea Sodium Chloride (Sodium Chloride 0.9% 10 Ml Syringe) 10 ml FLUSH ASDIRECTED PRN PRN Reason: Keep Vein Open Last Admin: 10/30/20 09:26 Dose: 10 ml Documented by: Discontinued Medications Dexamethasone 2 mg/ (Dexamethasone 4 mg) 6 mg PO ONETIME ONE Stop: 10/27/20 19:34 Last Admin: 10/28/20 00:16 Dose: Not Given Documented by: Lactated Ringer's (Ringers, Lactated) 1,000 mls @ 999 mls/hr IV ONETIME ONE Stop: 10/27/20 16:47 Last Admin: 10/27/20 16:02 Dose: 999 mls/hr Documented by: Lactated Ringer's (Ringers, Lactated) 1,000 mls @ 250 mls/hr IV ASDIRECTED [facility] Last Admin: 10/27/20 17:21 Dose: 250 mls/hr Documented by: Remdesivir 200 mg/ Sodium (Chloride) 250 mls @ 250 mls/hr IV ONETIME ONE Stop: 10/28/20 09:46 Last Admin: 10/28/20 09:36 Dose: 250 mls/hr Documented by: Insulin Human Lispro (Insulin Lispro 100 Units/Ml 3 Ml Vial) 0 unit SUBCUT TIDMEALS [facility]; Protocol Last Admin: 10/30/20 12:17 Dose: Not Given Documented by: Iopamidol (Iopamidol 612 Mg/Ml 100 Ml Bottle) 100 ml IVPUSH ONETIME ONE Stop: 10/27/20 19:55 Last Admin: 10/27/20 19:54 Dose: 100 ml Documented by: Ondansetron HCl (Ondansetron 4 Mg/2 Ml Sdv) 4 mg IV ONETIME ONE Stop: 10/27/20 15:48 Last Admin: 10/27/20 16:04 Dose: 4 mg Documented by: - Exam Quality Assessment: Supplemental Oxygen (5L per NC) General: Alert, Oriented, Cooperative, No Acute Distress HEENT: EOMI, Mucous Membr. Moist/[place] Neck: Supple Lungs: Clear to Auscultation, Normal Respiratory Effort Cardiovascular: Regular Rate, Regular Rhythm GI/Abdominal Exam: Normal Bowel Sounds, Soft, Non-Tender Extremities: Non-Tender, No Pedal Edema Skin: Warm, Dry Neurological: No New Focal Deficit Psy/Mental Status: Alert, Normal Affect, Normal Mood - Patient Data Lab Results Last 24 hrs: Laboratory Results - last 24 hr 10/30/20 10/30/20 10/30/20 Range/Units 06:38 06:38 06:39 WBC 4.1 (4.0-10.0) x10^3/uL RBC 5.10 (4.5-6.0) x10^6/uL Hgb 15.3 (14.0-18.0) g/dL Hct 44.8 (40.0-52.0) % MCV 87.8 (78.0-93.0) fL MCH 30.0 (26.0-32.0) pg MCHC 34.2 (32.0-36.0) g/dL RDW Coeff of John 13.8 (10.0-15.0) % Plt Count 127 L (130-400) x10^3/uL Add Manual Diff Yes Neutrophils % (Manual) 65 (50-80) % Band Neutrophils % 3 (0-6) % Lymphocytes % (Manual) 15 L (25-50) % Atypical Lymphs % 2 H (0) % Monocytes % (Manual) 14 H (2-11) % Metamyelocytes % 1 H (0) % Platelet Estimate Decreased L Sodium 137 (136-145) mmol/L Potassium 5.7 H (3.5-5.1) mmol/L Chloride 103 (98-107) mmol/L Carbon Dioxide 29 (21-32) mmol/L Anion Gap 10.7 (5-15) mmol/L BUN 23 H (7-18) mg/dL Creatinine 1.3 (0.70-1.30) mg/dL Est Cr Clr Drug Dosing TNP Estimated GFR (MDRD) 55 Glucose 372 H (70-99) mg/dL POC Glucose 363 H (70-99) mg/dL Calcium 9.7 (8.5-10.1) mg/dL Corrected Calcium 11.0 H (8.5-10.1) mg/dL Total Bilirubin 0.8 (0.2-1.0) mg/dL AST 49 H (15-37) U/L ALT 50 (16-63) U/L Alkaline Phosphatase 105 (46-116) U/L C-Reactive Protein 4.8 H (<=0.9) mg/dL Total Protein 6.8 (6.4-8.2) g/dL Albumin 2.4 L (3.4-5.0) g/dL Globulin 4.4 Albumin/Globulin Ratio 0.55 Lipase 877 H (73-393) U/L 10/30/20 Range/Units 11:47 WBC (4.0-10.0) x10^3/uL RBC (4.5-6.0) x10^6/uL Hgb (14.0-18.0) g/dL Hct (40.0-52.0) % MCV (78.0-93.0) fL MCH (26.0-32.0) pg MCHC (32.0-36.0) g/dL RDW Coeff of John (10.0-15.0) % Plt Count (130-400) x10^3/uL Add Manual Diff Neutrophils % (Manual) (50-80) % Band Neutrophils % (0-6) % Lymphocytes % (Manual) (25-50) % Atypical Lymphs % (0) % Monocytes % (Manual) (2-11) % Metamyelocytes % (0) % Platelet Estimate Sodium (136-145) mmol/L Potassium (3.5-5.1) mmol/L Chloride (98-107) mmol/L Carbon Dioxide (21-32) mmol/L Anion Gap (5-15) mmol/L BUN (7-18) mg/dL Creatinine (0.70-1.30) mg/dL Est Cr Clr Drug Dosing Estimated GFR (MDRD) Glucose (70-99) mg/dL POC Glucose 395 H (70-99) mg/dL Calcium (8.5-10.1) mg/dL Corrected Calcium (8.5-10.1) mg/dL Total Bilirubin (0.2-1.0) mg/dL AST (15-37) U/L ALT (16-63) U/L Alkaline Phosphatase (46-116) U/L C-Reactive Protein (<=0.9) mg/dL Total Protein (6.4-8.2) g/dL Albumin (3.4-5.0) g/dL Globulin Albumin/Globulin Ratio Lipase (73-393) U/L Result Diagrams: 10/30/20 06:38 10/30/20 06:38 Sepsis Event Note - Evaluation Sepsis Screening Result: No Definite Risk - Focused Exam Vital Signs: Vital Signs Temp Pulse Resp BP BP Pulse Ox Pulse Ox 10/30/20 09:47 93 L 10/30/20 09:41 93 L 10/30/20 09:39 97.8 F 69 20 125/75 92 L 10/30/20 06:00 98 F 62 20 120/70 93 L 10/30/20 02:00 98 F 61 20 112/69 87 L - Problem List & Annotations (1) COVID-19 SNOMED Code(s): 724231967 Code(s): U07.1 - COVID-19 Status: Acute Current Visit: Yes (2) Pancreatitis SNOMED Code(s): 79715773 Code(s): K85.90 - ACUTE PANCREATITIS WITHOUT NECROSIS OR INFECTION, UNSP Status: Acute Current Visit: Yes Qualifiers: Chronicity: acute Pancreatitis type: unspecified pancreatitis type Acute pancreatitis complication: unspecified Qualified Code(s): K85.90 - Acute pancreatitis without necrosis or infection, unspecified (3) Pneumonia due to COVID-19 virus SNOMED Code(s): 651876082718223848 Code(s): U07.1 - COVID-19; J12.82 - PNEUMONIA DUE TO CORONAVIRUS DISEASE 2019 Status: Acute Current Visit: Yes - Problem List Review Problem List Initiated/Reviewed/Updated: Yes - My Orders Last 24 Hours: My Active Orders 10/30/20 13:00 metFORMIN [Glucophage] 1,000 mg PO DAILY 10/30/20 14:00 POTASSIUM,K [CHEM] Routine 10/31/20 06:00 CBC WITH AUTO DIFF [HEME] Routine COMPREHENSIVE METABOLIC PN,CMP [CHEM] Routine - Assessment Assessment:: Reece is a 70 yo male admitted with COVID and pancreatitis. Stable from the previous day. Labs with improvements in both LFTs and lipase. Continues on 5L O2, stable. - Plan Plan:: #1 Acute hypoxic respiratory failure, secondary to #2 #2 COVID-19 - Supplemental oxygen to maintain saturations >90%. - Continuous pulse oximetry. - Remdesivir: continue this with plan to complete the 5 day course. - Liver labs daily. - Dexamethasone 6 mg PO daily. #3 Pancreatitis, resolving - Cause is COVID vs alcohol. - Lipase elevated on admission, some wax/wane throughout admission, improved today - Continue to advance diet as tolerated. - Will continue to hold off on IV fluids unless something changes with his ability to eat/drink or with his labs. - Zofran PRN nausea. #4 Hyperkalemia - Mild elevation in K today - Recheck this afternoon and in the am #5 MARIA - resolved - Likely secondary to dehydration/prerenal etiology. - Creatinine stable #5 Leukopenia - resolved #6 Thrombocytopenia - Both are acute and likely secondary to the COVID. - Recheck daily. Stable so far. #7 Transaminitis #8 Cirrhosis - Patient has a history of cirrhosis but has always had normal liver enzymes. - Elevation likely related to COVID vs pancreatitis. - Labs continue to improve - He has already had an extensive evaluation with GI previously for alternative causes to obesity and alcohol. - Will plan to update u/s as an outpatient. #9 A-fib - Single episode during hospitalization in 2019. - Will monitor for recurrence during this hospitalization. - Was to do a zio patch but never completed this. - Will need to follow-up outpatient. #10 Diabetes - Patient has not been taking any medications for this. - Glucoses have been trending up while he has been on the dexamethasone. - Will add POC glucoses QIDACBED. - Patient refusing insulin stating "this almost killed me in the past" - With renal stability will initiate metformin 1000mg XR daily #11 Obesity Patient is on no home medications. Recheck labs in the am. Code status is full. Platelets remain stable and CrCl >30 - continue lovenox for VTE prophylaxis. Disposition: Patient will remain on acute today - status is guarded but he is maintaining on 5L at this time and is overall stable from the previous 24 hours. Again, no indication to transfer him to [facility] at this point; he agrees. We will assess this daily and have a low threshold for transfer if any deterioration in clinical status.
[2020-10-30] MEDS: metFORMIN 500 MG Tab PO SCH (18:40)
[2020-10-31] MEDS ORDERED: metFORMIN 500 MG Tab PO SCH (08:00)
[2020-10-31 08:26] LABS: CHLORIDE,CL 103 mmol/L (98-107); SODIUM,NA 137 mmol/L (136-145)
[2020-10-31 08:27] LABS: ANION GAP 10.2 mmol/L (5-15)
[2020-10-31] MEDS: Enoxaparin 40 MG/0.4 ML Syringe SUBCUT SCH (08:32)
[2020-10-31] MEDS: REMDESIVIR 100 MG in Sodium Chloride 0.9% 100 ML IV SCH (08:33)
[2020-10-31] MEDS: dexAMETHasone 2 MG, dexAMETHasone 4 MG PO SCH ×2 (08:33)
[2020-10-31] MEDS: Sodium Chloride 0.9% 10 ML Syringe FLUSH PRN (08:33)
[2020-10-31] MEDS: metFORMIN 500 MG Tab PO SCH ×2 (08:33→18:06)
[2020-10-31] MEDS: Ascorbic Acid 500 MG Tab PO SCH (10:45)
[2020-10-31] MEDS: Cholecalciferol (Vitamin D3) 25 MCG Tab PO SCH (10:45)
[2020-10-31] MEDS: Zinc Sulfate 220 MG Cap PO SCH (10:45)
--- NOTE | 2020-10-31 13:41 | PN ---
Progress Note for KACEY HOOVER Date: 10/31/2020 Room #: [id number] CHIEF COMPLAINT: Nausea and vomiting. SUBJECTIVE: Hospital day #4 for a 70-year-old male patient who was admitted on 10/27/2020. The patient states today that he is feeling a little bit better. He still feels weak. The patient has an intermittent dry cough. The patient denies any shortness of breath. The patient has not had any headaches, dizziness, or lightheadedness. The patient denies any chest pain or palpitations. No leg swelling. The patient has some mild dyspnea on exertion. The patient denies any abdominal pain. No nausea or vomiting. The patient continues on oxygen to keep the saturations greater than 90%. The patient denies any problems with urination or bowel movements. Appetite has been adequate. Overall, the patient states he feels he is getting better. PHYSICAL EXAMINATION: Vital Signs: Temperature 97.7, pulse 103, blood pressure 130/75, respiratory rate 18, oxygen saturation 94% on 5 L. Skin: Intact, warm, and dry. Respiratory: Lungs are decreased in the bases, but clear throughout. Cardiovascular: Regular rate and rhythm, no murmur. Abdomen: Obese. Soft and nontender. Bowel sounds are hypoactive x4. Neurologic: The patient is alert. The patient is oriented to person, place, and time. No focal neurological deficits. General: The patient does not appear to be in any acute distress. The patient is cooperative. The patient is alert. LABORATORY DATA: 1. CBC: White blood cell count 5.3, hemoglobin 16.9, hematocrit 49.5, platelets 99,000. 2. CMP: Sodium 137, potassium 5.2, chloride 103, CO2 of 29, anion gap 10.2, BUN 24, creatinine 1.1, GFR > 60, glucose 260, calcium 10.3, AST 48, ALT 57, alkaline phosphatase 106, total protein 7.0, albumin 2.6. ASSESSMENT: 1. Acute respiratory failure secondary to coronavirus disease 2019 infection. 2. Viral Pneumonia secondary to COVID-19. 3. Acute Pancreatitis. 4. Acute kidney injury. 5. Leukopenia. 6. Thrombocytopenia. 7. Transaminitis. 8. Atrial fibrillation. 9. Diabetes. 10.Obesity. 11.Cirrhosis. PLAN: Hospital day #4 for a 70-year-old male patient who was admitted for the above diagnoses. We will start the patient on vitamin D, vitamin C, and zinc. Continue to wean oxygen for oxygen saturations greater than 90%. Continue on Decadron and Remdesivir. Encourage the patient to ambulate in the room as much as possible. No changes with any other medications. The patient has continued to have elevated blood sugars and he does refuse subcu insulin, therefore we will increase his metformin to 1000 mg twice daily. Suspect blood sugars will improve once the patient is off the Decadron. The patient is a full code 1. The patient does not wish to transfer to a higher level of care should the need arise. We will recheck laboratory work tomorrow morning. Anticipate an acute admission for an additional 2 to 3 days at least. TB: 10/31/2020 11:08:04 MODL: 10/31/2020 13:33:30 /[id number] MTDD
[2020-11-01 08:07] LABS: ANION GAP 12.5 mmol/L (5-15); CHLORIDE,CL 103 mmol/L (98-107); SODIUM,NA 137 mmol/L (136-145)
[2020-11-01] MEDS: metFORMIN 500 MG Tab PO SCH ×2 (08:28→17:51)
[2020-11-01] MEDS: dexAMETHasone 2 MG, dexAMETHasone 4 MG PO SCH ×2 (08:28)
[2020-11-01] MEDS: Ascorbic Acid 500 MG Tab PO SCH (08:28)
[2020-11-01] MEDS: Cholecalciferol (Vitamin D3) 25 MCG Tab PO SCH (08:28)
[2020-11-01] MEDS: Zinc Sulfate 220 MG Cap PO SCH (08:28)
[2020-11-01] MEDS: Sodium Chloride 0.9% 10 ML Syringe FLUSH PRN (08:29)
[2020-11-01] MEDS: REMDESIVIR 100 MG in Sodium Chloride 0.9% 100 ML IV SCH (08:29)
[2020-11-01] MEDS: Enoxaparin 40 MG/0.4 ML Syringe SUBCUT SCH (08:29)
[2020-11-01] MEDS ORDERED: Acetaminophen 325 MG Tab PO PRN (20:19)
--- NOTE | 2020-11-01 21:03 | PN ---
Progress Note for KACEY HOOVER Date: 11/01/2020 Room #: [id number] CHIEF COMPLAINT: Nausea and vomiting. SUBJECTIVE: Hospital day #5 for a 70-year-old male patient, who was admitted on 10/27/2020 for COVID-19. The patient states today he is feeling a little bit more tired. He feels weaker. The patient states that he has had an intermittent dry cough. The patient does not feel short of breath. The patient continues to require oxygen to keep his saturations greater than 90%. The patient has not had any headache, dizziness, or lightheadedness. The patient denies any chest pain or palpitations. No leg swelling. The patient denies any abdominal pain. No nausea, vomiting, or diarrhea. The patient denies any chills. He states he feels hot on and off at times. No issues with urination or bowel movements. PHYSICAL EXAMINATION: Vital Signs: Temperature 97.8, pulse 73, blood pressure 112/73, respiratory rate 20, and oxygen saturation 90% on 3 L. Skin: Intact, warm and dry. Respiratory: Lungs are decreased in the bases, but clear throughout. Abdomen: Obese, soft and nontender. Bowel sounds are hypoactive x4. Cardiovascular: Regular rate and rhythm, no murmur. Neurologic: The patient is alert. The patient is oriented to person, place, and time. No focal neurological deficits. General: The patient does not appear to be in any acute distress. The patient is cooperative. The patient is alert. LABORATORY STUDIES: 1. CBC: White blood cell count 5.0, hemoglobin 15.0, hematocrit 45.8, and platelets 124,000. 2. BMP: Sodium 137, potassium 4.5, chloride 103, CO2 of 26, anion gap 12.5, BUN 24, creatinine 1.0, GFR greater than 60, glucose 263, calcium 10.2. ASSESSMENT: 1. Acute respiratory failure secondary to coronavirus disease 2019 infection. 2. Viral pneumonia secondary to coronavirus disease 2019. 3. Acute pancreatitis, improving. 4. Acute kidney injury, resolved. 5. Leukopenia. 6. Thrombocytopenia, improving. 7. Transaminitis. 8. Atrial fibrillation. 9. Diabetes. 10.Obesity. 11.Cirrhosis. PLAN: Hospital day #5 for a 70-year-old male patient, who was admitted to the acute care floor at [facility] for the above diagnoses. We will continue the patient on oral vitamin D, vitamin C, and zinc. The patient will continue on oxygen therapy to keep saturations greater than 90%. The patient will continue on Decadron and remdesivir. No changes with any other medications. The patient's metformin was changed to 1000 mg b.i.d. yesterday; however, blood sugars remain elevated secondary to Decadron. The patient continues to refuse insulin therapy today. The patient is a full code 1. The patient does not wish to transfer to a higher level of care should the need arise. Recheck laboratory work tomorrow morning. If the patient continues to wean off oxygen, I anticipate a discharge home in the next 1 to 2 days. The patient will remain on acute status due to oxygen needs and IV antiviral therapy. The patient's daughter, Taina, was updated with the patient's status today. All questions were answered. TB: 11/01/2020 20:41:29 MODL: 11/01/2020 20:57:05 /[id number]
[2020-11-02] MEDS: Ascorbic Acid 500 MG Tab PO SCH (07:52)
[2020-11-02] MEDS: Enoxaparin 40 MG/0.4 ML Syringe SUBCUT SCH (07:52)
[2020-11-02] MEDS: Cholecalciferol (Vitamin D3) 25 MCG Tab PO SCH (07:52)
[2020-11-02] MEDS: metFORMIN 500 MG Tab PO SCH ×2 (07:53→17:41)
[2020-11-02] MEDS: Zinc Sulfate 220 MG Cap PO SCH (07:53)
[2020-11-02] MEDS: dexAMETHasone 2 MG, dexAMETHasone 4 MG PO SCH ×2 (07:53)
[2020-11-02 08:21] LABS: ANION GAP 12.8 mmol/L (5-15); CHLORIDE,CL 100 mmol/L (98-107); SODIUM,NA 134 mmol/L (136-145)
--- NOTE | 2020-11-02 11:18 | PN ---
Progress Note for KACEY HOOVER Date: 11/02/2020 Room #: [id number] CHIEF COMPLAINT: Nausea and vomiting. SUBJECTIVE: Hospital day #6 for a 70-year-old male patient who was admitted on 10/27/2020 for COVID-19. The patient states he is feeling confused this morning. According to nursing staff, the patient was demanding to leave AMA around 5 a.m. this morning. The patient's daughter was contacted and the patient agreed to stay. The patient states this morning, he is feeling fatigued as well. The patient denies any cough. He does not feel short of breath. The patient continues to require oxygen at 3 L to keep his saturations 90% or greater. The patient denies any chest pain or palpitations. No leg swelling. No abdominal pain. The patient denies any nausea, vomiting, or diarrhea. No issues with urination or bowel movements. OBJECTIVE: Vital Signs: Temperature 97.9, pulse 84, blood pressure 125/78, respiratory rate 16, oxygen saturation 93% on 2 L. Skin: Intact, warm, and dry. Respiratory: Lungs are decreased in the bases, but clear throughout. Abdomen: Obese, soft and nontender. Bowel sounds are hypoactive x4. Cardiovascular: Regular rate and rhythm, no murmur. Neurologic: The patient is alert. The patient is disoriented to place and time. General: The patient does not appear to be in any acute distress. The patient is cooperative. The patient is alert. LABORATORY STUDIES: 1. CBC: White blood cell count 5.0, hemoglobin 15.9, hematocrit 46.3, platelets 83,000. 2. BMP: Sodium 134, potassium 4.8, chloride 100, CO2 of 26, anion gap 12.8, BUN 25, creatinine 1.2, GFR greater than 60, glucose 353, calcium 10.5. ASSESSMENT: 1. Acute respiratory failure secondary to coronavirus disease 2019. 2. Viral pneumonia secondary to coronavirus disease 2019. 3. Acute pancreatitis, improving. 4. Acute kidney injury, resolved. 5. Leukopenia. 6. Thrombocytopenia, improving. 7. Transaminitis. 8. Atrial fibrillation. 9. Diabetes. 10.Obesity. 11.Cirrhosis. PLAN: Hospital day #6 for a 70-year-old male patient who was admitted to [facility] for the above diagnoses. The patient completed his remdesivir last evening. We will continue with Decadron. Continue all other medications the same. The patient will continue on acute cares as he requires oxygen to keep his sats greater than 90%. Continue to monitor blood sugars. May consider adding a second agent if blood sugars continue to stay elevated despite the use of Decadron. The patient is a code 1. Anticipate discharge in the next one to two days. Did have issues with patient wanting to leave AMA early this morning. Conversation held with patient regarding his current health status and the need to continue with current cares and medications. Patient verbalized understanding. Labs were ordered for tomorrow morning. TB: 11/02/2020 10:46:34 MODL: 11/02/2020 11:10:47 /[id number] JASON
[2020-11-03 07:27] LABS: CHLORIDE,CL 101 mmol/L (98-107); SODIUM,NA 136 mmol/L (136-145)
[2020-11-03 07:38] LABS: ANION GAP 9.5 mmol/L (5-15)
--- NOTE | 2020-11-03 08:27 | PCM.PN ---
- General Info Date of Service: 11/03/20 Subjective Update: 70 yo male hospital day #8 admitted with COVID and pancreatitis. Patient states he is feeling much better this morning. He just feels better overall and has more energy. He is only coughing if he drinks his water too fast. He denies any shortness of breath. Appetite is good and he has had no abdominal pain, nausea, or vomiting. No fever or chills. States he is refusing the insulin as he is allergic and "that stuff will kill him." - Review of Systems General: Reports: No Symptoms HEENT: Reports: No Symptoms Pulmonary: Reports: Cough. Denies: Shortness of Breath Cardiovascular: Reports: No Symptoms Gastrointestinal: Reports: No Symptoms Genitourinary: Reports: No Symptoms Musculoskeletal: Reports: No Symptoms Skin: Reports: No Symptoms Neurological: Reports: No Symptoms Psychiatric: Reports: No Symptoms - Patient Data Vitals - Most Recent: Last Vital Signs Temp 36.6 C 11/03/20 06:00 Pulse 72 11/03/20 06:00 Resp 20 11/03/20 06:00 BP 133/79 11/03/20 06:00 Pulse Ox 92 L 11/03/20 06:00 Weight - Most Recent: 113.398 kg I&O - Last 24 Hours: Intake & Output 11/02/20 11/03/20 11/03/20 22:59 06:59 14:59 Intake Total 320 750 Output Total 850 550 Balance -530 200 Lab Results Last 24 Hours: Laboratory Results - last 24 hr 11/02/20 11/02/20 11/03/20 Range/Units 07:53 17:46 05:31 WBC 5.0 (4.0-10.0) x10^3/uL RBC 5.35 (4.5-6.0) x10^6/uL Hgb 15.9 (14.0-18.0) g/dL Hct 46.3 (40.0-52.0) % MCV 86.5 (78.0-93.0) fL MCH 29.7 (26.0-32.0) pg MCHC 34.3 (32.0-36.0) g/dL RDW Coeff of John 13.4 (10.0-15.0) % Plt Count 83 L (130-400) x10^3/uL Neut % (Auto) (50.0-80.0) % Lymph % (Auto) (25.0-50.0) % [place] % (Auto) (2.0-11.0) % Eos % (Auto) (0.0-4.0) % Baso % (Auto) (0.2-1.2) % Add Manual Diff Yes Neutrophils % (Manual) 70 (50-80) % Band Neutrophils % 2 (0-6) % Lymphocytes % (Manual) 15 L (25-50) % Monocytes % (Manual) 12 H (2-11) % Eosinophils % (Manual) 1 (0-4) % Platelet Estimate Decreased L Clumped Platelets Moderate H Sodium (136-145) mmol/L Potassium (3.5-5.1) mmol/L Chloride (98-107) mmol/L Carbon Dioxide (21-32) mmol/L Anion Gap (5-15) mmol/L BUN (7-18) mg/dL Creatinine (0.70-1.30) mg/dL Est Cr Clr Drug Dosing mL/min Estimated GFR (MDRD) Glucose (70-99) mg/dL POC Glucose 446 H* 239 H (70-99) mg/dL Calcium (8.5-10.1) mg/dL 11/03/20 11/03/20 Range/Units 07:00 07:00 WBC 5.3 (4.0-10.0) x10^3/uL RBC 5.35 (4.5-6.0) x10^6/uL Hgb 15.8 (14.0-18.0) g/dL Hct 46.2 (40.0-52.0) % MCV 86.4 (78.0-93.0) fL MCH 29.5 (26.0-32.0) pg MCHC 34.2 (32.0-36.0) g/dL RDW Coeff of John 13.4 (10.0-15.0) % Plt Count 134 (130-400) x10^3/uL Neut % (Auto) 74.4 (50.0-80.0) % Lymph % (Auto) 13.7 L (25.0-50.0) % Red[place] % (Auto) 10.5 (2.0-11.0) % Eos % (Auto) 0.8 (0.0-4.0) % Baso % (Auto) 0.6 (0.2-1.2) % Add Manual Diff Neutrophils % (Manual) (50-80) % Band Neutrophils % (0-6) % Lymphocytes % (Manual) (25-50) % Monocytes % (Manual) (2-11) % Eosinophils % (Manual) (0-4) % Platelet Estimate Clumped Platelets Sodium 136 (136-145) mmol/L Potassium 4.5 (3.5-5.1) mmol/L Chloride 101 (98-107) mmol/L Carbon Dioxide 30 (21-32) mmol/L Anion Gap 9.5 (5-15) mmol/L BUN 24 H (7-18) mg/dL Creatinine 1.1 (0.70-1.30) mg/dL Est Cr Clr Drug Dosing 66.36 mL/min Estimated GFR (MDRD) > 60 Glucose 282 H (70-99) mg/dL POC Glucose (70-99) mg/dL Calcium 10.6 H (8.5-10.1) mg/dL Med Orders - Current: Current Medications Acetaminophen (Acetaminophen 325 Mg Tab) 650 mg PO Q6H PRN PRN Reason: Pain Last Admin: 11/02/20 07:55 Dose: 650 mg Documented by: Ascorbic Acid (Ascorbic Acid 500 Mg Tab) 1,000 mg PO DAILY [facility] Last Admin: 11/02/20 07:52 Dose: 1,000 mg Documented by: Cholecalciferol (Cholecalciferol (Vitamin D3) 25 Mcg Tab) 25 mcg PO DAILY [facility] Last Admin: 11/02/20 07:52 Dose: 25 mcg Documented by: Cyclobenzaprine HCl (Cyclobenzaprine 10 Mg Tab) 5 mg PO Q8H PRN PRN Reason: Pain Last Admin: 10/29/20 21:07 Dose: 5 mg Documented by: Dexamethasone 2 mg/ (Dexamethasone 4 mg) 6 mg PO DAILY [facility] Last Admin: 11/02/20 07:53 Dose: 6 mg Documented by: Dextrose/Water (50% Dextrose In Water 50 Ml Syringe) 50 ml IV ASDIRECTED PRN PRN Reason: Hypoglycemia Enoxaparin Sodium (Enoxaparin 40 Mg/0.4 Ml Syringe) 40 mg SUBCUT Q24H [facility] Last Admin: 11/02/20 07:52 Dose: 40 mg Documented by: Glucagon (Glucagon,Human Recombinant 1 Mg Vial) 1 mg IM ASDIRECTED PRN PRN Reason: Hypoglycemia Metformin HCl (Metformin 500 Mg Tab) 1,000 mg PO BIDMEALS [facility] Last Admin: 11/02/20 17:41 Dose: 1,000 mg Documented by: Ondansetron HCl (Ondansetron 4 Mg/2 Ml Sdv) 4 mg IVPUSH Q8H PRN PRN Reason: Nausea Sodium Chloride (Sodium Chloride 0.9% 10 Ml Syringe) 10 ml FLUSH ASDIRECTED PRN PRN Reason: Keep Vein Open Last Admin: 11/01/20 08:29 Dose: 10 ml Documented by: Zinc Sulfate (Zinc Sulfate 220 Mg Cap) 220 mg PO DAILY [facility] Last Admin: 11/02/20 07:53 Dose: 220 mg Documented by: Discontinued Medications Dexamethasone 2 mg/ (Dexamethasone 4 mg) 6 mg PO ONETIME ONE Stop: 10/27/20 19:34 Last Admin: 10/28/20 00:16 Dose: Not Given Documented by: Lactated Ringer's (Ringers, Lactated) 1,000 mls @ 999 mls/hr IV ONETIME ONE Stop: 10/27/20 16:47 Last Admin: 10/27/20 16:02 Dose: 999 mls/hr Documented by: Lactated Ringer's (Ringers, Lactated) 1,000 mls @ 250 mls/hr IV ASDIRECTED [facility] Last Admin: 10/27/20 17:21 Dose: 250 mls/hr Documented by: Remdesivir 200 mg/ Sodium (Chloride) 250 mls @ 250 mls/hr IV ONETIME ONE Stop: 10/28/20 09:46 Last Admin: 10/28/20 09:36 Dose: 250 mls/hr Documented by: Remdesivir 100 mg/ Sodium (Chloride) 100 mls @ 100 mls/hr IV Q24H [facility] Stop: 11/01/20 10:14 Last Admin: 11/01/20 08:29 Dose: 100 mls/hr Documented by: Insulin Human Lispro (Insulin Lispro 100 Units/Ml 3 Ml Vial) 0 unit SUBCUT TIDMEALS [facility]; Protocol Last Admin: 10/30/20 12:17 Dose: Not Given Documented by: Iopamidol (Iopamidol 612 Mg/Ml 100 Ml Bottle) 100 ml IVPUSH ONETIME ONE Stop: 10/27/20 19:55 Last Admin: 10/27/20 19:54 Dose: 100 ml Documented by: Metformin HCl (Metformin 500 Mg Tab) 1,000 mg PO DAILY [facility] Last Admin: 10/30/20 14:08 Dose: 1,000 mg Documented by: Metformin HCl (Metformin 500 Mg Tab) 1,000 mg PO BIDMEALS [facility] Ondansetron HCl (Ondansetron 4 Mg/2 Ml Sdv) 4 mg IV ONETIME ONE Stop: 10/27/20 15:48 Last Admin: 10/27/20 16:04 Dose: 4 mg Documented by: - Exam Quality Assessment: Supplemental Oxygen General: Alert, Oriented, Cooperative, No Acute Distress HEENT: Mucous Membr. Moist/[place] Neck: Supple, Trachea Midline, No Thyromegaly. No: Lymphadenopathy Lungs: Clear to Auscultation, Normal Respiratory Effort Cardiovascular: Regular Rate, Regular Rhythm, No Murmurs GI/Abdominal Exam: Normal Bowel Sounds, Soft, Non-Tender, No Organomegaly, No Distention, No Mass Extremities: Normal Inspection, Non-Tender, No Pedal Edema, Normal Capillary Refill Peripheral Pulses: 2+: Radial (L), Radial (R) Skin: Warm, Dry, Intact Neurological: No New Focal Deficit - Patient Data Lab Results Last 24 hrs: Laboratory Results - last 24 hr 11/02/20 11/02/20 11/03/20 Range/Units 07:53 17:46 05:31 WBC 5.0 (4.0-10.0) x10^3/uL RBC 5.35 (4.5-6.0) x10^6/uL Hgb 15.9 (14.0-18.0) g/dL Hct 46.3 (40.0-52.0) % MCV 86.5 (78.0-93.0) fL MCH 29.7 (26.0-32.0) pg MCHC 34.3 (32.0-36.0) g/dL RDW Coeff of John 13.4 (10.0-15.0) % Plt Count 83 L (130-400) x10^3/uL Neut % (Auto) (50.0-80.0) % Lymph % (Auto) (25.0-50.0) % Redwood % (Auto) (2.0-11.0) % Eos % (Auto) (0.0-4.0) % Baso % (Auto) (0.2-1.2) % Add Manual Diff Yes Neutrophils % (Manual) 70 (50-80) % Band Neutrophils % 2 (0-6) % Lymphocytes % (Manual) 15 L (25-50) % Monocytes % (Manual) 12 H (2-11) % Eosinophils % (Manual) 1 (0-4) % Platelet Estimate Decreased L Clumped Platelets Moderate H Sodium (136-145) mmol/L Potassium (3.5-5.1) mmol/L Chloride (98-107) mmol/L Carbon Dioxide (21-32) mmol/L Anion Gap (5-15) mmol/L BUN (7-18) mg/dL Creatinine (0.70-1.30) mg/dL Est Cr Clr Drug Dosing mL/min Estimated GFR (MDRD) Glucose (70-99) mg/dL POC Glucose 446 H* 239 H (70-99) mg/dL Calcium (8.5-10.1) mg/dL 11/03/20 11/03/20 Range/Units 07:00 07:00 WBC 5.3 (4.0-10.0) x10^3/uL RBC 5.35 (4.5-6.0) x10^6/uL Hgb 15.8 (14.0-18.0) g/dL Hct 46.2 (40.0-52.0) % MCV 86.4 (78.0-93.0) fL MCH 29.5 (26.0-32.0) pg MCHC 34.2 (32.0-36.0) g/dL RDW Coeff of John 13.4 (10.0-15.0) % Plt Count 134 (130-400) x10^3/uL Neut % (Auto) 74.4 (50.0-80.0) % Lymph % (Auto) 13.7 L (25.0-50.0) % Redwood % (Auto) 10.5 (2.0-11.0) % Eos % (Auto) 0.8 (0.0-4.0) % Baso % (Auto) 0.6 (0.2-1.2) % Add Manual Diff Neutrophils % (Manual) (50-80) % Band Neutrophils % (0-6) % Lymphocytes % (Manual) (25-50) % Monocytes % (Manual) (2-11) % Eosinophils % (Manual) (0-4) % Platelet Estimate Clumped Platelets Sodium 136 (136-145) mmol/L Potassium 4.5 (3.5-5.1) mmol/L Chloride 101 (98-107) mmol/L Carbon Dioxide 30 (21-32) mmol/L Anion Gap 9.5 (5-15) mmol/L BUN 24 H (7-18) mg/dL Creatinine 1.1 (0.70-1.30) mg/dL Est Cr Clr Drug Dosing 66.36 mL/min Estimated GFR (MDRD) > 60 Glucose 282 H (70-99) mg/dL POC Glucose (70-99) mg/dL Calcium 10.6 H (8.5-10.1) mg/dL Result Diagrams: 11/03/20 07:00 11/03/20 07:00 Sepsis Event Note - Evaluation Sepsis Screening Result: No Definite Risk - Focused Exam Vital Signs: Vital Signs Temp Pulse Resp BP Pulse Ox Pulse Ox 11/03/20 06:00 36.6 C 72 20 133/79 92 L 11/03/20 01:58 90 L 11/03/20 01:56 36.6 C 65 18 122/71 90 L 11/02/20 22:25 90 L 11/02/20 22:05 36.6 C 78 16 127/73 90 L - Problem List & Annotations (1) Respiratory failure SNOMED Code(s): 714158371 Code(s): J96.90 - RESPIRATORY FAILURE, UNSP, UNSP W HYPOXIA OR HYPERCAPNIA Status: Acute Current Visit: Yes Qualifiers: Chronicity: acute Respiratory failure complication: hypoxia Qualified Code(s): J96.01 - Acute respiratory failure with hypoxia (2) COVID-19 SNOMED Code(s): 916818695 Code(s): U07.1 - COVID-19 Status: Acute Current Visit: Yes (3) Pancreatitis SNOMED Code(s): 12414952 Code(s): K85.90 - ACUTE PANCREATITIS WITHOUT NECROSIS OR INFECTION, UNSP Status: Acute Current Visit: Yes Qualifiers: Chronicity: acute Pancreatitis type: unspecified pancreatitis type Acute pancreatitis complication: unspecified Qualified Code(s): K85.90 - Acute pancreatitis without necrosis or infection, unspecified (4) Hyperkalemia SNOMED Code(s): 77297985 Code(s): E87.5 - HYPERKALEMIA Status: Acute Current Visit: Yes (5) Acute kidney injury SNOMED Code(s): 52519941, 06926921 Code(s): N17.9 - ACUTE KIDNEY FAILURE, UNSPECIFIED Status: Acute Current Visit: Yes Annotation/Comment:: Most likely due to outlet obstruction (6) Leukopenia SNOMED Code(s): 25267935, 818022786 Code(s): D72.819 - DECREASED WHITE BLOOD CELL COUNT, UNSPECIFIED Status: Acute Current Visit: Yes Qualifiers: Leukopenia type: unspecified Qualified Code(s): D72.819 - Decreased white blood cell count, unspecified (7) Thrombocytopenia SNOMED Code(s): 615728477 Code(s): D69.6 - THROMBOCYTOPENIA, UNSPECIFIED Status: Acute Current Visit: Yes (8) Transaminitis SNOMED Code(s): 935334911, 181117916 Code(s): R74.01 - ELEVATION OF LEVELS OF LIVER TRANSAMINASE LEVELS Status: Acute Current Visit: Yes (9) Cirrhosis SNOMED Code(s): 42359876 Code(s): K74.60 - UNSPECIFIED CIRRHOSIS OF LIVER Status: Chronic Current Visit: Yes (10) Atrial fibrillation SNOMED Code(s): 78286511 Code(s): I48.91 - UNSPECIFIED ATRIAL FIBRILLATION Status: Chronic Current Visit: Yes (11) Diabetes SNOMED Code(s): 51579629 Code(s): E11.9 - TYPE 2 DIABETES MELLITUS WITHOUT COMPLICATIONS Status: Chronic Current Visit: Yes (12) Obesity SNOMED Code(s): 576058150, 528924885 Code(s): E66.9 - OBESITY, UNSPECIFIED Status: Chronic Current Visit: Yes - Problem List Review Problem List Initiated/Reviewed/Updated: Yes - Assessment Assessment:: 70 yo male hospital day #8 with COVID and pancreatitis. Doing much better today compared to when I saw him last week and even than yesterday in comparison to the notes. Has been weaned to 1L of oxygen only. - Plan Plan:: #1 Acute hypoxic respiratory failure, secondary to #2 #2 COVID-19 - Supplemental oxygen to maintain saturations >90%. - Continuous pulse oximetry. - Remdesivir - completed 5 day course with last dose given 11/01 - Liver labs daily. - Dexamethasone 6 mg PO daily x 10 days (last dose 10/05). #3 Pancreatitis, resolved - Cause is COVID vs alcohol. - Patient has been on a regular diet for multiple days without any issues. - Not checking lipase any further unless symptoms recur. #4 Hyperkalemia, resolved - Mild elevation in K late last week. - Has been normal since. #5 MARIA, resolved - Likely secondary to dehydration/prerenal etiology. - Creatinine stable over multiple days without any IV fluids needed. #6 Leukopenia, resolved #7 Thrombocytopenia, resolved - Both acute and likely secondary to the COVID. - Now resolved. - Will not monitor further unless patient is here another 3 days in which case he would need monitoring for being on lovenox. #8 Transaminitis, resolved #9 Cirrhosis - Patient has a history of cirrhosis but has always had normal liver enzymes; elevation likely related to COVID. - Last liver enzymes were within normal or only slightly abnormal. - He has already had an extensive evaluation with GI previously for alternative causes to obesity and alcohol. - Will plan to update u/s as an outpatient. #10 A-fib - Single episode during hospitalization in 2019. - Will monitor for recurrence during this hospitalization. None so far. - Was to do a zio patch but never completed this. - Will need to follow-up outpatient. #11 Diabetes - Patient has not been taking any medications for this. - Glucoses have been high while he has been on the dexamethasone. - Tolerating metformin without any issues; will continue. - As patient has not been agreeable to any other medication therapy, will d/c glucose checks. - Anticipate resolution of hyperglycemia as soon as he is off the dexamethasone. #12 Obesity Patient is on no home medications. Will not check labs tomorrow as they have been normal for multiple days. Code status is full. Platelets normal and CrCl >30 - continue lovenox for VTE prophylaxis. Disposition: Patient will remain on acute today - he has had a significant decrease in O2 requirements over the past 24 hours. Therefore, I am more opt imistic we can wean this prior to d/c. They will work on this today. PT will also evaluate him. Depending on ability to wean O2 and PT evaluation, will consider d/c home vs swing bed tomorrow. Patient does not require transfer to a higher level of care at this point as he is improving; he is also not quite ready for d/c, although I expect this to be the case tomorrow.
[2020-11-03] MEDS: Zinc Sulfate 220 MG Cap PO SCH (08:43)
[2020-11-03] MEDS: Ascorbic Acid 500 MG Tab PO SCH (08:43)
[2020-11-03] MEDS: Enoxaparin 40 MG/0.4 ML Syringe SUBCUT SCH (08:43)
[2020-11-03] MEDS: dexAMETHasone 2 MG, dexAMETHasone 4 MG PO SCH ×2 (08:43)
[2020-11-03] MEDS: Cholecalciferol (Vitamin D3) 25 MCG Tab PO SCH (08:43)
[2020-11-03] MEDS: metFORMIN 500 MG Tab PO SCH ×2 (08:43→17:59)
--- NOTE | 2020-11-04 08:31 | PCM.DCSUM1 ---
Discharge Summary - Hospital Course Brief History: Mr. Allan is a 70 yo male who was admitted with pancreatitis and COVID after presenting to the ER for evaluation of nausea and vomiting. - Discharge Data Discharge Date: 11/04/20 Discharge Disposition: Home, Self-Care 01 Condition: Good - Referral to Home Health Primary Care Physician: PCP None - Discharge Diagnosis/Problem(s) (1) Respiratory failure SNOMED Code(s): 393228552 ICD Code: J96.90 - RESPIRATORY FAILURE, UNSP, UNSP W HYPOXIA OR HYPERCAPNIA Status: Acute Current Visit: Yes Qualifiers: Chronicity: acute Respiratory failure complication: hypoxia Qualified Code(s): J96.01 - Acute respiratory failure with hypoxia (2) COVID-19 SNOMED Code(s): 777178606 ICD Code: U07.1 - COVID-19 Status: Acute Current Visit: Yes (3) Pancreatitis SNOMED Code(s): 68898693 ICD Code: K85.90 - ACUTE PANCREATITIS WITHOUT NECROSIS OR INFECTION, UNSP Status: Acute Current Visit: Yes Qualifiers: Chronicity: acute Pancreatitis type: unspecified pancreatitis type Acute pancreatitis complication: unspecified Qualified Code(s): K85.90 - Acute pancreatitis without necrosis or infection, unspecified (4) Hyperkalemia SNOMED Code(s): 07151991 ICD Code: E87.5 - HYPERKALEMIA Status: Acute Current Visit: Yes (5) Acute kidney injury SNOMED Code(s): 09396589, 61649697 ICD Code: N17.9 - ACUTE KIDNEY FAILURE, UNSPECIFIED Status: Acute Current Visit: Yes Problem Details: Most likely due to outlet obstruction (6) Leukopenia SNOMED Code(s): 67304511, 288579805 ICD Code: D72.819 - DECREASED WHITE BLOOD CELL COUNT, UNSPECIFIED Status: Acute Current Visit: Yes Qualifiers: Leukopenia type: unspecified Qualified Code(s): D72.819 - Decreased white blood cell count, unspecified (7) Thrombocytopenia SNOMED Code(s): 624166829 ICD Code: D69.6 - THROMBOCYTOPENIA, UNSPECIFIED Status: Acute Current Visit: Yes (8) Transaminitis SNOMED Code(s): 338349289, 310451205 ICD Code: R74.01 - ELEVATION OF LEVELS OF LIVER TRANSAMINASE LEVELS Status: Acute Current Visit: Yes (9) Cirrhosis SNOMED Code(s): 47685092 ICD Code: K74.60 - UNSPECIFIED CIRRHOSIS OF LIVER Status: Chronic Current Visit: Yes (10) Atrial fibrillation SNOMED Code(s): 40443608 ICD Code: I48.91 - UNSPECIFIED ATRIAL FIBRILLATION Status: Chronic Current Visit: Yes (11) Diabetes SNOMED Code(s): 28937075 ICD Code: E11.9 - TYPE 2 DIABETES MELLITUS WITHOUT COMPLICATIONS Status: Chronic Current Visit: Yes (12) Obesity SNOMED Code(s): 779991490, 040192867 ICD Code: E66.9 - OBESITY, UNSPECIFIED Status: Chronic Current Visit: Yes - Patient Summary/Data Operative Procedure(s) Performed: none Complications: none Consults: Consultations 11/03/20 09:16 PT Evaluation and Treatment [CONS] Routine Labs Pending at D/C: none Recommended Follow-up Testing/Procedures: none Planned Operative Procedure(s) after DC: none Hospital Course: Initial labs were notable for elevated lipase, MARIA, elevated liver enzymes, thrombocytopenia, and leukopenia. The patient was given IV fluids and started on dexamethasone in the ER. Upon admission, the IV fluids were discontinued and he was allowed to drink ad honey. The dexamethasone was continued. His renal function and liver enzymes had improved as of the following morning. He was then started on remdesivir as well. He was initially on clear liquids but his diet was already able to be advanced on hospital day #2 to a regular diet. He tolerated the remdesivir without any issues. Liver enzymes progressively improved, as did his lipase, WBC, and platelet counts. Labs had all normalized at the time of discharge. He completed his 5 day course of remdesivir on 11/01 and completed 9 days of dexamethasone as well. He did require supplemental oxygen up to 5L at one point but has been weaned to 1L over the past 24-48 hours. He has not been able to get off the oxygen completely but is ok with going home on oxygen. He has been eating and drinking well. He has been ambulatory in his room on his own without any issues. He feels comfortable with d/c home today. His hospitalization was complicated by hyperglycemia for which he was started on metformin with minimal improvement. He refused insulin, stating that he was allergic to this. This is felt to be secondary to the dexamethasone. He will remain on metformin for now and this will be reassessed with future visits on whether anything else is needed in addition. His hospitalization was otherwise uncomplicated. He will follow-up in clinic in 1 week. - Patient Instructions Diet: Diabetic Diet Activity: As Tolerated Showering/Bathing: May Shower Notify Provider of: Fever - Discharge Plan *PRESCRIPTION DRUG MONITORING PROGRAM REVIEWED*: Not Applicable *COPY OF PRESCRIPTION DRUG MONITORING REPORT IN PATIENT LIZZIE: Not Applicable Prescriptions/Med Rec: metFORMIN [Glucophage] 1,000 mg PO BIDMEALS #60 tablet Home Medications: Home Meds metFORMIN [Glucophage] 1,000 mg PO BIDMEALS #60 tablet 11/04/20 [Rx] Forms: ED Department Discharge Referrals: PCP,None [Primary Care Provider] - Shavon Urbina MD [Physician] - 11/13/20 11:00 am (You have a follow up appt. with Dr. Mariann Urbina on November 13, 2020 at 11am.---[facility]. Ple ase wear a mask to your appt.) - Discharge Summary/Plan Comment DC Time >30 min.: No - General Info Date of Service: 11/04/20 Subjective Update: 70 yo male admitted with pancreatitis and COVID. States he is ready to go home today. He has been up and ambulatory in his room without any issues. He denies any myalgias or weakness. No shortness of breath. Cough is minimal. No abdominal pain. He has been eating/drinking well with no nausea or vomiting. - Review of Systems General: Reports: No Symptoms HEENT: Reports: No Symptoms Pulmonary: Reports: No Symptoms Cardiovascular: Reports: No Symptoms Gastrointestinal: Reports: No Symptoms Genitourinary: Reports: No Symptoms Musculoskeletal: Reports: No Symptoms Skin: Reports: No Symptoms Neurological: Reports: No Symptoms Psychiatric: Reports: No Symptoms - Patient Data Vitals - Most Recent: Last Vital Signs Temp 36.6 C 11/04/20 02:05 Pulse 79 11/04/20 06:30 Resp 18 11/04/20 06:30 BP 132/78 11/04/20 06:30 Pulse Ox 93 L 11/04/20 06:30 Weight - Most Recent: 113.398 kg I&O - Last 24 hours: Intake & Output 11/03/20 11/04/20 11/04/20 22:59 06:59 14:59 Intake Total 500 Output Total 850 Balance -850 500 Lab Results - Last 24 hrs: Laboratory Results - last 24 hr 11/03/20 11/04/20 Range/Units 17:44 05:42 POC Glucose 475 H* 239 H (70-99) mg/dL Med Orders - Current: Current Medications Acetaminophen (Acetaminophen 325 Mg Tab) 650 mg PO Q6H PRN PRN Reason: Pain Last Admin: 11/02/20 07:55 Dose: 650 mg Documented by: Ascorbic Acid (Ascorbic Acid 500 Mg Tab) 1,000 mg PO DAILY [facility] Last Admin: 11/03/20 08:43 Dose: 1,000 mg Documented by: Cholecalciferol (Cholecalciferol (Vitamin D3) 25 Mcg Tab) 25 mcg PO DAILY [facility] Last Admin: 11/03/20 08:43 Dose: 25 mcg Documented by: Cyclobenzaprine HCl (Cyclobenzaprine 10 Mg Tab) 5 mg PO Q8H PRN PRN Reason: Pain Last Admin: 10/29/20 21:07 Dose: 5 mg Documented by: Dexamethasone 2 mg/ (Dexamethasone 4 mg) 6 mg PO DAILY [facility] Last Admin: 11/03/20 08:43 Dose: 6 mg Documented by: Dextrose/Water (50% Dextrose In Water 50 Ml Syringe) 50 ml IV ASDIRECTED PRN PRN Reason: Hypoglycemia Enoxaparin Sodium (Enoxaparin 40 Mg/0.4 Ml Syringe) 40 mg SUBCUT Q24H [facility] Last Admin: 11/03/20 08:43 Dose: 40 mg Documented by: Glipizide (Glipizide 10 Mg Tab) 10 mg PO DAILY [facility] Glucagon (Glucagon,Human Recombinant 1 Mg Vial) 1 mg IM ASDIRECTED PRN PRN Reason: Hypoglycemia Metformin HCl (Metformin 500 Mg Tab) 1,000 mg PO BIDMEALS [facility] Last Admin: 11/03/20 17:59 Dose: 1,000 mg Documented by: Ondansetron HCl (Ondansetron 4 Mg/2 Ml Sdv) 4 mg IVPUSH Q8H PRN PRN Reason: Nausea Sodium Chloride (Sodium Chloride 0.9% 10 Ml Syringe) 10 ml FLUSH ASDIRECTED PRN PRN Reason: Keep Vein Open Last Admin: 11/01/20 08:29 Dose: 10 ml Documented by: Zinc Sulfate (Zinc Sulfate 220 Mg Cap) 220 mg PO DAILY [facility] Last Admin: 11/03/20 08:43 Dose: 220 mg Documented by: Discontinued Medications Dexamethasone 2 mg/ (Dexamethasone 4 mg) 6 mg PO ONETIME ONE Stop: 10/27/20 19:34 Last Admin: 10/28/20 00:16 Dose: Not Given Documented by: Lactated Ringer's (Ringers, Lactated) 1,000 mls @ 999 mls/hr IV ONETIME ONE Stop: 10/27/20 16:47 Last Admin: 10/27/20 16:02 Dose: 999 mls/hr Documented by: Lactated Ringer's (Ringers, Lactated) 1,000 mls @ 250 mls/hr IV ASDIRECTED [facility] Last Admin: 10/27/20 17:21 Dose: 250 mls/hr Documented by: Remdesivir 200 mg/ Sodium (Chloride) 250 mls @ 250 mls/hr IV ONETIME ONE Stop: 10/28/20 09:46 Last Admin: 10/28/20 09:36 Dose: 250 mls/hr Documented by: Remdesivir 100 mg/ Sodium (Chloride) 100 mls @ 100 mls/hr IV Q24H [facility] Stop: 11/01/20 10:14 Last Admin: 11/01/20 08:29 Dose: 100 mls/hr Documented by: Insulin Human Lispro (Insulin Lispro 100 Units/Ml 3 Ml Vial) 0 unit SUBCUT TIDMEALS [facility]; Protocol Last Admin: 10/30/20 12:17 Dose: Not Given Documented by: Iopamidol (Iopamidol 612 Mg/Ml 100 Ml Bottle) 100 ml IVPUSH ONETIME ONE Stop: 10/27/20 19:55 Last Admin: 10/27/20 19:54 Dose: 100 ml Documented by: Metformin HCl (Metformin 500 Mg Tab) 1,000 mg PO DAILY [facility] Last Admin: 10/30/20 14:08 Dose: 1,000 mg Documented by: Metformin HCl (Metformin 500 Mg Tab) 1,000 mg PO BIDMEALS [facility] Ondansetron HCl (Ondansetron 4 Mg/2 Ml Sdv) 4 mg IV ONETIME ONE Stop: 10/27/20 15:48 Last Admin: 10/27/20 16:04 Dose: 4 mg Documented by: - Exam General: Reports: Alert, Oriented, Cooperative, No Acute Distress HEENT: Reports: Mucous Membr. Moist/Rains Neck: Reports: Supple, Trachea Midline, No Thyromegaly. Denies: Lymphadenopathy Lungs: Reports: Clear to Auscultation, Normal Respiratory Effort Cardiovascular: Reports: Regular Rate, Regular Rhythm, No Murmurs GI/Abdominal Exam: Normal Bowel Sounds, Soft, Non-Tender, No Organomegaly, No Distention, No Mass Extremities: Non-Tender, No Pedal Edema, Normal Capillary Refill Skin: Reports: Warm, Dry, Intact Neurological: Reports: No New Focal Deficit
[2020-11-04] MEDS: Cholecalciferol (Vitamin D3) 25 MCG Tab PO SCH (08:32)
[2020-11-04] MEDS: Enoxaparin 40 MG/0.4 ML Syringe SUBCUT SCH (08:32)
[2020-11-04] MEDS: dexAMETHasone 2 MG, dexAMETHasone 4 MG PO SCH ×2 (08:32)
[2020-11-04] MEDS: Ascorbic Acid 500 MG Tab PO SCH (08:32)
[2020-11-04] MEDS: metFORMIN 500 MG Tab PO SCH (08:32)
[2020-11-04] MEDS: Zinc Sulfate 220 MG Cap PO SCH (08:32)
== END 2020-11-04 10:25 | disposition home or self-care (01) | DRG 177 ==
LOC: VM.ED 15:06 → VM.MS 20:28
PROVIDERS: ADMIT Family Medicine; ATTEND Family Medicine
PROC: XW033E5 Introduction of Remdesivir Anti-infective into Peripheral Vein, Percutaneous Approach, New Technology Group 5 (ICD-10-PCS; principal; 2020-10-27)
DX: U07.1 COVID-19 (principal); J96.01 Acute respiratory failure with hypoxia; K85.90 Acute pancreatitis without necrosis or infection, unspecified; J12.82 Pneumonia due to coronavirus disease 2019; N17.9 Acute kidney failure, unspecified; E87.5 Hyperkalemia; D69.6 Thrombocytopenia, unspecified; R74.01 Elevation of levels of liver transaminase levels; K74.60 Unspecified cirrhosis of liver; I48.91 Unspecified atrial fibrillation; E11.9 Type 2 diabetes mellitus without complications; E66.9 Obesity, unspecified; R73.9 Hyperglycemia, unspecified; M19.90 Unspecified osteoarthritis, unspecified site; Z96.659 Presence of unspecified artificial knee joint; D72.819 Decreased white blood cell count, unspecified; Z79.899 Other long term (current) drug therapy; Z87.442 Personal history of urinary calculi; Z86.19 Personal history of other infectious and parasitic diseases
CPT/HCPCS: 36415; 71045; 74177; 80053; 80307; 82728; 83605; 83615; 83690; 83735; 84145; 84484; 85025; 93005; 94760; 96361; 96374; 99284; 99285; J2405; J7120 ×2; Q9967; U0002; 80048; 81003; 82947; 84132; 85610; 86140; 97163-GP; A9270-GY; J1650; J7050; J8540

== ENCOUNTER 2022-04-11 10:40 | Emergency (ER) | payer MEDICARE, BC ==
[2022-04-11 12:00] LABS: CHLORIDE,CL 105 mmol/L (98-107); SODIUM,NA 135 mmol/L (136-145)
[2022-04-11 12:03] LABS: ANION GAP 10.5 mmol/L (5-15); ESTIMATED GFR 65 mL/min (>=60)
== END 2022-04-11 15:01 | disposition short-term general hospital (02) ==
LOC: VM.ED 10:40
DX: R53.1 Weakness (principal); R55 Syncope and collapse; I48.91 Unspecified atrial fibrillation; E11.9 Type 2 diabetes mellitus without complications; Z86.16 Personal history of COVID-19
CPT/HCPCS: 36415; 70450; 72125; 80053; 82550; 83615; 83735; 85025; 86140; 99284

== ENCOUNTER 2022-05-10 22:23 | Inpatient (IN) | payer MEDICARE, BC ==
[2022-05-10] MEDS ORDERED: Sodium Chloride 0.9% 10 ML Syringe FLUSH PRN (22:39)
[2022-05-10] MEDS ORDERED: Ketorolac 15 MG/ML SDV IVPUSH ONE (22:39)
[2022-05-10] MEDS ORDERED: Sodium Chloride 0.9% 1,000 ML IV ONE (22:39)
[2022-05-10] MEDS ORDERED: Ondansetron 4 MG/2 ML SDV IVPUSH ONE (22:39)
[2022-05-10 23:26] LABS: ANION GAP 14.7 mmol/L (5-15)
[2022-05-10] MEDS ORDERED: fentaNYL 50 MCG/ML SDV IVPUSH ONE (23:49)
[2022-05-11] MEDS ORDERED: Acetaminophen 325 MG Tab PO PRN (00:23)
[2022-05-11] MEDS ORDERED: Docusate Sodium 100 MG Cap PO PRN (00:23)
[2022-05-11] MEDS ORDERED: Ondansetron 4 MG Tab.DIS PO PRN (00:23)
[2022-05-11] MEDS ORDERED: Ketorolac 10 MG Tab PO PRN (00:37)
[2022-05-11 07:16] LABS: ANION GAP 11.7 mmol/L (5-15)
[2022-05-11] MEDS ORDERED: Sodium Chloride 0.9% 1,000 ML IV SCH (08:00)
[2022-05-11] MEDS ORDERED: Apixaban 2.5 MG Tab PO SCH (09:00)
[2022-05-11] MEDS ORDERED: Lisinopril 10 MG Tab PO SCH (09:00)
[2022-05-11] MEDS ORDERED: Tamsulosin 0.4 MG Cap.ER PO SCH (09:00)
[2022-05-11] MEDS ORDERED: atorvaSTATin 40 MG Tab PO SCH (21:00)
== END 2022-05-11 11:50 | disposition home or self-care (01) | DRG 694 ==
LOC: VM.ED 22:23 → VM.MS 05-11 00:15
PROVIDERS: ADMIT Physician Assistant; ATTEND Internal Medicine
DX: N20.2 Calculus of kidney with calculus of ureter (principal); N13.2 Hydronephrosis with renal and ureteral calculous obstruction; R11.2 Nausea with vomiting, unspecified; K74.69 Other cirrhosis of liver; I48.0 Paroxysmal atrial fibrillation; I10 Essential (primary) hypertension; I48.91 Unspecified atrial fibrillation; M19.90 Unspecified osteoarthritis, unspecified site; Z96.659 Presence of unspecified artificial knee joint; Z86.73 Personal history of transient ischemic attack (TIA), and cerebral infarction without residual deficits; Z79.4 Long term (current) use of insulin; Z87.442 Personal history of urinary calculi; Z79.01 Long term (current) use of anticoagulants; Z88.8 Allergy status to other drugs, medicaments and biological substances; Z86.19 Personal history of other infectious and parasitic diseases; Z86.16 Personal history of COVID-19; R16.0 Hepatomegaly, not elsewhere classified; E11.65 Type 2 diabetes mellitus with hyperglycemia
CPT/HCPCS: 36415; 74176; 80053; 81001; 83880; 85025; 96361; 96374; 96375; 99284; 99285-25; A9270-GY; J1885; J2405; J3010; J7030

== ENCOUNTER 2023-05-21 05:50 | Inpatient (IN) | payer MEDICARE, BC ==
[2023-05-21] MEDS ORDERED: Sodium Chloride 0.9% 10 ML Syringe FLUSH PRN (06:14)
[2023-05-21] MEDS ORDERED: Lactated Ringers 1,000 ML IV ONE ×2 (06:15→09:36)
[2023-05-21] MEDS ORDERED: Ondansetron 4 MG/2 ML SDV IVPUSH ONE (06:15)
[2023-05-21] MEDS ORDERED: Alum Hydroxide/Mag Hydroxide 30 ML, Lidocaine 2% 15 ML PO ONE ×2 (06:15)
[2023-05-21 06:26] LABS: BASOPHILS ABSOLUTE AUTO 0.1 x10^3/uL (0.0-0.2); BASOPHILS PERCENT AUTO 0.5 % (0.2-1.2); EOSINOPHILS ABSOLUTE AUTO 0.2 x10^3/uL (0.0-0.5); EOSINOPHILS PERCENT AUTO 1.5 % (0.0-4.0); HEMATOCRIT 50.3 % (40.0-52.0); HEMOGLOBIN 17.3 g/dL (14.0-18.0); IMMATURE GRAN ABSOLUTE AUTO 0.03 x10^3/uL (0.00-0.07); LYMPHOCYTES ABSOLUTE AUTO 1.8 x10^3/uL (1.0-4.8); LYMPHOCYTES PERCENT AUTO 16.8 % (25.0-50.0); MEAN CORPUSCULAR HEMOGLOBIN 29.8 pg (26.0-32.0); MEAN CORPUSCULAR HGB CONC 34.4 g/dL (32.0-36.0); MEAN CORPUSCULAR VOLUME 86.6 fL (78.0-93.0); MONOCYTES ABSOLUTE AUTO 1.1 x10^3/uL (0.0-0.8); MONOCYTES PERCENT AUTO 10.5 % (2.0-11.0); NEUTROPHILS ABSOLUTE AUTO 7.7 x10^3/uL (1.8-7.7); NEUTROPHILS PERCENT AUTO 70.4 % (50.0-80.0); PLATELET COUNT,PLT 185 x10^3/uL (130-400); RED BLOOD CELL COUNT 5.81 x10^6/uL (4.5-6.0); WHITE BLOOD CELL COUNT,WBC 10.9 x10^3/uL (4.0-10.0)
[2023-05-21 06:45] LABS: A/G RATIO 0.84; ALANINE AMINOTRANSFERASE,ALT 52 U/L (16-63); ALBUMIN 3.7 g/dL (3.4-5.0); ALKALINE PHOSPHATASE 111 U/L (46-116); AMYLASE 104 U/L (25-115); ASPARTATE AMNIOTRANSFERASE,AST 52 U/L (15-37); BLOOD UREA NITROGEN,BUN 22 mg/dL (7-18); CALCIUM 10.7 mg/dL (8.5-10.1); CREATININE 1.4 mg/dL (0.70-1.30); EST CRCL DRUG DOSING (CG) 50.69 mL/min; GLUCOSE RANDOM 183 mg/dL (70-99); LIPASE 225 U/L (19-71); MAGNESIUM 1.8 mg/dL (1.8-2.4); PROTEIN TOTAL,TP 8.1 g/dL (6.4-8.2)
[2023-05-21 06:48] LABS: C-REACTIVE PROTEIN < 0.50 mg/dL (<=0.50); ESTIMATED GFR 54 mL/min (>=60)
[2023-05-21 06:51] LABS: INR 1.3 (0.9-1.1); LACTIC ACID 2.3 mmol/L (0.4-2.0); PROTHROMBIN TIME 14.3 SEC (9.5-12.2); PTT,PARTIAL THROMBOPLSTIN TIME 29.9 SEC (23.6-33.6)
[2023-05-21 07:13] LABS: POTASSIUM,K 4.4 mmol/L (3.5-5.1); SODIUM,NA 138 mmol/L (136-145)
[2023-05-21 07:14] LABS: CHLORIDE,CL 102 mmol/L (98-107)
[2023-05-21 07:15] LABS: ANION GAP 13.4 mmol/L (5-15); CARBON DIOXIDE,CO2 27 mmol/L (21-32)
[2023-05-21] MEDS: Sodium Chloride 0.9% 1,000 ML IV SCH ×4 (07:19→20:27)
[2023-05-21] MEDS ORDERED: Alum Hydrox/Mag Hydrox/Simeth 30 ML, Lidocaine 2% 15 ML, Promethazine 12.5 MG PO ONE ×3 (07:22)
[2023-05-21] MEDS ORDERED: Iopamidol 612 MG/ML 100 ML Bottle IVPUSH ONE (07:39)
[2023-05-21] MEDS ORDERED: Sodium Chloride 0.9% 1,000 ML IV STA (11:30)
[2023-05-21] MEDS ORDERED: Ondansetron 4 MG/2 ML SDV IVPUSH PRN (11:30)
[2023-05-21] MEDS ORDERED: Magnesium Hydroxide 400 MG/5 ML Susp 30 ML Cup PO PRN (11:31)
[2023-05-21] MEDS: Metoclopramide 10 MG/2 ML SDV IVPUSH SCH ×3 (12:06→22:48)
[2023-05-21 12:08] LABS: APPEARANCE,URINE TURBID (CLEAR); BILIRUBIN,URINE SMALL (NEGATIVE); COLOR,URINE BROWN (YELLOW); GLUCOSE,URINE 250 mg/dL (NEGATIVE); KETONES,URINE 15 mg/dL (NEGATIVE); LEUKOCYTE ESTERASE,URINE NEGATIVE (NEGATIVE); NITRITE,URINE NEGATIVE (NEGATIVE); OCCULT BLOOD,URINE LARGE (NEGATIVE); PROTEIN,URINE 30 mg/dL (NEGATIVE)
[2023-05-21 12:27] LABS: BACTERIA,URINE OCCASIONAL /HPF (NOT SEEN); MUCUS,URINE OCCASIONAL /LPF (NOT SEEN); RBC,URINE PACKED /HPF (NOT SEEN); WBC,URINE 0-5 /HPF (NOT SEEN)
[2023-05-21 12:28] LABS: YEAST BUDDING,URINE OCCASIONAL /HPF (NONE - FEW)
[2023-05-21] MEDS: Morphine 2 MG/ML SYRINGE IVPUSH PRN ×2 (14:03→20:24)
[2023-05-21] MEDS: Metoprolol Succinate 25 MG Tab.ER PO SCH (14:47)
[2023-05-21] MEDS ORDERED: Ondansetron 4 MG Tab.DIS PO PRN (17:58)
[2023-05-21] MEDS ORDERED: Rivaroxaban 10 MG Tab PO SCH (18:00)
[2023-05-21] MEDS ORDERED: Acetaminophen 325 MG Tab PO PRN (18:15)
[2023-05-21] MEDS: Lisinopril 10 MG Tab PO SCH (18:21)
[2023-05-22] MEDS: Sodium Chloride 0.9% 1,000 ML IV SCH (03:32)
[2023-05-22] MEDS: Metoclopramide 10 MG/2 ML SDV IVPUSH SCH (05:48)
[2023-05-22 07:19] LABS: BASOPHILS ABSOLUTE AUTO 0.1 x10^3/uL (0.0-0.2); BASOPHILS PERCENT AUTO 0.6 % (0.2-1.2); EOSINOPHILS ABSOLUTE AUTO 0.5 x10^3/uL (0.0-0.5); EOSINOPHILS PERCENT AUTO 6.4 % (0.0-4.0); HEMATOCRIT 46.2 % (40.0-52.0); HEMOGLOBIN 15.9 g/dL (14.0-18.0); IMMATURE GRAN ABSOLUTE AUTO 0.02 x10^3/uL (0.00-0.07); LYMPHOCYTES ABSOLUTE AUTO 1.4 x10^3/uL (1.0-4.8); LYMPHOCYTES PERCENT AUTO 17.3 % (25.0-50.0); MEAN CORPUSCULAR HEMOGLOBIN 29.9 pg (26.0-32.0); MEAN CORPUSCULAR HGB CONC 34.4 g/dL (32.0-36.0); MEAN CORPUSCULAR VOLUME 86.8 fL (78.0-93.0); MONOCYTES PERCENT AUTO 12.3 % (2.0-11.0); NEUTROPHILS ABSOLUTE AUTO 5.1 x10^3/uL (1.8-7.7); NEUTROPHILS PERCENT AUTO 63.2 % (50.0-80.0); PLATELET COUNT,PLT 142 x10^3/uL (130-400); RED BLOOD CELL COUNT 5.32 x10^6/uL (4.5-6.0); WHITE BLOOD CELL COUNT,WBC 8.1 x10^3/uL (4.0-10.0)
[2023-05-22 07:35] LABS: A/G RATIO 0.88; BILIRUBIN TOTAL 1.5 mg/dL (0.2-1.0); CALCIUM 9.6 mg/dL (8.5-10.1); CREATININE 1.2 mg/dL (0.70-1.30); EST CRCL DRUG DOSING (CG) 59.14 mL/min; POTASSIUM,K 4.2 mmol/L (3.5-5.1); PROTEIN TOTAL,TP 6.4 g/dL (6.4-8.2)
[2023-05-22 07:36] LABS: ANION GAP 12.2 mmol/L (5-15)
[2023-05-22] MEDS ORDERED: Polyethylene Glycol 3350 Powder 17 GM Packet PO SCH (09:00)
[2023-05-22] MEDS: Metoprolol Succinate 25 MG Tab.ER PO SCH (09:03)
[2023-05-22] MEDS: Lisinopril 10 MG Tab PO SCH (09:13)
[2023-05-22] MEDS ORDERED: Metoclopramide 10 MG Tab PO SCH (11:00)
== END 2023-05-22 10:40 | disposition home or self-care (01) | DRG 439 ==
LOC: VM.ED 05:50 → VM.MS 07:24
PROVIDERS: ADMIT Nurse Practitioner Family; ATTEND Internal Medicine
DX: K85.90 Acute pancreatitis without necrosis or infection, unspecified (principal); E87.20 Acidosis, unspecified; I12.9 Hypertensive chronic kidney disease with stage 1 through stage 4 chronic kidney disease, or unspecified chronic kidney disease; E11.9 Type 2 diabetes mellitus without complications; E78.5 Hyperlipidemia, unspecified; E11.22 Type 2 diabetes mellitus with diabetic chronic kidney disease; E86.0 Dehydration; I48.91 Unspecified atrial fibrillation; Z88.7 Allergy status to serum and vaccine; K74.60 Unspecified cirrhosis of liver; E66.9 Obesity, unspecified; M17.0 Bilateral primary osteoarthritis of knee; D72.829 Elevated white blood cell count, unspecified; Z88.8 Allergy status to other drugs, medicaments and biological substances; Z87.442 Personal history of urinary calculi; Z91.148 Patient's other noncompliance with medication regimen for other reason; Z86.73 Personal history of transient ischemic attack (TIA), and cerebral infarction without residual deficits; Z79.01 Long term (current) use of anticoagulants; Z79.899 Other long term (current) drug therapy; Z86.16 Personal history of COVID-19; Z96.659 Presence of unspecified artificial knee joint; Z68.25 Body mass index [BMI] 25.0-25.9, adult
CPT/HCPCS: 36415; 74177; 80053; 81001; 82150; 82947; 83605; 83690; 83735; 85025; 85610; 85730; 86140; 96361; 96374; 99285-25; A9270-GY; J2270; J2405; J2765; J7030; J7120; Q9967

== ENCOUNTER 2024-01-17 09:54 | Emergency (ER) | payer MEDICARE, BC ==
[2024-01-17 10:52] LABS: CORONAVIRUS COVID-19 NAA POSITIVE (NEGATIVE); INFLUENZA A NAA NEGATIVE (NEGATIVE); INFLUENZA B NAA NEGATIVE (NEGATIVE); RESPIRATORY SYNCYTIAL VIR NAA NEGATIVE (NEGATIVE)
== END 2024-01-17 11:00 | disposition home or self-care (01) ==
LOC: VM.ED 09:54
DX: U07.1 COVID-19 (principal); R04.2 Hemoptysis; I48.91 Unspecified atrial fibrillation; E11.9 Type 2 diabetes mellitus without complications; Z79.899 Other long term (current) drug therapy; Z79.01 Long term (current) use of anticoagulants; Z88.8 Allergy status to other drugs, medicaments and biological substances
CPT/HCPCS: 0241U; 99283; 99284

== ENCOUNTER 2024-01-18 03:19 | Emergency (ER) | payer MEDICARE, BC ==
[2024-01-18] MEDS: Lactated Ringers 1,000 ML IV ONE (03:30)
== END 2024-01-18 04:55 ==
LOC: VM.ED 03:19
DX: S00.93XA Contusion of unspecified part of head, initial encounter (principal); E86.0 Dehydration; R53.1 Weakness; E11.9 Type 2 diabetes mellitus without complications; Z86.16 Personal history of COVID-19; Z79.899 Other long term (current) drug therapy; Z88.8 Allergy status to other drugs, medicaments and biological substances; W19.XXXA Unspecified fall, initial encounter
CPT/HCPCS: 70450; 96360; 99285-25; J7120

== ENCOUNTER 2024-09-27 16:14 | Emergency (ER) | payer MEDICARE, BC ==
[2024-09-27 17:02] LABS: BASOPHILS PERCENT AUTO 0.4 % (0.2-1.2); EOSINOPHILS ABSOLUTE AUTO 0.1 x10^3/uL (0.0-0.5); EOSINOPHILS PERCENT AUTO 0.6 % (0.0-4.0); HEMATOCRIT 43.6 % (40.0-52.0); HEMOGLOBIN 14.8 g/dL (14.0-18.0); IMMATURE GRAN ABSOLUTE AUTO 0.01 x10^3/uL (0.00-0.07); LYMPHOCYTES ABSOLUTE AUTO 1.2 x10^3/uL (1.0-4.8); LYMPHOCYTES PERCENT AUTO 15.8 % (25.0-50.0); MEAN CORPUSCULAR HEMOGLOBIN 30.1 pg (26.0-32.0); MEAN CORPUSCULAR HGB CONC 33.9 g/dL (32.0-36.0); MEAN CORPUSCULAR VOLUME 88.6 fL (78.0-93.0); MONOCYTES ABSOLUTE AUTO 0.9 x10^3/uL (0.0-0.8); MONOCYTES PERCENT AUTO 11.4 % (2.0-11.0); NEUTROPHILS ABSOLUTE AUTO 5.6 x10^3/uL (1.8-7.7); NEUTROPHILS PERCENT AUTO 71.7 % (50.0-80.0); PLATELET COUNT,PLT 156 x10^3/uL (130-400); RED BLOOD CELL COUNT 4.92 x10^6/uL (4.5-6.0); WHITE BLOOD CELL COUNT,WBC 7.8 x10^3/uL (4.0-10.0)
[2024-09-27 17:14] LABS: INR 1.1 (0.9-1.1); PROTHROMBIN TIME 12.2 SEC (9.6-12.0)
[2024-09-27 17:19] LABS: ALANINE AMINOTRANSFERASE,ALT 52 U/L (16-63); ALBUMIN 3.5 g/dL (3.4-5.0); ALKALINE PHOSPHATASE 153 U/L (46-116); ANION GAP 14.1 mmol/L (5-15); ASPARTATE AMNIOTRANSFERASE,AST 40 U/L (15-37); BILIRUBIN TOTAL 1.4 mg/dL (0.2-1.0); BLOOD UREA NITROGEN,BUN 19 mg/dL (7-18); CALCIUM 10.2 mg/dL (8.5-10.1); CARBON DIOXIDE,CO2 26 mmol/L (21-32); CHLORIDE,CL 105 mmol/L (98-107); CREATININE 1.4 mg/dL (0.70-1.30); ESTIMATED GFR 54 mL/min (>=60); GLUCOSE RANDOM 188 mg/dL (70-99); POTASSIUM,K 5.1 mmol/L (3.5-5.1); PROTEIN TOTAL,TP 7.4 g/dL (6.4-8.2); SODIUM,NA 140 mmol/L (136-145)
[2024-09-27] MEDS: Take Home: Acetaminophen/HYDROcodone 325-5 MG, 5 Tab Pack PO ONE (18:08)
== END 2024-09-27 18:13 | disposition home or self-care (01) ==
LOC: VM.ED 16:14
DX: S20.211A Contusion of right front wall of thorax, initial encounter (principal); I48.91 Unspecified atrial fibrillation; E11.9 Type 2 diabetes mellitus without complications; Z86.16 Personal history of COVID-19; Z88.8 Allergy status to other drugs, medicaments and biological substances; Z79.899 Other long term (current) drug therapy; Z79.01 Long term (current) use of anticoagulants; W17.89XA Other fall from one level to another, initial encounter; Y93.89 Activity, other specified
CPT/HCPCS: 36415; 71101-RT; 80053; 85025; 85610; 99283; A9270-GY

== ENCOUNTER 2024-12-18 13:17 | Emergency (ER) | payer MEDICARE, BC | END 2024-12-18 13:50 | disposition home or self-care (01) | LOC: VM.ED 13:17 | DX: J02.9 Acute pharyngitis, unspecified (principal); J01.90 Acute sinusitis, unspecified; R11.2 Nausea with vomiting, unspecified; E11.9 Type 2 diabetes mellitus without complications; E66.9 Obesity, unspecified; Z79.84 Long term (current) use of oral hypoglycemic drugs; Z79.899 Other long term (current) drug therapy; Z86.16 Personal history of COVID-19; Z68.35 Body mass index [BMI] 35.0-35.9, adult | CPT/HCPCS: 99283 ==